=== PATIENT | female | born 1980 | race Two or more races ===

== ENCOUNTER 2020-08-03 21:21 | Emergency (ER) | payer BC, SELFPAY ==
[2020-08-03 22:02] VITALS: BP 153/80; PULSE 73; RESP 16; TEMP 36.6; O2SAT 99; BMI 34.8
--- NOTE | 2020-08-03 22:59 | ED.GENADULT ---
HPI - General Adult General Chief complaint: General Medical Stated complaint: Flu like symptoms Source: patient Mode of arrival: ambulatory Limitations: no limitations History of Present Illness HPI narrative: Patient presents to ED for sore throat for 2 weeks even while being on antibiotics there has been approved no improvement sore throat. Patient states she see white spots in her left tonsil. Patient denies any drooling, chest pain, shortness of breath, coughing up blood, fever, or chills. Patient no one at home having COVID like symptoms Related Data Previous Rx's Medication Instructions Recorded azithromycin 250 mg tablet See Rx Instructions PO .COMPLEX #6 07/27/20 tab Allergies Allergy/AdvReac Type Severity Reaction Status Date / Time Iodinated Contrast Media Allergy Unknown HIVES Unverified 04/30/20 16:48 [IV CONTRAST] diphenhydramine AdvReac Unknown SHAKING Unverified 04/30/20 16:48 [From BENADRYL] Benadryl Allergy Unknown chest pains Uncoded 12/10/19 00:00 IV contrast dye Allergy Unknown facial rash Uncoded 12/10/19 00:00 Latex Allergy Unknown rash Uncoded 12/10/19 00:00 Review of Systems Review of Systems: Yes all other systems are reviewed and are negative Constitutional: Constitutional: Reports as per HPI and Reports no additional constitutional complaints Eyes: Eyes: Reports as per HPI and Reports no additional eye complaints ENT: Reports system reviewed and no additional complaints, except as documented, Reports as per HPI and Reports sore throat Cardiovascular: Cardiovascular: Reports as per HPI and Reports no additional cardiovascular complaints Respiratory: Respiratory: Reports as per HPI and Reports no additional respiratory complaints Gastrointestinal: Gastrointestinal: Reports as per HPI and Reports no additional gastrointestinal complaints Musculoskeletal: Musculoskeletal: Reports no additional musculoskeletal complaints and Reports as per HPI Neurologic: Reports system reviewed and no additional complaints, except as documented and Reports as per HPI Psychiatric: Psychiatric: Reports no additional psychiatric complaints and Reports as per HPI [facility] Past Medical History Medical History (Updated 08/03/20 @ 23:43 by ISAI Laird) No known health problems Social History Social History Alcohol intake: never Smoking Status: Never smoker Use of substances other than those prescribed or required for medical reasons: No Advance Directives: No Advance Directives Information Provided: No Physical Exam Vital Signs: Vital Signs: Last Vital Signs Temp 97.9 F 12/21/20 22:02 Pulse 73 08/03/20 22:02 Resp 16 08/03/20 22:02 BP 153/80 H 08/03/20 22:02 Pulse Ox 99 08/03/20 22:02 Body Mass Index 34.8 Const: General: cooperative, healthy appearing, comfortable, no acute distress, well developed, alert, awake and Physically active Orientation/consciousness: patient oriented x3 HENMT: Other: Negative for white spots on pharynx or tonsils. Negative for any lymphadenopathy. Head: Yes normal to inspection and Yes No palpable skull fracture present Throat: Yes posterior oropharynx normal, Yes tonsils normal and Yes uvula midline Eyes: General: appearance normal, both eyes and all related structures Neck: Neck: Yes normal visual inspection, Yes full ROM, Yes no lymphadenopathy, Yes no meningeal signs, Yes trachea midline, Yes supple, No anterior neck swelling and No tender Chest: Chest palpation & inspection: normal inspection of the chest and normal palpation of entire chest wall Resp: Effort & Inspection: normal respiratory effort and able to speak in complete sentences Auscultation: clear to auscultation bilaterally Cardio: Jugular venous distension: no JVD Heart sounds: S1 normal heart sound present and S2 normal heart sound present GI: Inspection: Yes normal to inspection and No abdominal wall ecchymosis Palpation (GI): Soft to palpation, not firm, nontender, no guarding and not rigid : General: No CVA tenderness and Yes no CVA tenderness Back/Spine/Pelvis: Back: no CVA tenderness, No CVA tenderness and No back tenderness Skin: General skin exam: no rashes or lesions noted Neuro: General: patient oriented x3, No gait normal, no meningeal signs and No CN's II-XI intact bilaterally Extrem: General: Yes normal to inspection and Yes full ROM Psych: Appearance: grossly normal, well kempt and not disheveled Course Course Course Narrative: Patient's rapid strep came back negative after 2 weeks of sore throat. Oral cavity does not show signs for bacterial tonsillitis/pharyngitis. Patient made aware that she can take [id number] cepacol to help with sore throat. Reevaluation(s) Reevaluation #1: Patient is swabbed for COVID-19 virus and educated on self-isolation. Time: 23:41 Medical Decision Making [facility] Narrative Medical decision making narrative: Viral pharyngitis Discharge Plan Discharge Clinical Impression: Acute viral pharyngitis Patient Disposition: Home, Self-Care Instructions: Pharyngitis (ED) Additional Instructions: Return to the ED immediately for any chest pain, shortness of breath, coughing up blood, drooling, change in voice, neck swelling, or any other concerning symptoms. Recommend 14 days self-isolation and COVID test come back positive. Prescriptions: No Action azithromycin 250 mg tablet See Rx Instructions PO .COMPLEX Qty: 6 RF: 0 Referrals: Jonas Lebron MD [Primary Care Provider] - 2 days (Mild pharyngitis. COVID testing pending) Interventions: ED Discharge Assessment Last Done: 08/03/20 23:58 Discharge Date/Time: 08/04/20 00:07 Print Language: Luxembourgish
== END 2020-08-04 00:07 | disposition home or self-care (01) ==
PROVIDERS: Physician Assistant; Emergency Provider Internal Medicine; PCP Internal Medicine
DX: J02.8 Acute pharyngitis due to other specified organisms (principal); Z20.828 Contact with and (suspected) exposure to other viral communicable diseases
CPT/HCPCS: 87071; 87880; 99283; 99284; U0003

== ENCOUNTER 2021-05-11 08:51 | Outpatient (REF) | payer BC, SELFPAY ==
[2021-05-11 09:58] LABS: MANUAL DIFF FLAG NO
[2021-05-11 10:12] LABS: Basophils Percent Auto 0.3 % (0-2); Eosinophils Absolute Auto 0.2 X10*3/uL (0.0-0.4); Eosinophils Percent Auto 2.1 % (0-4); Hemoglobin 12.5 g/dl (12.0-16.0); Imm Gran Abs Auto 0.02 X10*3/uL (0.00-0.03); Imm Gran Pct Auto 0.3 % (0.0-0.4); Lymphocytes Absolute Auto 2.3 X10*3/uL (1.2-4.9); Lymphocytes Percent Auto 32.5 % (20-40); Mean Corpuscular HGB Conc 32.1 g/dl (31.0-35.0); Mean Corpuscular Hemoglobin 30.1 pg (27.0-33.0); Mean Platelet Volume 9.8 fL (9.4-12.3); Monocytes Absolute Auto 0.4 X10*3/uL (0.1-1.2); Monocytes Percent Auto 5.3 % (2-11); Neutrophils Absolute Auto 4.3 X10*3/uL (2.0-8.3); Neutrophils Percent Auto 59.5 % (45-73); Platelet Count 314 X10*3/uL (160-400); Red Blood Count 4.15 X10*6/uL (4.20-5.50); Red Cell Distribution Width 12.9 % (11.0-16.0); White Blood Count 7.2 X10*3/uL (4.8-10.8)
[2021-05-11 10:41] LABS: Alanine Aminotransferase 14 U/L (0-31); Albumin Level 4.3 g/dL (3.5-5.0); Alkaline Phosphatase 73 U/L (39-117); Anion Gap 12 (12-20); Aspartate Amino Transferase 18 U/L (5-31); Bilirubin Total 0.3 mg/dL (0.0-1.0); Blood Urea Nitrogen 16 mg/dL (9-16); Calcium 9.4 mg/dL (8.4-10.2); Carbon Dioxide 24 mmol/L (22-29); Chloride 107 mmol/L (96-108); Cholesterol 187 mg/dL; Estimated Glomerular Filt Rate > 60; Glucose Fasting 107 mg/dL (60-99); HDL Cholesterol 52 mg/dL; LDL Cholesterol Calculated 123 mg/dl; Potassium 4.3 mmol/L (3.3-5.1); Sodium 139 mmol/L (135-145); Total Protein 7.5 g/dL (6.5-8.0); Triglycerides 62 mg/dL
[2021-05-11 11:01] LABS: Appearance Urine HAZY; Color Urine YELLOW; Glucose Urine UA NEG (NEG); Leukocyte Esterase Urine NEG (NEG); Nitrite Urine NEG (NEG); PH 5.5 (5.0-8.0); Specific Gravity - Urine >= 1.030 (1.005-1.025); UACC Culture Trigger NO; Urine Blood 1+ (NEG); Urine Ketones NEG (NEG); Urine Protein NEG (NEG-TRACE)
[2021-05-11 11:06] LABS: TSH reflex Free T4 1.75 uIU/mL (0.32-4.0); Vitamin D 25-OH Total 21.8 ng/mL (>30)
[2021-05-11 11:23] LABS: Bacteria Urine 1+ /LPF; Mucus Urine 2+ /LPF; RBC Urine 0-2 /HPF (0); Squamous Epithelial Cell Urine 2+ /LPF; WBC Urine 0-2 /HPF (0-4)
[2021-05-11 12:17] LABS: Erythrocyte Sedimentation Rate 21 MM/HR (0-20)
== END 2021-05-11 08:52 | disposition home or self-care (01) ==
LOC: HO.LAB 08:51
PROVIDERS: PCP Internal Medicine; Visit Provider Internal Medicine
DX: Z00.00 Encounter for general adult medical examination without abnormal findings (principal); G47.62 Sleep related leg cramps; E66.9 Obesity, unspecified; E55.9 Vitamin D deficiency, unspecified
CPT/HCPCS: 36415; 80053; 80061; 81001; 81003; 82306; 84443; 85025; 85652

== ENCOUNTER 2021-10-14 11:01 | Outpatient (REF) | payer BC, SELFPAY ==
[2021-10-14 11:40] LABS: Basophils Percent Auto 0.1 % (0-2); Eosinophils Percent Auto 0.2 % (0-4); Hemoglobin 13.4 g/dl (12.0-16.0); Imm Gran Abs Auto 0.05 X10*3/uL (0.00-0.03); Imm Gran Pct Auto 0.4 % (0.0-0.4); Lymphocytes Absolute Auto 0.7 X10*3/uL (1.2-4.9); Lymphocytes Percent Auto 5.5 % (20-40); MANUAL DIFF FLAG SCAN; Mean Corpuscular HGB Conc 31.9 g/dl (31.0-35.0); Mean Corpuscular Volume 94.2 fL (80.0-98.0); Mean Platelet Volume 9.3 fL (9.4-12.3); Monocytes Absolute Auto 0.4 X10*3/uL (0.1-1.2); Neutrophils Absolute Auto 11.3 x10*3/uL (2.0-8.3); Neutrophils Percent Auto 90.8 % (45-73); Platelet Count 289 X10*3/uL (160-400); Red Blood Count 4.46 X10*6/uL (4.20-5.50); Red Cell Distribution Width 13.2 % (11.0-16.0); SCAN SMEAR FLAG 1; White Blood Count 12.5 X10*3/uL (4.8-10.8)
[2021-10-14 11:48] LABS: Estimated Average Glucose 111 mg/dL; Hemoglobin A1c % 5.5 %
[2021-10-14 12:22] LABS: Erythrocyte Sedimentation Rate 32 MM/HR (0-20); SLIDE REVIEW VERIFIED
[2021-10-14 12:41] LABS: Alanine Aminotransferase 12 U/L (0-31); Albumin Level 4.8 g/dL (3.5-5.0); Alkaline Phosphatase 84 U/L (39-117); Anion Gap 13 (12-20); Aspartate Amino Transferase 19 U/L (5-31); Bilirubin Total 0.6 mg/dL (0.0-1.0); Blood Urea Nitrogen 12 mg/dL (9-16); C Reactive Protein 5.15 mg/dL (< or = 0.50); Calcium 9.8 mg/dL (8.4-10.2); Carbon Dioxide 26 mmol/L (22-29); Chloride 103 mmol/L (96-108); Cholesterol 187 mg/dL; Estimated Glomerular Filt Rate > 60; Glucose Fasting 120 mg/dL (60-99); HDL Cholesterol 56 mg/dL; LDL Cholesterol Calculated 118 mg/dl; Potassium 4.2 mmol/L (3.3-5.1); Sodium 138 mmol/L (135-145); Total Protein 8.5 g/dL (6.5-8.0); Triglycerides 66 mg/dL
[2021-10-14 13:03] LABS: TSH reflex Free T4 0.56 uIU/mL (0.32-4.0)
[2021-10-14 13:11] LABS: Vitamin B12 593 pg/mL (200-900)
== END 2021-10-14 11:02 | disposition home or self-care (01) ==
LOC: HO.LAB 11:01
PROVIDERS: PCP Internal Medicine; Visit Provider Nurse Practitioner Acute Care
DX: J02.9 Acute pharyngitis, unspecified (principal)
CPT/HCPCS: 36415; 80053; 80061; 82607; 82746; 83036; 84443; 85025; 85652; 86140

== ENCOUNTER → 2022-02-17 09:41 | Outpatient (REF) | payer BC, SELFPAY ==
--- NOTE | 2022-02-17 09:44 | CA_ITS ---
Acquisition Time: 2022-02-17 10:04:15 Total Exercise Time: 00:06:24 Test Indications: CP Medications: SEE CHART Protocol: GINNY Max HR: 146 BPM 82% of Pred: 177 BPM Max BP: 142/080 mmHG Max Work Load: 7.5 METS Exercise stress test with exercise 6 min 24 sec of Ginny protocol, achieving 83% MPHR, with report of 8/10 mid chest tightness, mild sob, without arrythmia, with normotensive response to exercise, with EKG changes suggesting ischemia: borderline ST depression with downsloping ST segments inferiorly and V3- V6 with improvement in recovery. In recovery her chest tightness improved and resolved. Test reviewed with Dr Gunderson. Message sent to ordering provider with recommendation for nuclear stress test and referral to cardiology. Referred By: Dell Montana Overread By: NADIA LOJA
== END ==
LOC: HO.CARD 09:41
PROVIDERS: Visit Provider Nurse Practitioner Family
DX: R07.89 Other chest pain (principal); R00.2 Palpitations
CPT/HCPCS: 93017

== ENCOUNTER → 2022-03-11 09:06 | Outpatient (REF) | payer BC, SELFPAY ==
--- NOTE | ~2022-03-11 | NM_ITS ---
Lexiscan Myocardial perfusion study Indication: Abnormal EKG, assess for coronary disease and ischemia Technique: The patient was brought in for a Lexiscan perfusion study on 03/11/2022 and was injected 0.4 mg of Lexiscan intravenously. Within a minute of this injection 30 mCi of sestamibi was given intravenously. Images were obtained using the SPECT gamma camera interlaced with the gating device. Images were obtained in supine position. Resting perfusion study was performed on 03/14/2022. Patient was administered 30 mCi of sestamibi intravenously at rest. Images were then obtained in supine position. Total DLP 102mGy-cm. Images were processed with the software and compared side to side in short axis, horizontal long axis and vertical long axis views. Findings: Raw acquisition reviewed. The stress perfusion study showed no significant perfusion quality. Both uncorrected as well as CT attenuation corrected images were reviewed. The gated study shows normal LV systolic function with calculated LVEF of 69%. LV cavity is normal in size. The gated study shows normal wall thickening and contraction of segments. Resting study shows mildly diminished tracer uptake in the distal part of anterolateral wall. There is improvement with CT attenuation correction and hence suggestive of soft tissue attenuation artifact. Gating at rest reveals normal wall motion with ejection fraction at > 70 %. The findings are consistent with no definite reversible or fixed perfusion abnormality. NY/NY cardiolite stress test Impression: 1. Myocardial perfusion imaging study shows likely normal myocardial perfusion. 2. Gated LVEF is 69% during stress; > 70% during rest. 3. Transient ischemic dilatation not present. EKG component of the test reported separately.
--- NOTE | 2022-03-11 09:09 | CA_ITS ---
Acquisition Time: 2022-03-11 09:58:53 Total Exercise Time: 00:02:00 Test Indications: abn ekg Medications: see chart Protocol: LEXISCAN Max HR: 150 BPM 84% of Pred: 177 BPM Max BP: 128/070 mmHG Max Work Load: 1.6 METS Pharmacological stress test with Lexiscan injection, while walking slow on treadmill, with report of 8/10 mid chest tightness, without arrythmia, with normotensive response to injection, with EKG changes meeting criteria for ischemia: horizontal to downslope ST depression inferiorly and V3-V6 with gradual improvement in recovery. In recovery she was treated with Aminophylline 75mg IVP to reverse Lexiscan with full resolution of chest discomfort. Nuclear images pending. Test reviewed with Dr Schuster Pt instructed on light activity only until results of test are known. ED care of needed for symptoms. Recommended she start on Aspirin 81 mg daily until cardiac eval complete. Referred By: Dell Montana Overread By: NADIA LOJA
== END ==
LOC: HO.CARD 09:06
PROVIDERS: Visit Provider Nurse Practitioner Family
DX: R07.89 Other chest pain (principal); R94.39 Abnormal result of other cardiovascular function study
CPT/HCPCS: 78452; 93017; A9500; J0280; J2785

== ENCOUNTER 2022-05-20 13:15 | Outpatient (REF) | payer BC, SELFPAY ==
--- NOTE | ~2022-05-20 | MM_ITS ---
EXAMINATION: MM SCREENING DIGITAL BREAST TOMOSYNTHESIS, BILATERAL CLINICAL INFORMATION: Screening. Asymptomatic. The lifetime risk of breast cancer based on the Tyrer-Cuzick Model is 12%. COMPARISON: Mammography: 01/31/2020 (baseline). TECHNIQUE: Digital breast tomosynthesis is performed in both the craniocaudal and mediolateral oblique views along with computer-aided detection (CAD). Synthesized 2D images are generated from the tomosynthesis. FINDINGS: There are scattered areas of fibroglandular density (ACR BI-RADS breast composition Category b). There are no significant masses, abnormal calcifications, or other abnormalities. No developing density or architectural abnormality. Incidental intramammary node again seen seen central outer right breast. The axilla and skin contours are unremarkable. MM/MM tomosynthesis screening BI IMPRESSION: No mammographic evidence of malignancy. ASSESSMENT: BI-RADS 2: Benign RECOMMENDATION: Routine annual mammography screening. This patient's information was entered into a reminder system with a target due date for their next mammogram.
== END 2022-05-20 13:16 | disposition home or self-care (01) ==
LOC: HO.MAMMO 13:15
PROVIDERS: PCP Internal Medicine; Visit Provider Internal Medicine
DX: Z12.31 Encounter for screening mammogram for malignant neoplasm of breast (principal)
CPT/HCPCS: 77063; 77067

== ENCOUNTER 2022-06-14 18:45 | Outpatient (REF) | payer BC, SELFPAY ==
[2022-06-14 19:23] LABS: Appearance Urine Cloudy; Color Urine Orange; Glucose Urine UA Negative (Negative); Leukocyte Esterase Urine Large (3+) (Negative); Nitrite Urine Positive (Negative); Specific Gravity - Urine 1.015 (1.005-1.025); UMIC TRIGGER UACC YES; Urine Blood Trace (Negative); Urine Ketones Negative (Negative); Urine Protein Trace mg/dL (Neg-Trace)
[2022-06-14 19:25] LABS: Bacteria Urine 1+ (None Seen); Hyaline Casts Urine 0-2 /LPF (0-2); UACC Culture Trigger YES; WBC Urine 0-5 /HPF (0-5)
== END 2022-06-14 18:46 | disposition home or self-care (01) ==
LOC: HO.LNP 18:45
PROVIDERS: Visit Provider Internal Medicine
DX: R30.0 Dysuria (principal)
CPT/HCPCS: 81001; 81003; 87086; 87088; 87186

== ENCOUNTER → 2022-06-23 12:43 | Outpatient (BNVA) | payer BC, SELFPAY | PROVIDERS: PCP Internal Medicine; Referring Provider Internal Medicine; Visit Provider Internal Medicine | DX: R07.2 Precordial pain (principal) | CPT/HCPCS: 93005 ==

== ENCOUNTER 2023-01-03 14:14 | Emergency (ER) | payer BC, SELFPAY ==
--- NOTE | 2023-01-03 | ECG_ITS ---
Test Reason : CP Blood Pressure : / mmHG Vent. Rate : 081 BPM Atrial Rate : 081 BPM P-R Int : 150 ms QRS Dur : 074 ms QT Int : 366 ms P-R-T Axes : 018 011 017 degrees QTc Int : 425 ms Normal sinus rhythm Normal ECG When compared with ECG of 10-DEC-2019 23:03, No significant change was found Referred By: Generic ED Physician Electronically Signed By:KEVIN GARCIA
--- NOTE | ~2023-01-03 | XR_ITS ---
EXAMINATION: XR CHEST CLINICAL INFORMATION: Chest pain COMPARISON: Previous chest x-ray November 2019 TECHNIQUE: Frontal view of the chest was obtained. FINDINGS: No significant abnormality is noted involving the heart, lungs, mediastinum, bony thorax or soft tissues. XR/XR chest 1V IMPRESSION: Unremarkable examination.
[2023-01-03 14:29] VITALS: BP 115/60; PULSE 110; O2SAT 97
[2023-01-03 14:30] VITALS: BP 137/75; PULSE 83; RESP 20; TEMP 36.8; O2SAT 98; BMI 34.3
--- NOTE | 2023-01-03 14:48 | ED.CHESTPAIN ---
HPI - Chest Pain General Chief Complaint: Chest Pain Stated Complaint: CP Time Seen by Provider: 01/03/23 14:39 Source: patient Mode of arrival: EMS Limitations: no limitations History of Present Illness HPI narrative: Patient comes to the emergency room complaining of chest pain, intermittent that started 2 days ago. Patient states that 2 days ago she had an episode of chest pain, self-resolved, did not come to the hospital. This morning approximately 6 hours ago, patient started having left-sided chest pain, nonradiating. Patient states that she went to lie down and the pain actually became worse. Patient called the ambulance and she was given 1 dose of sublingual nitroglycerin and aspirin. Recurrent disease at this time she still feels a bit of pressure on the left side of the chest, denies shortness of breath, denies trauma or heavy lifting Related Data Previous Rx's Medication Instructions Recorded cyclobenzaprine 10 mg tablet 10 mg PO BEDTIME PRN muscle 12/29/20 spasm/leg cramps 30 days #30 tabs acetaminophen 500 mg tablet 1,000 mg PO Q6H PRN fever #30 tabs 10/14/21 ibuprofen 800 mg tablet 800 mg PO Q8H #30 tabs 10/14/21 metaxalone 800 mg tablet 800 mg PO TID PRN muscle pain 10 05/05/22 days #30 tabs Allergies Allergy/AdvReac Type Severity Reaction Status Date / Time Iodinated Contrast Media Allergy Unknown HIVES Verified 06/23/22 13:03 [IV CONTRAST] diphenhydramine AdvReac Unknown SHAKING Verified 06/23/22 13:03 [From BENADRYL] Benadryl Allergy Unknown chest pains Uncoded 06/23/22 13:03 IV contrast dye Allergy Unknown facial rash Uncoded 06/23/22 13:03 Latex Allergy Unknown rash Uncoded 06/23/22 13:03 Review of Systems Review of Systems: Constitutional : No Weight loss, No Fever, No Chills, No Night Sweats, No Fatigue, No Malaise ENT/Mouth : No Hearing loss, No Ear Pain, No Nasal Congestion, No Sinus Pain, No Hoarseness, No sore throat, No Rhinorrhea, No Swallowing Difficulty Eyes: No Eye Pain, No Swelling, No Redness, No Foreign Body, No Discharge, No Vision Changes Cardiovascular : Complaining of intermittent left-sided Chest Pain, No SOB, No Dyspnea on Exertion, No Orthopnea, No Edema, No Palpitations Respiratory : No Cough, No Sputum, No Wheezing, No Smoke Exposure, No Dyspnea Gastrointestinal : No Nausea, No Vomiting, No Diarrhea, No Constipation, No abdominal Pain, No Hematochezia, No Melena Genitourinary : no irregular bleeding, No Dysuria, No Urinary Frequency, No Hematuria, No Urinary Incontinence, No Urgency, No Flank Pain, No Urinary Flow Changes, No Hesitancy Musculoskeletal : No joint pain, No Myalgias, No Joint Swelling Skin : No Skin Lesions, No rash Neuro : No Weakness, No Numbness, No Paresthesias, No Loss of Consciousness, No Dizziness, No Headache Psych : No Anxiety/Panic, No Depression, No SI/HI/AH/VH, No Social Issues, Heme/Lymph: No Bruising, No Bleeding,No Lymphadenopathy Endocrine : No Polyuria, No Polydipsia, No Temperature Intolerance PMFSH Past Medical History Medical History Nocturnal leg cramps Obesity (BMI 30-39.9) Vitamin D deficiency Surgical History History of tubal ligation Previous section Family History Family History Mother No problems noted. Father High blood pressure Sister Diabetes mellitus Social History Social History Housing: Apartment Alcohol intake: never Patient Tobacco Use Status: Never used Tobacco e-Cigarette/Vaping Use: Never Used Second Hand Smoke Exposure: No Advance Directives: No Advance Directives Information Provided: No service: No Current occupational status: employed Current occupation: [employer] Cognitive needs: No Hearing needs: No Vision needs: No Physical Exam Vital Signs: Vital Signs: Last Vital Signs Temp 98.3 F 01/03/23 14:30 Pulse 83 01/03/23 14:30 Resp 20 01/03/23 14:30 BP 137/75 01/03/23 14:30 Pulse Ox 98 01/03/23 14:30 O2 Del Method Room Air 01/03/23 14:30 BMI result Body Mass Index 34.3 Const: Other: Appearance: Alert. Oriented X3. No acute distress. Eyes: Pupils equal, round and reactive to light. ENT: Pharynx normal. Neck: Normal inspection. Neck supple. No lymph nodes noted. No crepitus CVS: Normal heart rate and rhythm. Pulses normal. Normal S1 and S2, reproducible chest pain to palpation in the sternum Respiratory: No respiratory distress. Breath sounds normal. No Wheezing. No rales Abdomen: Soft and nontender. No rigidity. No distention. Skin: Skin warm and dry. Normal skin color. Normal skin turgor. Extremities: No lower extremity edema. No Lacerations. No Rash Neuro: Oriented X 3. No motor deficit. No sensory deficit. Moving all extremities. No slurred speech. CN 2 through 12 grossly intact Psych: calm, cooperative, normal affect Course Course Course Narrative: Patient's labs pending Medical Decision Making Medical Decision Making [facility] Narrative: EKG my interpretation: Sinus rhythm, heart rate 81, no ST segment depression or elevation, nonspecific T-wave inversion in lead 3, QTC 425 -chest x-ray my interpretation : no acute abnormality, no pneumothorax, no fracture ribs no infiltrate -at this time, patient asymptomatic, cardiac score 0, cardiac etiology of the chest pain is unlikely Lab Data [facility] Lab Attestation statement: I reviewed the patient's lab results. 01/03/23 15:03 01/03/23 15:03 Labs: Lab Results 01/03/23 01/03/23 01/03/23 Range/Units 15:03 15:03 15:03 WBC 8.4 (4.8-10.8) X10*3/uL RBC 3.72 L (4.20-5.50) X10*6/uL Hgb 11.3 L (12.0-16.0) g/dl Hct 34.4 L (37.0-47.0) % MCV 92.5 (80.0-98.0) fL MCH 30.4 (27.0-33.0) pg MCHC 32.8 (31.0-35.0) g/dl RDW 12.5 (11.0-16.0) % Plt Count 254 (160-400) X10*3/uL MPV 9.1 L (9.4-12.3) fL Immature Gran % (Auto) 0.4 (0.0-0.4) % Neut % (Auto) 75.8 H (45-73) % Lymph % (Auto) 16.9 L (20-40) % [place] % (Auto) 5.3 (2-11) % Eos % (Auto) 1.4 (0-4) % Baso % (Auto) 0.2 (0-2) % Lymph # (Auto) 1.4 (1.2-4.9) X10*3/uL [place] # (Auto) 0.4 (0.1-1.2) X10*3/uL Eos # (Auto) 0.1 (0.0-0.4) X10*3/uL Baso # (Auto) 0.0 (0.0-0.2) X10*3/uL Abs Immat Gran (auto) 0.03 (0.00-0.03) X10*3/uL Absolute Neuts (auto) 6.3 (2.0-8.3) x10*3/uL Absolute Nucleated RBC 0.000 (0.0-0.012) X10*3/uL Nucleated RBC % (auto) 0.0 (0.0-0.2) /100WBC Sodium 138 (135-145) mmol/L Potassium 4.3 (3.3-5.1) mmol/L Chloride 108 (96-108) mmol/L Carbon Dioxide 23 (22-29) mmol/L Anion Gap 11 L (12-20) BUN 13 (9-16) mg/dL Creatinine 0.82 (0.5-1.4) mg/dL Estim Creat Clear Calc 98.9 Estimated GFR > 60 Random Glucose 117 H (60-115) mg/dL Calcium 8.9 D (8.4-10.2) mg/dL Troponin I High Sens < 2.7 (<3.5-17.0) ng/L Radiology Impression Discussion of test interpretation with radiology: I have reviewed the radiologist's reading. Radiologist Impression: No significant abnormality is noted involving the heart, lungs, mediastinum, bony thorax or soft tissues. XR/XR chest 1V IMPRESSION: Unremarkable examination. ? Scores Heart Score History: -0- slightly suspicious ECG: -0- normal Age: -0- < or = 45 Risk factory: -0- no risk factors known Troponin: -0- < or = normal limit Score: 0 Risk: 1.7% Discharge Plan Discharge Clinical Impression: Atypical chest pain Patient Disposition: Home, Self-Care Instructions: Chest Pain (ED) Additional Instructions: Please follow-up with your primary care physician tomorrow. If you have any worsening or new symptoms, please return to the emergency room or call 911 Prescriptions: No Action cyclobenzaprine 10 mg tablet 10 mg PO BEDTIME PRN (Reason: muscle spasm/leg cramps) 30 Days Qty: 30 3RF metaxalone 800 mg tablet 800 mg PO TID PRN (Reason: muscle pain) 10 Days Qty: 30 1RF Rx Instructions: May cause drowsiness ibuprofen 800 mg tablet 800 mg PO Q8H Qty: 30 0RF acetaminophen 500 mg tablet 1,000 mg PO Q6H PRN (Reason: fever) Qty: 30 0RF
[2023-01-03 15:06] LABS: MANUAL DIFF FLAG NO
[2023-01-03 15:11] LABS: Basophils Percent Auto 0.2 % (0-2); Eosinophils Absolute Auto 0.1 X10*3/uL (0.0-0.4); Eosinophils Percent Auto 1.4 % (0-4); Hematocrit 34.4 % (37.0-47.0); Hemoglobin 11.3 g/dl (12.0-16.0); Imm Gran Abs Auto 0.03 X10*3/uL (0.00-0.03); Imm Gran Pct Auto 0.4 % (0.0-0.4); Lymphocytes Absolute Auto 1.4 X10*3/uL (1.2-4.9); Lymphocytes Percent Auto 16.9 % (20-40); Mean Corpuscular HGB Conc 32.8 g/dl (31.0-35.0); Mean Corpuscular Hemoglobin 30.4 pg (27.0-33.0); Mean Corpuscular Volume 92.5 fL (80.0-98.0); Mean Platelet Volume 9.1 fL (9.4-12.3); Monocytes Absolute Auto 0.4 X10*3/uL (0.1-1.2); Monocytes Percent Auto 5.3 % (2-11); Neutrophils Absolute Auto 6.3 x10*3/uL (2.0-8.3); Neutrophils Percent Auto 75.8 % (45-73); Platelet Count 254 X10*3/uL (160-400); Red Blood Count 3.72 X10*6/uL (4.20-5.50); Red Cell Distribution Width 12.5 % (11.0-16.0); White Blood Count 8.4 X10*3/uL (4.8-10.8)
[2023-01-03 15:33] LABS: Anion Gap 11 (12-20); Blood Urea Nitrogen 13 mg/dL (9-16); Calcium 8.9 mg/dL (8.4-10.2); Carbon Dioxide 23 mmol/L (22-29); Chloride 108 mmol/L (96-108); Creatinine Clr Calc Pharmacy 98.9; Estimated Glomerular Filt Rate > 60; Glucose Random 117 mg/dL (60-115); Potassium 4.3 mmol/L (3.3-5.1); Sodium 138 mmol/L (135-145)
[2023-01-03 15:42] LABS: Troponin-I High Sensitivity < 2.7 ng/L (<3.5-17.0)
[2023-01-03 17:15] VITALS: BP 106/61; PULSE 59; RESP 18; TEMP 36.9; O2SAT 99
== END 2023-01-03 17:20 | disposition home or self-care (01) ==
PROVIDERS: Emergency Provider Emergency Medicine; PCP Internal Medicine
DX: R07.89 Other chest pain (principal); E55.9 Vitamin D deficiency, unspecified; E66.9 Obesity, unspecified; Z68.34 Body mass index [BMI] 34.0-34.9, adult
CPT/HCPCS: 36415; 71045; 80048; 84484; 85025; 93005; 99283; 99284

== ENCOUNTER 2023-01-13 10:25 | Outpatient (REF) | payer BC, SELFPAY ==
[2023-01-13 12:09] LABS: Alanine Aminotransferase 13 U/L (0-31); Albumin Level 4.4 g/dL (3.5-5.0); Alkaline Phosphatase 73 U/L (39-117); Anion Gap 11 (12-20); Aspartate Amino Transferase 18 U/L (5-31); Bilirubin Total 0.5 mg/dL (0.0-1.0); Blood Urea Nitrogen 16 mg/dL (9-16); Calcium 9.3 mg/dL (8.4-10.2); Carbon Dioxide 25 mmol/L (22-29); Chloride 107 mmol/L (96-108); Cholesterol 182 mg/dL; Estimated Glomerular Filt Rate > 60; Glucose Fasting 100 mg/dL (60-99); HDL Cholesterol 50 mg/dL; LDL Cholesterol Calculated 122 mg/dl; Potassium 4.7 mmol/L (3.3-5.1); Sodium 138 mmol/L (135-145); Total Protein 7.8 g/dL (6.5-8.0); Triglycerides 51 mg/dL
[2023-01-13 12:11] LABS: TSH reflex Free T4 2.18 uIU/mL (0.32-4.0)
== END 2023-01-13 10:26 | disposition home or self-care (01) ==
LOC: HO.LAB 10:25
PROVIDERS: PCP Internal Medicine; Visit Provider Internal Medicine
DX: E78.00 Pure hypercholesterolemia, unspecified (principal)
CPT/HCPCS: 36415; 80053; 80061; 84443

== ENCOUNTER 2023-02-02 21:58 | Emergency (ER) | payer BC, SELFPAY ==
[2023-02-02 22:01] VITALS: BP 150/83; PULSE 82; RESP 16; TEMP 36.7; O2SAT 97; BMI 35.1
--- NOTE | 2023-02-02 22:04 | ECG_ITS ---
Test Reason : CHEST PAIN Blood Pressure : / mmHG Vent. Rate : 083 BPM Atrial Rate : 083 BPM P-R Int : 136 ms QRS Dur : 068 ms QT Int : 372 ms P-R-T Axes : 025 021 009 degrees QTc Int : 437 ms Normal sinus rhythm Nonspecific ST and T wave abnormality Abnormal ECG When compared with ECG of 03-JAN-2023 14:28, Nonspecific ST and T wave abnormality slightly more prominent Referred By: Generic ED Physician Electronically Signed By:KEVIN GARCIA
[2023-02-02 22:47] LABS: MANUAL DIFF FLAG NO
[2023-02-02 22:49] LABS: Basophils Percent Auto 0.3 % (0-2); Eosinophils Absolute Auto 0.2 X10*3/uL (0.0-0.4); Eosinophils Percent Auto 2.2 % (0-4); Hematocrit 34.6 % (37.0-47.0); Hemoglobin 11.2 g/dl (12.0-16.0); Imm Gran Abs Auto 0.02 X10*3/uL (0.00-0.03); Imm Gran Pct Auto 0.3 % (0.0-0.4); Lymphocytes Absolute Auto 2.2 X10*3/uL (1.2-4.9); Lymphocytes Percent Auto 28.4 % (20-40); Mean Corpuscular HGB Conc 32.4 g/dl (31.0-35.0); Mean Corpuscular Hemoglobin 29.9 pg (27.0-33.0); Mean Corpuscular Volume 92.3 fL (80.0-98.0); Mean Platelet Volume 9.6 fL (9.4-12.3); Monocytes Absolute Auto 0.5 X10*3/uL (0.1-1.2); Monocytes Percent Auto 6.2 % (2-11); Neutrophils Percent Auto 62.6 % (45-73); Platelet Count 282 X10*3/uL (160-400); Red Blood Count 3.75 X10*6/uL (4.20-5.50); Red Cell Distribution Width 12.5 % (11.0-16.0); White Blood Count 7.9 X10*3/uL (4.8-10.8)
[2023-02-02 23:08] LABS: Anion Gap 10 (12-20); Blood Urea Nitrogen 17 mg/dL (9-16); Calcium 8.9 mg/dL (8.4-10.2); Carbon Dioxide 27 mmol/L (22-29); Chloride 107 mmol/L (96-108); Estimated Glomerular Filt Rate > 60; Glucose Random 116 mg/dL (60-115); Sodium 140 mmol/L (135-145)
[2023-02-02 23:21] LABS: Troponin-I High Sensitivity < 2.7 ng/L (<3.5-17.0)
--- NOTE | 2023-02-03 00:27 | ED.CHESTPAIN ---
HPI - Chest Pain General Chief Complaint: Chest Pain Stated Complaint: Chest pain Time Seen by Provider: 02/02/23 22:40 Source: patient, family (Spouse) and educational interpreter Mode of arrival: ambulatory Limitations: no limitations History of Present Illness HPI narrative: 42-year-old female came in for evaluation of chest pain. Patient's symptoms started about 3 hours before coming to the hospital today, patient was in the kitchen cooking, denies any events happen during the chest pain. Pain was described as stabbing pain to the left chest wall with no radiation, pain is worse with taking deep breath, no SOB, no recent travel, no lower extremity swelling, no real lower extremities tenderness, no history of PE/DVT. Related Data Previous Rx's Medication Instructions Recorded cyclobenzaprine 10 mg tablet 10 mg PO BEDTIME PRN muscle 12/29/20 spasm/leg cramps 30 days #30 tabs acetaminophen 500 mg tablet 1,000 mg PO Q6H PRN fever #30 tabs 10/14/21 ibuprofen 800 mg tablet 800 mg PO Q8H #30 tabs 10/14/21 metaxalone 800 mg tablet 800 mg PO TID PRN muscle pain 10 05/05/22 days #30 tabs Allergies Allergy/AdvReac Type Severity Reaction Status Date / Time Iodinated Contrast Media Allergy Unknown HIVES Verified 01/10/23 13:59 [IV CONTRAST] diphenhydramine AdvReac Unknown SHAKING Verified 01/10/23 13:59 [From BENADRYL] Benadryl Allergy Unknown chest pains Uncoded 01/10/23 13:59 IV contrast dye Allergy Unknown facial rash Uncoded 01/10/23 13:59 Latex Allergy Unknown rash Uncoded 01/10/23 13:59 Review of Systems Review of Systems: All other systems are reviewed and are negative Constitutional: Reports as per HPI and Reports no additional constitutional complaints Eyes: Reports as per HPI and Reports no additional eye complaints Reports system reviewed and no additional complaints, except as documented Cardiovascular: Reports as per HPI and Reports no additional cardiovascular complaints Respiratory: Reports as per HPI and Reports no additional respiratory complaints Gastrointestinal: Reports as per HPI and Reports no additional gastrointestinal complaints Genitourinary: Reports no additional female genitourinary complaints Musculoskeletal: Reports no additional musculoskeletal complaints Skin/Breast: Reports system reviewed and no additional complaints, except as docu Psychiatric: Reports no additional psychiatric complaints Endocrine: Reports no additional endocrine complaints Hematologic/Lymphatic: Reports no additional hematologic/lymphatic complaints Allergic/Immunologic: Reports no additional allergic/immunologic complaints Reports system reviewed and no additional complaints, except as documented and Reports Abnormal speech present [facility], [facility] Past Medical History Medical History Nocturnal leg cramps Obesity (BMI 30-39.9) Vitamin D deficiency Surgical History History of tubal ligation Previous section Family History Family History Mother No problems noted. 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 Blood pressure normal. Heart rate normal. Respiration rate normal. Temperature normal. Oxygen saturation normal. Appearance: Alert. Oriented X3. No acute distress. Head: Normal external exam. Normocephalic. Atraumatic. No Wiley signs noted. No raccoon eyes noted Eyes: PERRLA. EOMI. Conjunctiva and sclera normal. Eyelids normal. ENT: TM's Normal. Pharynx normal. Uvula midline. Moist mucous membranes. No trismus noted. No drooling noted. No muffled voice noted. Neck: Normal inspection. Neck supple. FROM. No adenopathy. Thyroid Normal. No meningeal signs. No neck mass noted. CVS: Normal heart rate and rhythm. Heart sound normal. No murmurs noted. Pulses normal throughout. Respiratory: No respiratory distress. Painless inspiration. Breath sounds normal. No wheezes/rales/rhonchi noted. Chest nontender. No accessory muscle usage noted or decreased air movement noted. Abdomen: Soft and nontender. Bowel sounds normal in all 4 quadrants. No distention noted. No organomegaly noted. No visible injury noted. Back: No CVA tenderness. Full range of motion noted. Skin: Skin warm and dry. Normal skin color. Normal skin turgor. No rashes/lesions/lacerations noted. Extremities: No lower extremity edema. Extremities exhibit normal range of motion. Extremities nontender. Neuro: Oriented X 3. Cranial nerve exam: II-XII are grossly intact No motor deficit. No sensory deficit. Reflexes normal. Course Course Course Narrative: 42-year-old female came in for evaluation of left-sided chest pain, patient has unremarkable EKG and 2- troponin. Patient had similar presentation 4 weeks ago has unremarkable workup for her symptoms. Medical Decision Making Differential Diagnosis Differential Diagnoses: The differential diagnosis associated with the presentation includes (ACS, pneumonia, pneumothorax, pleural effusion, electrolyte abnormalities, dehydration, severe anemia.) Admission/Observation Consideration of admission/observation: Escalation of care including admission/observation considered Lab Data MDM Lab Attestation statement: I reviewed the patient's lab results. 02/02/23 22:43 02/02/23 22:43 Labs: Lab Results 02/02/23 02/02/23 02/02/23 Range/Units 22:43 22:43 22:43 WBC 7.9 (4.8-10.8) X10*3/uL RBC 3.75 L (4.20-5.50) X10*6/uL Hgb 11.2 L (12.0-16.0) g/dl Hct 34.6 L (37.0-47.0) % MCV 92.3 (80.0-98.0) fL MCH 29.9 (27.0-33.0) pg MCHC 32.4 (31.0-35.0) g/dl RDW 12.5 (11.0-16.0) % Plt Count 282 (160-400) X10*3/uL MPV 9.6 (9.4-12.3) fL Immature Gran % (Auto) 0.3 (0.0-0.4) % Neut % (Auto) 62.6 (45-73) % Lymph % (Auto) 28.4 (20-40) % [place] % (Auto) 6.2 (2-11) % Eos % (Auto) 2.2 (0-4) % Baso % (Auto) 0.3 (0-2) % Lymph # (Auto) 2.2 (1.2-4.9) X10*3/uL [place] # (Auto) 0.5 (0.1-1.2) X10*3/uL Eos # (Auto) 0.2 (0.0-0.4) X10*3/uL Baso # (Auto) 0.0 (0.0-0.2) X10*3/uL Abs Immat Gran (auto) 0.02 (0.00-0.03) X10*3/uL Absolute Neuts (auto) 5.0 (2.0-8.3) x10*3/uL Absolute Nucleated RBC 0.000 (0.0-0.012) X10*3/uL Nucleated RBC % (auto) 0.0 (0.0-0.2) /100WBC Sodium 140 (135-145) mmol/L Potassium 4.0 (3.3-5.1) mmol/L Chloride 107 (96-108) mmol/L Carbon Dioxide 27 (22-29) mmol/L Anion Gap 10 L (12-20) BUN 17 H (9-16) mg/dL Creatinine 0.83 (0.5-1.4) mg/dL Estim Creat Clear Calc 92.0 Estimated GFR > 60 Random Glucose 116 H (60-115) mg/dL Calcium 8.9 (8.4-10.2) mg/dL Troponin I High Sens < 2.7 (<3.5-17.0) ng/L Independent Interpretation I performed an independent interpretation of an: EKG (Normal sinus rhythm, normal axis deviation, normal intervals, nonspecific ST-T changes, no changes from previous EKG.) and Plain X-Ray (Chest: No acute intrathoracic pathology.) Radiology Impression Discussion of test interpretation with radiology: I have reviewed the radiologist's reading. Discharge Plan Discharge Clinical Impression: Atypical chest pain Patient Disposition: Home, Self-Care Instructions: Chest Pain (ED) Prescriptions: No Action cyclobenzaprine 10 mg tablet 10 mg PO BEDTIME PRN (Reason: muscle spasm/leg cramps) 30 Days Qty: 30 3RF metaxalone 800 mg tablet 800 mg PO TID PRN (Reason: muscle pain) 10 Days Qty: 30 1RF Rx Instructions: May cause drowsiness ibuprofen 800 mg tablet 800 mg PO Q8H Qty: 30 0RF acetaminophen 500 mg tablet 1,000 mg PO Q6H PRN (Reason: fever) Qty: 30 0RF Referrals: Jonas Lebron MD [Primary Care Provider] -
[2023-02-03 01:27] LABS: Troponin-I High Sensitivity < 2.7 ng/L (<3.5-17.0)
== END 2023-02-03 01:44 | disposition home or self-care (01) ==
PROVIDERS: Emergency Provider Emergency Medicine; PCP Internal Medicine
DX: R07.89 Other chest pain (principal); Z79.899 Other long term (current) drug therapy
CPT/HCPCS: 36415; 80048; 84484; 85025; 93005; 99284

== ENCOUNTER 2023-05-10 08:46 | Outpatient (REF) | payer BC, SELFPAY ==
[2023-05-10 10:09] LABS: Basophils Percent Auto 0.3 % (0-2); Eosinophils Absolute Auto 0.1 X10*3/uL (0.0-0.4); Eosinophils Percent Auto 2.2 % (0-4); Hematocrit 38.1 % (37.0-47.0); Hemoglobin 12.2 g/dl (12.0-16.0); Imm Gran Abs Auto 0.02 X10*3/uL (0.00-0.03); Imm Gran Pct Auto 0.3 % (0.0-0.4); Lymphocytes Absolute Auto 1.8 X10*3/uL (1.2-4.9); Lymphocytes Percent Auto 27.6 % (20-40); MANUAL DIFF FLAG NO; Mean Corpuscular Hemoglobin 29.5 pg (27.0-33.0); Mean Corpuscular Volume 92.3 fL (80.0-98.0); Mean Platelet Volume 9.8 fL (9.4-12.3); Monocytes Absolute Auto 0.4 X10*3/uL (0.1-1.2); Monocytes Percent Auto 6.1 % (2-11); Neutrophils Absolute Auto 4.1 x10*3/uL (2.0-8.3); Neutrophils Percent Auto 63.5 % (45-73); Platelet Count 295 X10*3/uL (160-400); Red Blood Count 4.13 X10*6/uL (4.20-5.50); Red Cell Distribution Width 13.3 % (11.0-16.0); White Blood Count 6.4 X10*3/uL (4.8-10.8)
[2023-05-10 10:33] LABS: Appearance Urine Clear; Color Urine Yellow; Glucose Urine UA Negative (Negative); Leukocyte Esterase Urine Small (1+) (Negative); Nitrite Urine Negative (Negative); PH 5.5 (5.0-9.0); UMIC TRIGGER UACC YES; Urine Blood Negative (Negative); Urine Ketones Negative (Negative); Urine Protein Negative (Neg-Trace)
[2023-05-10 10:43] LABS: Bacteria Urine 1+ (None Seen); Hyaline Casts Urine 0-2 /LPF (0-2); UACC Culture Trigger YES
[2023-05-10 10:57] LABS: Erythrocyte Sedimentation Rate 18 MM/HR (0-20)
[2023-05-10 12:05] LABS: Alanine Aminotransferase 9 U/L (0-31); Albumin Level 4.2 g/dL (3.5-5.0); Alkaline Phosphatase 70 U/L (39-117); Anion Gap 10 (12-20); Aspartate Amino Transferase 18 U/L (5-31); Bilirubin Total 0.7 mg/dL (0.0-1.0); Blood Urea Nitrogen 11 mg/dL (9-16); Calcium 9.2 mg/dL (8.4-10.2); Carbon Dioxide 26 mmol/L (22-29); Chloride 106 mmol/L (96-108); Cholesterol 160 mg/dL (<200); Estimated Glomerular Filt Rate > 60; Glucose Fasting 105 mg/dL (60-99); HDL Cholesterol 49 mg/dL (>40); LDL Cholesterol Calculated 99 mg/dL (<100); Potassium 4.2 mmol/L (3.3-5.1); Sodium 138 mmol/L (135-145); Total Protein 7.5 g/dL (6.5-8.0); Triglycerides 60 mg/dL (<150)
[2023-05-10 12:20] LABS: TSH reflex Free T4 1.91 uIU/mL (0.32-4.0); Vitamin D 25-OH Total 25.6 ng/mL (>30)
== END 2023-05-10 08:47 | disposition home or self-care (01) ==
LOC: HO.LAB 08:46
PROVIDERS: PCP Internal Medicine; Visit Provider Internal Medicine
DX: R07.2 Precordial pain (principal); I10 Essential (primary) hypertension; E78.00 Pure hypercholesterolemia, unspecified; M79.7 Fibromyalgia; E55.9 Vitamin D deficiency, unspecified; R82.90 Unspecified abnormal findings in urine
CPT/HCPCS: 36415; 80053; 80061; 81001; 82306; 84443; 85025; 85652; 87086

== ENCOUNTER 2023-05-18 10:03 | Outpatient (AMB) | payer BC, SELFPAY ==
[2023-05-18 10:24] VITALS: BP 110/80; PULSE 62; O2SAT 97; BMI 35.1
--- NOTE | 2023-05-18 10:24 | MHC.PC.OV ---
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 Accompanied by: Self / Same As Patient Allergies Iodinated Contrast Media [IV CONTRAST] Allergy (Unknown, Verified 05/18/23 11:06) HIVES diphenhydramine [From BENADRYL] Adverse Reaction (Unknown, Verified 05/18/23 11:06) SHAKING Benadryl Allergy (Unknown, Uncoded 05/18/23 11:06) chest pains IV contrast dye Allergy (Unknown, Uncoded 05/18/23 11:06) facial rash Latex Allergy (Unknown, Uncoded 05/18/23 11:06) rash Medication List - Last Reconciled 05/18/23 by Jonas Lebron MD acetaminophen 1,000 mg (2 x 500 mg) PO Q6H PRN cyclobenzaprine 10 mg PO BEDTIME PRN 30 days ibuprofen 800 mg PO Q8H metaxalone 800 mg PO TID PRN 10 days NS Tobacco use date assessed: 05/18/23 Dental Screening Dental Screen Date: 05/18/23 Did you have a dental visit in the last 12 months?: Yes Did you have a dental problem in the last 6 months where you did not have access to dental care?: No Was dental information given to patient?: Patient has dentist HPI PE HPI Details Patient comes in today for her annual physical examination States that she feels okay She denies any headaches or dizziness Denies any chest pains, no SOB No nausea/vomiting, no abdominal pain No change in bowel habits noted Denies any acute urinary symptoms Had her follow up labs done last week - to discuss her results Would also like to get her flu shot today Has her mammogram scheduled for next week on 05/26/23 Has not see gynecology or had pap smear done in years [facility] Medical History Vitamin D deficiency Obesity (BMI 30-39.9) Nocturnal leg cramps Surgical History History of tubal ligation Previous section Family History Mother No problems noted. Father High blood pressure Sister Diabetes mellitus Social History Housing: Apartment Alcohol intake: never Patient Tobacco Use Status: Never used Tobacco e-Cigarette/Vaping Use: Never Used Second Hand Smoke Exposure: No service: No Current occupational status: employed Current occupation: [employer] Cognitive needs: No Hearing needs: No Vision needs: No Questionnaire PHQ-9 Over the last 2 weeks, how often have you been bothered by any of the following problems? 1. Little interest or pleasure in doing things: not at all 2. Feeling down, depressed, or hopeless: not at all 3. Trouble falling or staying asleep, or sleeping too much: not at all 4. Feeling tired or having little energy: not at all 5. Poor appetite or overeating: not at all 6. Feeling bad about yourself - or that you are a failure or have let yourself or your family down: not at all 7. Trouble concentrating on things, such as reading the newspaper or watching television: not at all 8. Moving or speaking so slowly that other people could have noticed. Or the opposite - being so fidgety or restless that you have been moving around a lot more than usual: not at all 9. Thoughts that you would be better off or of hurting yourself in some way: not at all Total score: 0 Depression Screening Interpretation: Negative Depression Screening Done: Yes [id number] - PHQ-9 Billing: Yes Source: Developed by Drs. Bud Crystal, Thais Oliver, Rock Walter and colleagues, with an educational nguyen from [employer]. Thrive Questionnaire Date Thrive assessed: 05/18/23 I am a: Patient What is your living situation today?: I have a steady place to live Within the past 12 months, did the food you bought not last and you didn't have the money to get more?: Never true Within the past 12 months, did you worry whether your food would run out before you got money to buy more?: Never true Do you have trouble paying for medicines?: No Do you have trouble getting transportation to medical appointments?: No Do you have trouble paying your heating and electricity bill?: No Do you have trouble taking care of your child, family member or friend?: No Do you have trouble with day-to-day activities such as bathing, preparing meals, shopping, managing finances, etc.?: No Are you currently unemployed and looking for a job?: No Are you interested in more education?: No Please select the resources that you would like help with: None Currently or been in a relationship where the following occur: no concerns reported AUDIT C Alcohol Use Questionnaire (AUDIT-C) 1. How often do you have a drink containing alcohol?: Never Total Score: 0 Score Reviewed/Action Taken: Yes TANJA-7 AMB Questionnaire TANJA-7 Date TANJA - 7 assessed: 05/18/23 Feeling nervous, anxious, or on edge: 0 = Not at all Not being able to stop or control worryin = Not at all Worrying too much about different things: 0 = Not at all Trouble relaxin = Not at all Being so restless that it is hard to sit still: 0 = Not at all Becoming easily annoyed or irritable: 0 = Not at all Feeling afraid as if something awful might happen: 0 = Not at all Total TANJA-7 score (0-4 normal; 5-9 mild; 10-14 moderate; 15-21 severe): 0 Source: Developed by Drs. Bud Crystal, Thais Oliver, Rock Walter and colleagues, with an educational nguyen from [employer]. Review of Systems Const Denies chills, Denies fatigue, Denies fever(s), Denies headache(s) and Denies malaise Eyes Denies blurry vision, Denies change in vision, Denies irritation and Denies itchy eyes ENT Denies dysphagia, Denies dizziness, Denies otalgia, Denies headache(s), Denies nasal congestion, Denies neck pain, Denies odynophagia, Denies sinus pain and Denies sore throat Card Denies chest pain, Denies rapid heart rate, Denies irregular heart rhythm, Denies palpitations and Denies dyspnea Resp Denies chest congestion, Denies cough, Denies dyspnea and Denies wheezing GI Denies abdominal pain, Denies bloating, Denies constipation, Denies dysphagia, Denies heartburn, Denies diarrhea, Denies nausea, Denies odynophagia and Denies vomiting Denies hematuria, Denies urinary frequency, Denies dysuria, Denies urinary incontinence and Denies urinary urgency Musc Denies back pain, Denies arthralgias, Denies joint swelling, Denies muscle weakness and Denies neck pain Skin/Breast Denies breast pain, Denies breast mass, Denies change in pigmentation, Denies lesions, Denies rash and Denies unusual bruising Neuro Denies dizziness, Denies headache(s) and Denies paresthesias Psych Denies anxiety and Denies depression Endo Denies fatigue and Denies palpitations Doni/Lymph Denies easy bruising Aller/Immun Denies itchy eyes and Denies wheezing Physical exam (Primary Care) Vital Signs: Last Vital Signs Pulse 62 05/18/23 10:24 BP 110/80 05/18/23 10:24 Pulse Ox 97 05/18/23 10:24 Oxygen Delivery Method Room Air 05/18/23 10:24 BMI result Body Mass Index 35.1 Tobacco/Smoking Status: Tobacco use Status Tobacco use date assessed 05/18/23 05/18/23 10:31 Patient Tobacco Use Status Never used Tobacco 05/18/23 10:31 e-Cigarette/Vaping Use Never Used 05/18/23 10:31 PHQ-9: PHQ-9 Score PHQ-9: Total score 0 05/18/23 23:06 Depression Screening Interpretation: Negative Thrive Assessment: Date of Thrive Assessment Date Thrive assessed 05/18/23 05/18/23 10:31 Currently or been in a relationship where the following occur: no concerns reported Const General: no acute distress, alert and awake Orientation/consciousness: patient oriented x3 HENMT Head: Yes normocephalic and Yes atraumatic Ears: external ears normal, TM's normal bilaterally and EAC's normal General nose exam: No nasal discharge present Face and sinus: Yes normal facial exam and Yes sinuses nontender Teeth and gingiva: dentition normal Throat: Yes posterior oropharynx normal and Yes tonsils normal (no TP congestion) Eyes Eyelids: Yes eyelids normal Conjunctivae: conjunctivae normal Pupils: Equal, round and reactive pupils present EOM: EOMs intact bilaterally Neck Neck: Yes no lymphadenopathy and Yes supple Thyroid: Thyroid normal Resp Auscultation: clear to auscultation bilaterally, no rales and no wheezes Cardio Rate: regular rate Rhythm: regular rhythm Heart sounds: no murmurs GI Palpation (GI): Soft to palpation, nontender and No hepatosplenomegaly present Auscultation: normal bowel sounds General: Yes no CVA tenderness Back/Spine/Pelvis Back: no CVA tenderness Thoracic/Lumbar Spine: thoracic and lumbar spine normal to inspection Skin Lesions: no lesions Rashes: no rashes Neuro General: patient oriented x3, moves all extremities, no focal motor deficits and CN's II-XI intact bilaterally Cranial nerves: Yes Equal, round and reactive pupils present Cognition (Neuro): normal cognition Gait exam (Neuro): Normal gait present Extrem General: Yes no clubbing, cyanosis or edema Office Procedures Flu Questionnaire Does the patient have a severe egg allergy?: No Does the patient have severe life threatening allergies?: No Does the patient have a fever or illness today?: No Has the patient ever had Guillain-Friedheim Syndrome?: No Has the patient ever had any past reaction to a flu shot?: No Immunizations flu vacc [id number] 6mos up(PF) 60 mcg(15 mcgx4)/0.5 mL IM syringe Performing Provider: Jonas Lebron MD Performing Location: [facility] Administered by: Remi Vera on 05/18/23 11:22 Dose Route Admin Location Dispensed Lot Number Expiration Date NDC Machine Grainer 0.5 mL IM Left Deltoid 0.5 mL [id number] 02/11/24 59554-872-06 [employer] VIS Given Date VIS Provided VIS Publication Date 05/18/23 Single Vaccine 21 Eligibility Eligibility Date Funding Source Not [facility] Eligible 05/18/23 Private Results Reviewed Results Reviewed: Laboratory Tests 05/10/23 05/10/23 05/10/23 08:51 08:51 09:08 WBC 6.4 Hgb 12.2 Hct 38.1 Plt Count 295 ESR Sodium Potassium Creatinine Estimated GFR Fasting Glucose Calcium AST ALT Triglycerides Cholesterol LDL Cholesterol, Calc HDL Cholesterol 25-OH Vitamin D Total TSH Ur Specific Huger 1.020 Urine Protein Negative Urine Glucose (UA) Negative Urine Blood Negative 05/10/23 05/10/23 Unknown Unknown WBC Hgb Hct Plt Count ESR 18 Sodium 138 Potassium 4.2 Creatinine 0.79 Estimated GFR > 60 Fasting Glucose 105 H Calcium 9.2 AST 18 ALT 9 Triglycerides 60 Cholesterol 160 LDL Cholesterol, Calc 99 HDL Cholesterol 49 25-OH Vitamin D Total 25.6 TSH 1.91 Ur Specific Huger Urine Protein Urine Glucose (UA) Urine Blood Assessment and Plan Assessment & Plan (1) Annual physical exam: Code(s): Z00.00 - Encounter for general adult medical examination without abnormal findings Plan: Results of her labs done last week reviewed and discussed with patient - advised that her labs were mostly okay/normal except for her vitamin D level and blood sugar Her cholesterol numbers have improved from last year She is scheduled for her annual mammogram next week on 05/26/23 (2) Impaired fasting glucose: Code(s): R73.01 - Impaired fasting glucose Plan: FBS is again slightly elevated on her labs done last week at 105 mg/dl; HgbA1c was normal at 5.5% when last checked in October 2021 Reinforced low calorie/low carb diet, exercise as tolerated Will continue to monitor and watch her blood sugar readings regularly - will recheck her HgbA1c and RBS here in the office when she comes in for her follow up appt in 6 months (3) Vitamin D deficiency: Code(s): E55.9 - Vitamin D deficiency, unspecified Plan: Vitamin D level was still low on her labs done last week Will start her on Vitamin D3 2000 units QD (4) Obesity (BMI 30-39.9): Code(s): E66.9 - Obesity, unspecified Plan: Reinforced diet/exercise as tolerated/lose weight (5) Cervical cancer screening: Code(s): Z12.4 - Encounter for screening for malignant neoplasm of cervix Plan: States that it has been at least 6 years now since she has seen gynecology or had a pap smear done Will refer her to [facility] for her annual pap smear and physician gynecologist exam Plan Flu vaccine given today Follow up in 6 months Orders: Orders Influenza [id number] Immunization 05/18/23 Z23 - Encounter for immunization Referrals BIOTECHNICIAN Referral Z12.4 - Encounter for screening for malignant neoplasm of cervix Medications: New cholecalciferol (vitamin D3) 50 mcg PO DAILY 90 days 90 caps 3RF E55.9 - Vitamin D deficiency, unspecified Coding Level of Care Code Est Pt Prev Care 40-64y([id number]) Diagnoses Annual physical exam Z00.00 Impaired fasting glucose R73.01 Vitamin D deficiency E55.9 Obesity (BMI 30-39.9) E66.9 Cervical cancer screening Z12.4
== END 2023-05-18 11:27 | disposition home or self-care (01) ==
PROVIDERS: Visit Provider Internal Medicine
DX: Z23 Encounter for immunization (principal)
CPT/HCPCS: 90471; 90686; 99396

== ENCOUNTER 2023-05-26 12:57 | Outpatient (REF) | payer BC, SELFPAY ==
--- NOTE | ~2023-05-26 | MM_ITS ---
EXAMINATION: MM SCREENING DIGITAL BREAST TOMOSYNTHESIS, BILATERAL CLINICAL INFORMATION: Screening. Asymptomatic. COMPARISON: Mammography: This study is compared with prior exams dating back to . TECHNIQUE: Digital breast tomosynthesis is performed in both the craniocaudal and mediolateral oblique views along with computer-aided detection (CAD). Synthesized 2D images are generated from the tomosynthesis. FINDINGS: There are scattered areas of fibroglandular density (ACR BI-RADS breast composition Category b). There are no significant masses, abnormal calcifications, or other abnormalities. MM/MM tomosynthesis screening BI IMPRESSION: No mammographic evidence of malignancy. ASSESSMENT: BI-RADS BI-RADS 1 - Negative RECOMMENDATION: Routine annual mammography screening. 1 year F/U This examination should not preclude the clinical evaluation of a suspicious palpable abnormality. This patient's information was entered into a reminder system with a target due date for their next mammogram.
== END 2023-05-26 12:58 | disposition home or self-care (01) ==
LOC: HO.MAMMO 12:57
PROVIDERS: PCP Internal Medicine; Visit Provider Internal Medicine
DX: Z12.31 Encounter for screening mammogram for malignant neoplasm of breast (principal)
CPT/HCPCS: 77063; 77067

== ENCOUNTER → 2023-05-26 13:15 | Outpatient (BNV) | payer BC, SELFPAY | PROVIDERS: PCP Internal Medicine; Visit Provider Radiology Diagnostic Radiology | DX: Z12.31 Encounter for screening mammogram for malignant neoplasm of breast (principal) | CPT/HCPCS: 77063; 77067 ==

== ENCOUNTER 2023-07-24 07:43 | Outpatient (AMB) | payer BC, SELFPAY ==
[2023-07-24 07:57] VITALS: BP 116/80; PULSE 65; O2SAT 98; BMI 32.9
--- NOTE | 2023-07-24 07:57 | A.OFFPC_ITS ---
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 Design Drafter Required: Yes Electromechanisms Design Drafter Name: [id number] Information Interpreted: non-clinical & clinical Allergies Iodinated Contrast Media [IV CONTRAST] Allergy (Unknown, Verified 07/24/23 08:08) HIVES diphenhydramine [From BENADRYL] Adverse Reaction (Unknown, Verified 07/24/23 08:08) SHAKING Benadryl Allergy (Unknown, Uncoded 07/24/23 07:58) chest pains IV contrast dye Allergy (Unknown, Uncoded 07/24/23 07:58) facial rash Latex Allergy (Unknown, Uncoded 07/24/23 07:58) rash Medication List - Last Reconciled 07/24/23 by KELI Cifuentes acetaminophen 1,000 mg (2 x 500 mg) PO Q6H PRN cholecalciferol (vitamin D3) 50 mcg PO DAILY 90 days cyclobenzaprine 10 mg PO BEDTIME PRN 30 days ibuprofen 800 mg PO Q8H metaxalone 800 mg PO TID PRN 10 days NS Tobacco use date assessed: 05/18/23 Dental Screening Dental Screen Date: 07/24/23 Did you have a dental visit in the last 12 months?: Yes Did you have a dental problem in the last 6 months where you did not have access to dental care?: No Was dental information given to patient?: Patient has dentist HPI HPI Comments History of Present Illness Details 42-year-old Lao-speaking female past medical history significant for impaired fasting glucose, vitamin-D deficiency. Patient of Dr. Bernardino lamb seen in May patient presents today for ecological technical officer referral. Patient reports was eating snickers 1 month the candybar and she woke up and her eyes were swollen. Patient went to [facility] and was told possibly new peanut allergy. Patient denied throat/tongue swelling, difficulty breathing. Patient reports took a Zyrtec x3 days until symptoms resolved. Patient requesting referral to ecological technical officer for allergy testing. Appointment was completed with certified senior database administrator. [facility] Medical History Vitamin D deficiency Obesity (BMI 30-39.9) Nocturnal leg cramps Surgical History History of tubal ligation Previous section Family History Mother No problems noted. 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 1. Little interest or pleasure in doing things: not at all 2. Feeling down, depressed, or hopeless: not at all 3. Trouble falling or staying asleep, or sleeping too much: not at all 4. Feeling tired or having little energy: not at all 5. Poor appetite or overeating: not at all 6. Feeling bad about yourself - or that you are a failure or have let yourself or your family down: not at all 7. Trouble concentrating on things, such as reading the newspaper or watching television: not at all 8. Moving or speaking so slowly that other people could have noticed. Or the opposite - being so fidgety or restless that you have been moving around a lot more than usual: not at all 9. Thoughts that you would be better off or of hurting yourself in some way: not at all Total score: 0 Depression Screening Interpretation: Negative Depression Screening Done: Yes 79209 - PHQ-9 Billing: Yes Source: Developed by Drs. Bud Crystal, Thais Oliver, Rock Walter and colleagues, with an educational nguyen from [employer]. Thrive Questionnaire Date Thrive assessed: 05/18/23 AUDIT C Alcohol Use Questionnaire (AUDIT-C) 1. How often do you have a drink containing alcohol?: Never Total Score: 0 Score Reviewed/Action Taken: Yes TANJA-7 AMB Questionnaire TANJA-7 Date TANJA - 7 assessed: 05/18/23 Source: Developed by Drs. Bud Crystal, Thais Oliver, Rock Walter and colleagues, with an educational nguyen from [employer]. Review of Systems Const Denies chills, Denies fatigue, Denies fever(s) and Denies poor appetite Eyes Denies no additional complaints ENT Reports Normal hearing present Card Denies chest pain, Denies syncope, Denies rapid heart rate and Denies dyspnea Resp Denies cough and Denies dyspnea GI Denies change in stool character, Denies constipation, Denies diarrhea, Denies nausea and Denies vomiting Denies urinary frequency, Denies dysuria and Denies urinary urgency Neuro Reports Normal hearing present, Denies confusion and Denies syncope Psych Denies confusion Endo Denies fatigue Physical exam (Primary Care) Vital Signs: Last Vital Signs Pulse 65 07/24/23 07:57 BP 116/80 07/24/23 07:57 Pulse Ox 98 07/24/23 07:57 Oxygen Delivery Method Room Air 07/24/23 07:57 BMI result Body Mass Index 32.9 Tobacco/Smoking Status: Tobacco use Status Tobacco use date assessed 05/18/23 07/24/23 08:01 Patient Tobacco Use Status Never used Tobacco 07/24/23 08:01 e-Cigarette/Vaping Use Never Used 07/24/23 08:01 PHQ-9: PHQ-9 Score PHQ-9: Total score 0 07/24/23 08:02 Depression Screening Interpretation: Negative Thrive Assessment: Date of Thrive Assessment Date Thrive assessed 05/18/23 07/24/23 08:01 Const General: No confusion Orientation/consciousness: No confusion HENMT Head: Yes normocephalic and Yes atraumatic Eyes Conjunctivae: conjunctivae normal Chest Chest palpation & inspection: normal inspection of the chest Resp Effort & Inspection: normal respiratory effort Auscultation: clear to auscultation bilaterally, no crackles, no rhonchi and no wheezes Cardio Rate: regular rate Rhythm: regular rhythm Heart sounds: S1 normal heart sound present and S2 normal heart sound present Peripheral pulses: dorsalis pedis present GI Inspection: Yes normal to inspection General: Yes no CVA tenderness Back/Spine/Pelvis Back: no CVA tenderness Neuro General: No confusion Cranial nerves: Yes Normal hearing present Extrem General: No edema Assessment and Plan Assessment & Plan (1) Allergic reaction: Code(s): T78.40XA - Allergy, unspecified, initial encounter Plan: Patient advised to avoid peanut containing products until able to have allergy testing Signs and symptoms reviewed with patient of severely urgent reaction when to seek medical attention. Referral entered to ecological technical officer for allergy testing. Orders: Referrals Allergy & Immunology Referral Z01.82 - Encounter for allergy testing Coding Level of Care Code Est Pt Level 3 (73697) Diagnoses Allergic reaction T78.40XA
== END 2023-07-24 09:18 | disposition home or self-care (01) ==
PROVIDERS: PCP Internal Medicine; Visit Provider Nurse Practitioner Family
DX: T78.40XA Allergy, unspecified, initial encounter (principal)
CPT/HCPCS: 99213

== ENCOUNTER 2023-08-07 20:40 | Emergency (ER) | payer BC, SELFPAY ==
--- NOTE | 2023-08-07 | ECG_ITS ---
Test Reason : MUSCULAR CHEST PAIN Blood Pressure : / mmHG Vent. Rate : 074 BPM Atrial Rate : 074 BPM P-R Int : 124 ms QRS Dur : 072 ms QT Int : 376 ms P-R-T Axes : 021 029 024 degrees QTc Int : 417 ms Normal sinus rhythm Normal ECG When compared with ECG of 02-FEB-2023 22:03, No significant changes seen Referred By: Generic ED Physician Electronically Signed By:KEVIN GARCIA
[2023-08-07 20:41] VITALS: BP 148/79; PULSE 102; RESP 16; TEMP 36.9; O2SAT 97; BMI 36.3
[2023-08-07 21:20] LABS: MANUAL DIFF FLAG NO
[2023-08-07 21:21] LABS: Basophils Percent Auto 0.3 % (0-2); Eosinophils Absolute Auto 0.3 X10*3/uL (0.0-0.4); Eosinophils Percent Auto 4.2 % (0-4); Hematocrit 34.9 % (37.0-47.0); Hemoglobin 11.3 g/dl (12.0-16.0); Imm Gran Abs Auto 0.02 X10*3/uL (0.00-0.03); Imm Gran Pct Auto 0.3 % (0.0-0.4); Lymphocytes Absolute Auto 2.2 X10*3/uL (1.2-4.9); Lymphocytes Percent Auto 29.2 % (20-40); Mean Corpuscular HGB Conc 32.4 g/dl (31.0-35.0); Mean Corpuscular Hemoglobin 30.2 pg (27.0-33.0); Mean Corpuscular Volume 93.3 fL (80.0-98.0); Mean Platelet Volume 9.4 fL (9.4-12.3); Monocytes Absolute Auto 0.5 X10*3/uL (0.1-1.2); Monocytes Percent Auto 6.4 % (2-11); Neutrophils Absolute Auto 4.6 x10*3/uL (2.0-8.3); Neutrophils Percent Auto 59.6 % (45-73); Platelet Count 258 X10*3/uL (160-400); Red Blood Count 3.74 X10*6/uL (4.20-5.50); Red Cell Distribution Width 12.8 % (11.0-16.0); White Blood Count 7.6 X10*3/uL (4.8-10.8)
[2023-08-07 21:34] LABS: Anion Gap 12 (12-20); Blood Urea Nitrogen 16 mg/dL (9-16); Calcium 9.2 mg/dL (8.4-10.2); Carbon Dioxide 26 mmol/L (22-29); Chloride 108 mmol/L (96-108); Creatinine Clr Calc Pharmacy 91.5; Estimated Glomerular Filt Rate > 60; Glucose Random 122 mg/dL (60-115); Sodium 142 mmol/L (135-145)
[2023-08-07 21:55] LABS: IDNOW Serial# 08D9AD1C; Strep A Nucleic Acid Negative (Negative)
[2023-08-07 21:57] LABS: Influenza A PCR NEGATIVE (Negative); Influenza B PCR NEGATIVE (Negative); Resp Syncy Virus RNA Qual PCR NEGATIVE (Negative); SARS COV2 PCR INHOUSE NEGATIVE (Negative)
[2023-08-07 22:25] VITALS: BP 133/81; PULSE 66; RESP 16; O2SAT 97
--- NOTE | 2023-08-07 22:40 | ED_ITS ---
HPI - URI/Sore Throat General Chief Complaint: Upper Respiratory Symptoms Stated Complaint: Cough, chest pain, achy body Time Seen by Provider: 08/07/23 22:37 Source: patient Mode of arrival: ambulatory Limitations: no limitations History of Present Illness HPI Narrative: Patient with no significant past lung issues been sick for last 3 weeks with cough mostly dry especially the nighttime no fever no chills no other family member sick occasionally she has mucopurulent phlegm Related Data Previous Rx's Medication Instructions Recorded cyclobenzaprine 10 mg tablet 10 mg PO BEDTIME PRN muscle 12/29/20 spasm/leg cramps 30 days #30 tabs acetaminophen 500 mg tablet 1,000 mg (2 x 500 mg) PO Q6H PRN 10/14/21 fever #30 tabs ibuprofen 800 mg tablet 800 mg PO Q8H #30 tabs 10/14/21 metaxalone 800 mg tablet 800 mg PO TID PRN muscle pain 10 05/05/22 days #30 tabs cholecalciferol (vitamin D3) 50 50 mcg PO DAILY 90 days #90 caps 05/18/23 mcg (2,000 unit) capsule albuterol sulfate 90 mcg/actuation 2 puff inhalation Q4-6H PRN 08/07/23 aerosol inhaler (ProAir HFA) shortness of breath or wheezing #8.5 grams benzonatate 200 mg capsule 200 mg PO TID PRN cough #30 caps 08/07/23 prednisone 20 mg tablet 40 mg (2 x 20 mg) PO DAILY #10 tabs 08/07/23 Allergies Allergy/AdvReac Type Severity Reaction Status Date / Time Iodinated Contrast Media Allergy Unknown HIVES Verified 07/24/23 08:08 [IV CONTRAST] diphenhydramine AdvReac Unknown SHAKING Verified 07/24/23 08:08 [From BENADRYL] Benadryl Allergy Unknown chest pains Uncoded 07/24/23 07:58 IV contrast dye Allergy Unknown facial rash Uncoded 07/24/23 07:58 Latex Allergy Unknown rash Uncoded 07/24/23 07:58 Review of Systems 2 Review of Systems: Yes all other systems are reviewed and are negative PMFSH Past Medical History Medical History Vitamin D deficiency Obesity (BMI 30-39.9) Nocturnal leg cramps Surgical History History of tubal ligation Previous section Family History Family History Mother No problems noted. 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 Oriented X3. No acute distress. ENT: Pharynx normal. Oral Mucosa moist Neck: Normal inspection. Neck supple. CVS: Normal heart rate and rhythm. Pulses normal. Respiratory: No respiratory distress. Equal air entry bilateral, prolonged expiration with dry cough Abdomen: Soft and nontender. Bowel sounds are present, no mass palpable, no CVA tenderness Skin: Skin warm and dry. Normal skin color. Normal skin turgor. Extremities: No lower extremity edema. No calf tenderness Neuro: Oriented X 3. Medications Administered Discontinued Medications Generic Name Dose Route Start Last Admin Trade Name Freq PRN Reason Stop Dose Admin Albuterol Sulfate 2 puff 08/07/23 23:57 08/08/23 00:23 Albuterol Sulfate 90 Mcg 8 Gm Inhaler INHALE 08/07/23 23:58 2 puff ONCE ONE Administration Albuterol Sulfate 2.5 mg/ 0 mg 08/07/23 23:09 08/07/23 23:28 Albuterol/Ipratropium 3 ml INHALE 08/07/23 23:10 5 dose ONCE ONE Administration Dexamethasone 10 mg 08/07/23 23:09 08/07/23 23:35 Dexamethasone 2 Mg Tablet PO 08/07/23 23:10 10 mg ONCE ONE Administration Guaifenesin/Codeine Phosphate 10 ml 08/07/23 23:09 08/07/23 23:34 Guaifen/Codeine Sf 200/20/10ml 10 Ml Liquid PO 08/07/23 23:10 10 ml ONCE ONE Administration Medical Decision Making Medical Decision Making [facility] Narrative: Patient has viral bronchitis discharge patient with inhaler ,prednisone and cough drops Lab Data [facility] Lab Attestation statement: I reviewed the patient's lab results. 08/07/23 21:18 08/07/23 21:18 Labs: Lab Results 08/07/23 Range/Units 21:18 WBC 7.6 (4.8-10.8) X10*3/uL RBC 3.74 L (4.20-5.50) X10*6/uL Hgb 11.3 L (12.0-16.0) g/dl Hct 34.9 L (37.0-47.0) % MCV 93.3 (80.0-98.0) fL MCH 30.2 (27.0-33.0) pg MCHC 32.4 (31.0-35.0) g/dl RDW 12.8 (11.0-16.0) % Plt Count 258 (160-400) X10*3/uL MPV 9.4 (9.4-12.3) fL Immature Gran % (Auto) 0.3 (0.0-0.4) % Neut % (Auto) 59.6 (45-73) % Lymph % (Auto) 29.2 (20-40) % Hudson % (Auto) 6.4 (2-11) % Eos % (Auto) 4.2 H (0-4) % Baso % (Auto) 0.3 (0-2) % Lymph # (Auto) 2.2 (1.2-4.9) X10*3/uL Hudson # (Auto) 0.5 (0.1-1.2) X10*3/uL Eos # (Auto) 0.3 (0.0-0.4) X10*3/uL Baso # (Auto) 0.0 (0.0-0.2) X10*3/uL Abs Immat Gran (auto) 0.02 (0.00-0.03) X10*3/uL Absolute Neuts (auto) 4.6 (2.0-8.3) x10*3/uL Absolute Nucleated RBC 0.000 (0.0-0.012) X10*3/uL Nucleated RBC % (auto) 0.0 (0.0-0.2) /100WBC Sodium 142 (135-145) mmol/L Potassium 4.0 (3.3-5.1) mmol/L Chloride 108 (96-108) mmol/L Carbon Dioxide 26 (22-29) mmol/L Anion Gap 12 (12-20) BUN 16 (9-16) mg/dL Creatinine 0.85 (0.5-1.4) mg/dL Estim Creat Clear Calc 91.5 Estimated GFR > 60 Random Glucose 122 H (60-115) mg/dL Calcium 9.2 (8.4-10.2) mg/dL Influenza Type A (PCR) NEGATIVE (Negative) Influenza Type B (PCR) NEGATIVE (Negative) RSV RNA Qual (PCR) NEGATIVE (Negative) SARS-CoV-2 RNA (RT-PCR) NEGATIVE (Negative) S. pyogenes GrpA LUZ ELENA Negative (Negative) Discharge Plan Discharge Clinical Impression: Acute viral bronchitis Patient Disposition: Home, Self-Care Instructions: Acute Bronchitis (ED) Additional Instructions: Drink plenty of fluids Use cough drops, prednisone inhaler as prescribed Use humidified air Follow with PCP if not better Prescriptions: New benzonatate 200 mg capsule 200 mg PO TID PRN (Reason: cough) Qty: 30 0RF prednisone 20 mg tablet 40 mg PO DAILY Qty: 10 0RF albuterol sulfate [ProAir HFA] 90 mcg/actuation HFA aerosol inhaler 2 puff inhalation Q4-6H PRN (Reason: shortness of breath or wheezing) Qty: 8.5 0RF No Action cyclobenzaprine 10 mg tablet 10 mg PO BEDTIME PRN (Reason: muscle spasm/leg cramps) 30 Days Qty: 30 3RF metaxalone 800 mg tablet 800 mg PO TID PRN (Reason: muscle pain) 10 Days Qty: 30 1RF Rx Instructions: May cause drowsiness ibuprofen 800 mg tablet 800 mg PO Q8H Qty: 30 0RF acetaminophen 500 mg tablet 1,000 mg PO Q6H PRN (Reason: fever) Qty: 30 0RF cholecalciferol (vitamin D3) 50 mcg (2,000 unit) capsule 50 mcg PO DAILY 90 Days Qty: 90 3RF Interventions: ED Discharge Assessment Last Done: 08/08/23 00:27 Discharge Date/Time: 08/08/23 00:28
[2023-08-07] MEDS: Albuterol Sulfate 2.5 MG, Albuterol/Iprat 2.5/0.5MG 3 ML 3 ML INHALE (23:28)
[2023-08-07 23:29] VITALS: PULSE 90; RESP 16; O2SAT 98
[2023-08-07] MEDS: guaiFEN/Codeine SF 200/20/10ML 10 ML LIQUID PO (23:34)
[2023-08-07] MEDS: dexAMETHasone 2 MG TABLET 10 MG PO (23:35)
[2023-08-07 23:37] VITALS: O2SAT 99
[2023-08-08 00:20] VITALS: BP 127/64; PULSE 72; RESP 25; TEMP 36.9; O2SAT 100
[2023-08-08] MEDS: Albuterol Sulfate 90 MCG 8 GM INHALER 2 PUFF INHALE (00:23)
== END 2023-08-08 00:28 | disposition home or self-care (01) ==
PROVIDERS: Emergency Provider Internal Medicine; PCP Internal Medicine
DX: J20.8 Acute bronchitis due to other specified organisms (principal); Z20.822 Contact with and (suspected) exposure to COVID-19; Z20.828 Contact with and (suspected) exposure to other viral communicable diseases
CPT/HCPCS: 0241U; 80048; 85025; 87651; 93005; 94640; 99284; 99285; J8540

== ENCOUNTER → 2023-08-07 21:07 | Outpatient (BNV) | payer BC, SELFPAY | PROVIDERS: Emergency Provider Internal Medicine; PCP Internal Medicine; Visit Provider Internal Medicine | DX: R07.89 Other chest pain (principal) | CPT/HCPCS: 93010 ==

== ENCOUNTER 2024-01-27 22:27 | Emergency (ER) | payer BC, SELFPAY ==
[2024-01-27 22:31] VITALS: BP 147/70; PULSE 63; RESP 17; TEMP 36.6; O2SAT 100; BMI 34.3
[2024-01-27 23:03] LABS: MANUAL DIFF FLAG NO
[2024-01-27 23:04] LABS: Basophils Percent Auto 0.3 % (0-2); Eosinophils Absolute Auto 0.3 X10*3/uL (0.0-0.4); Eosinophils Percent Auto 2.5 % (0-4); Hematocrit 38.5 % (37.0-47.0); Hemoglobin 12.8 g/dl (12.0-16.0); Imm Gran Abs Auto 0.02 X10*3/uL (0.00-0.03); Imm Gran Pct Auto 0.2 % (0.0-0.4); Lymphocytes Absolute Auto 2.8 X10*3/uL (1.2-4.9); Lymphocytes Percent Auto 27.2 % (20-40); Mean Corpuscular HGB Conc 33.2 g/dl (31.0-35.0); Mean Corpuscular Hemoglobin 30.9 pg (27.0-33.0); Mean Platelet Volume 9.4 fL (9.4-12.3); Monocytes Absolute Auto 0.6 X10*3/uL (0.1-1.2); Monocytes Percent Auto 5.5 % (2-11); Neutrophils Absolute Auto 6.6 x10*3/uL (2.0-8.3); Neutrophils Percent Auto 64.3 % (45-73); Platelet Count 306 X10*3/uL (160-400); Red Blood Count 4.14 X10*6/uL (4.20-5.50); Red Cell Distribution Width 12.6 % (11.0-16.0); White Blood Count 10.2 X10*3/uL (4.8-10.8)
[2024-01-27 23:06] LABS: Appearance Urine Clear; Color Urine Yellow; Glucose Urine UA Negative (Negative); Leukocyte Esterase Urine Negative (Negative); Nitrite Urine Negative (Negative); Specific Gravity - Urine 1.025 (1.005-1.025); UMIC TRIGGER UACC YES; Urine Blood Small (1+) (Negative); Urine Ketones Negative (Negative); Urine Protein Negative (Neg-Trace)
[2024-01-27 23:11] LABS: Bacteria Urine None Seen (None Seen); Hyaline Casts Urine 0-2 /LPF (0-2); Squamous Epithelial Cell Urine 0-2 /HPF (0-2); WBC Urine 0-5 /HPF (0-5)
[2024-01-27 23:20] LABS: Alanine Aminotransferase 14 U/L (0-31); Albumin Level 4.5 g/dL (3.5-5.0); Alkaline Phosphatase 84 U/L (39-117); Anion Gap 19 (12-20); Aspartate Amino Transferase 19 U/L (5-31); Bilirubin Total 0.4 mg/dL (0.0-1.0); Blood Urea Nitrogen 16 mg/dL (9-16); Calcium 9.5 mg/dL (8.4-10.2); Carbon Dioxide 25 mmol/L (22-29); Chloride 103 mmol/L (96-108); Creatinine Clr Calc Pharmacy 96.9; Estimated Glomerular Filt Rate > 60; Glucose Random 100 mg/dL (60-115); Lipase 28 U/L (8-78); Sodium 143 mmol/L (135-145)
[2024-01-28] MEDS: Lidocaine HCl Viscous 2 % 15 ML SOLUTION MUCOUS MEM (00:26)
[2024-01-28] MEDS: Ondansetron ODT 4 MG TAB.RAPDIS TRANSLINGU (00:26)
[2024-01-28] MEDS: Magnesium Hydrox/Alum Hydrox 30 ML ORAL.SUSP PO (00:26)
--- NOTE | 2024-01-28 00:47 | ED_ITS ---
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 Patient reports that she has had upper abdominal pain for about 2 months on and off. Her symptoms are worse after eating. She denies any nausea or vomiting. She denies any fevers or chills. Today her symptoms have been present for 2 hours after eating hot dogs Patient denies any history abdominal surgeries. No other complaints or concerns at this time Related Data Previous Rx's ?Medication ?Instructions ?Recorded cyclobenzaprine 10 mg tablet 10 mg PO BEDTIME PRN muscle 12/29/20 spasm/leg cramps 30 days #30 tabs acetaminophen 500 mg tablet 1,000 mg (2 x 500 mg) PO Q6H PRN 10/14/21 fever #30 tabs ibuprofen 800 mg tablet 800 mg PO Q8H #30 tabs 10/14/21 metaxalone 800 mg tablet 800 mg PO TID PRN muscle pain 10 05/05/22 days #30 tabs cholecalciferol (vitamin D3) 50 50 mcg PO DAILY 90 days #90 caps 05/18/23 mcg (2,000 unit) capsule albuterol sulfate 90 mcg/actuation 2 puff inhalation Q4-6H PRN 08/07/23 aerosol inhaler (ProAir HFA) shortness of breath or wheezing #8.5 grams benzonatate 200 mg capsule 200 mg PO TID PRN cough #30 caps 08/07/23 prednisone 20 mg tablet 40 mg (2 x 20 mg) PO DAILY #10 tabs 08/07/23 calcium carbonate 1,000 1 tab PO Q4-6H PRN indigestion #20 01/28/24 mg-simethicone 60 mg chewable tabs tablet (Maalox Advanced) omeprazole 20 mg capsule,delayed 20 mg PO DAILY #14 caps 01/28/24 release Allergies Allergy/AdvReac Type Severity Reaction Status Date / Time Iodinated Contrast Media Allergy Unknown HIVES Verified 01/27/24 22:35 [IV CONTRAST] diphenhydramine AdvReac Unknown SHAKING Verified 06/15/24 22:35 [From BENADRYL] Benadryl Allergy Unknown chest pains Uncoded 01/27/24 22:35 IV contrast dye Allergy Unknown facial rash Uncoded 01/27/24 22:35 Latex Allergy Unknown rash Uncoded 01/27/24 22:35 Review of Systems 2 Constitutional: Constitutional: Denies body ache(s), Denies chills and Denies fever(s) Cardiovascular: Cardiovascular: Denies chest pain and Denies dyspnea Respiratory: Respiratory: Denies cough and Denies dyspnea Gastrointestinal: Gastrointestinal: Reports abdominal pain, Denies hematochezia, Denies nausea and Denies vomiting Genitourinary: Genitourinary: Denies dysuria Musculoskeletal: Musculoskeletal: Denies back pain Integumentary/Breasts: Skin/Breast: Denies rash PMFSH Past Medical History Medical History Vitamin D deficiency Obesity (BMI 30-39.9) Nocturnal leg cramps Surgical History History of tubal ligation Previous section Family History Family History Mother No problems noted. 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 Cognitive needs: No Hearing needs: No Vision needs: No Physical Exam ED Vital Signs: Vital Signs - 24 hr 01/27/24 22:31 Temperature 97.9 F Pulse Rate 63 Respiratory Rate 17 Blood Pressure 147/70 H Pulse Oximetry 100 Oxygen Delivery Method Room Air BMI result Body Mass Index 34.3 Const General: healthy appearing, comfortable, no acute distress, alert and awake Nutritional Appearance: well nourished Orientation/consciousness: patient oriented x3 HENMT Head: Yes normocephalic and Yes atraumatic Eyes Eyelids: Yes eyelids normal Conjunctivae: conjunctivae normal Sclerae: sclerae normal Corneas: corneas normal Pupils: Equal, round and reactive pupils present EOM: EOMs intact bilaterally Neck Neck: Yes full ROM Resp Effort & Inspection: normal respiratory effort, able to speak in complete sentences and not labored Cardio Rate: regular rate Rhythm: regular rhythm GI Inspection: No distended Palpation (GI): Soft to palpation, not firm, Tenderness to palpation present (GI) in the epigastrum; not in the RLQ, not in the RUQ, not at McBurney's point and Pinzon's sign negative, no guarding and not rigid Auscultation: normoactive bowel sounds Skin General skin exam: elasticity normal Neuro General: patient oriented x3 Cranial nerves: Yes Equal, round and reactive pupils present and Yes Bilaterally intact EOM present Cognition (Neuro): normal cognition Extrem Other: Moving all extremities well without any obvious deformities Medications Administered Discontinued Medications Generic Name Dose Route Start Last Admin Trade Name Freq PRN Reason Stop Dose Admin Al Hydroxide/Mg Hydroxide 30 ml 01/28/24 00:19 01/28/24 00:26 Magnesium Hydrox/Alum Hydrox 30 Ml Oral.Susp PO 01/28/24 00:20 30 ml ONCE ONE Administration Lidocaine HCl 15 ml 01/28/24 00:19 01/28/24 00:26 Lidocaine Hcl Viscous 2 % 15 Ml Solution MUCOUS MEM 01/28/24 00:20 15 ml ONCE ONE Administration Ondansetron HCl 4 mg 01/28/24 00:19 01/28/24 00:26 Ondansetron Odt 4 Mg Tab.Rapdis TRANSLINGU 01/28/24 00:20 4 mg ONCE ONE Administration Medical Decision Making Medical Decision Making [facility] Narrative: 43-year-old female presents for evaluation of burning abdominal pain after eating. She is currently experiencing some symptoms. Her labs are reassuring, no leukocytosis, left shift, no LFT abnormalities, no electrolyte abnormalities. History exam is most consistent with gastritis versus GERD. She has no right upper quadrant tenderness to suggest biliary colic/cholecystitis. Will defer emergent imaging at this time. Patient treated with a GI cocktail and can be referred to GI for upper endoscopy Differential Diagnosis Differential Diagnoses: The differential diagnosis associated with the presentation includes Abdominal pain Gastroenteritis Gastritis GERD Biliary colic Pancreatitis Lab Data [facility] Lab Attestation statement: I reviewed the patient's lab results. Please see medical decision making above. In short, no significant lab abnormalities 01/27/24 22:58 01/27/24 22:58 Labs: Lab Results 01/27/24 Range/Units 22:58 WBC 10.2 (4.8-10.8) X10*3/uL RBC 4.14 L (4.20-5.50) X10*6/uL Hgb 12.8 (12.0-16.0) g/dl Hct 38.5 (37.0-47.0) % MCV 93.0 (80.0-98.0) fL MCH 30.9 (27.0-33.0) pg MCHC 33.2 (31.0-35.0) g/dl RDW 12.6 (11.0-16.0) % Plt Count 306 (160-400) X10*3/uL MPV 9.4 (9.4-12.3) fL Immature Gran % (Auto) 0.2 (0.0-0.4) % Neut % (Auto) 64.3 (45-73) % Lymph % (Auto) 27.2 (20-40) % Leslie % (Auto) 5.5 (2-11) % Eos % (Auto) 2.5 (0-4) % Baso % (Auto) 0.3 (0-2) % Lymph # (Auto) 2.8 (1.2-4.9) X10*3/uL Leslie # (Auto) 0.6 (0.1-1.2) X10*3/uL Eos # (Auto) 0.3 (0.0-0.4) X10*3/uL Baso # (Auto) 0.0 (0.0-0.2) X10*3/uL Abs Immat Gran (auto) 0.02 (0.00-0.03) X10*3/uL Absolute Neuts (auto) 6.6 (2.0-8.3) x10*3/uL Absolute Nucleated RBC 0.000 (0.0-0.012) X10*3/uL Nucleated RBC % (auto) 0.0 (0.0-0.2) /100WBC Sodium 143 (135-145) mmol/L Potassium 4.0 (3.3-5.1) mmol/L Chloride 103 (96-108) mmol/L Carbon Dioxide 25 (22-29) mmol/L Anion Gap 19 (12-20) BUN 16 (9-16) mg/dL Creatinine 0.77 (0.5-1.4) mg/dL Estim Creat Clear Calc 96.9 Estimated GFR > 60 Random Glucose 100 (60-115) mg/dL Calcium 9.5 (8.4-10.2) mg/dL Total Bilirubin 0.4 (0.0-1.0) mg/dL AST 19 (5-31) U/L ALT 14 (0-31) U/L Alkaline Phosphatase 84 (39-117) U/L Total Protein 8.0 (6.5-8.0) g/dL Albumin 4.5 (3.5-5.0) g/dL Lipase 28 (8-78) U/L Urine Color Yellow Urine Appearance Clear Urine pH 6.0 (5.0-9.0) Ur Specific [place] 1.025 (1.005-1.025) Urine Protein Negative (Neg-Trace) mg/dL Urine Glucose (UA) Negative (Negative) mg/dL Urine Ketones Negative (Negative) mg/dL Urine Blood Small (1+) H (Negative) Urine Nitrite Negative (Negative) Ur Leukocyte Esterase Negative (Negative) Urine RBC 6-10 H (0-2) /HPF Urine WBC 0-5 (0-5) /HPF Ur Squamous Epith Cells 0-2 (0-2) /HPF Urine Bacteria None Seen (None Seen) Hyaline Casts 0-2 (0-2) /LPF Discharge Plan Discharge Clinical Impression: Abdominal pain Patient Disposition: Home, Self-Care Instructions: Gastroesophageal Reflux Disease (ED) Additional Instructions: Your workup in the ER today was reassuring. This includes all of your blood work. Your symptoms are most likely related to heartburn/GERD. Take omeprazole daily for the next 2 weeks You may use Maalox as needed for breakthrough abdominal pain when eating Follow-up with GI at the number provided Prescriptions: New Maalox Advanced 1,000-60 mg tablet,chewable 1 tab PO Q4-6H PRN (Reason: indigestion) Qty: 20 0RF omeprazole 20 mg capsule,delayed release(DR/EC) 20 mg PO DAILY Qty: 14 0RF No Action benzonatate 200 mg capsule 200 mg PO TID PRN (Reason: cough) Qty: 30 0RF prednisone 20 mg tablet 40 mg PO DAILY Qty: 10 0RF albuterol sulfate [ProAir HFA] 90 mcg/actuation HFA aerosol inhaler 2 puff inhalation Q4-6H PRN (Reason: shortness of breath or wheezing) Qty: 8.5 0RF cyclobenzaprine 10 mg tablet 10 mg PO BEDTIME PRN (Reason: muscle spasm/leg cramps) 30 Days Qty: 30 3RF metaxalone 800 mg tablet 800 mg PO TID PRN (Reason: muscle pain) 10 Days Qty: 30 1RF Rx Instructions: May cause drowsiness ibuprofen 800 mg tablet 800 mg PO Q8H Qty: 30 0RF acetaminophen 500 mg tablet 1,000 mg PO Q6H PRN (Reason: fever) Qty: 30 0RF cholecalciferol (vitamin D3) 50 mcg (2,000 unit) capsule 50 mcg PO DAILY 90 Days Qty: 90 3RF Print Language: [place]
[2024-01-28 01:19] VITALS: BP 147/70; PULSE 63; RESP 17; TEMP 36.6; O2SAT 100
== END 2024-01-28 01:20 | disposition home or self-care (01) ==
PROVIDERS: Emergency Provider Internal Medicine; PCP Internal Medicine
DX: R10.10 Upper abdominal pain, unspecified (principal)
CPT/HCPCS: 36415; 80053; 81001; 83690; 85025; 99282; 99283

== ENCOUNTER 2024-01-31 14:39 | Outpatient (AMB) | payer BC, SELFPAY ==
--- NOTE | 2024-01-31 14:42 | MHC.PC.OV ---
Vital Signs 01/31/24 14:43 Height 5 ft 3 in Weight 193 lb BMI 34.2 BP 100/68 Blood Pressure Location Lt brachial Position Sitting Pulse 68 Pulse Source Pulse Oximeter Pulse Oximetry (%) 99 Oxygen Delivery Method Room Air Intake Visit Reasons: [facility] 01/27 abdominal pain Intake Note: Patient is here for hospital discharge follow up. Patient was discharged from [facility] on 01/28/2024. 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 Allergies Iodinated Contrast Media [IV CONTRAST] Allergy (Unknown, Verified 01/31/24 15:19) HIVES diphenhydramine [From BENADRYL] Adverse Reaction (Unknown, Verified 01/31/24 15:19) SHAKING Benadryl Allergy (Unknown, Uncoded 01/31/24 15:19) chest pains IV contrast dye Allergy (Unknown, Uncoded 01/31/24 15:19) facial rash Latex Allergy (Unknown, Uncoded 01/31/24 15:19) rash Medication List - Last Reconciled 01/31/24 by Jonas Lebron MD acetaminophen 1,000 mg (2 x 500 mg) PO Q6H PRN albuterol sulfate 90 mcg/actuation (ProAir HFA) 2 puffs inhalation Q4-6H PRN calcium carbonate-simethicone 1,000-60 mg (Maalox Advanced) 1 tab PO Q4-6H PRN cholecalciferol (vitamin D3) 50 mcg PO DAILY 90 days cyclobenzaprine 10 mg PO BEDTIME PRN 30 days ibuprofen 800 mg PO Q8H metaxalone 800 mg PO TID PRN 10 days NS omeprazole 20 mg PO DAILY Tobacco use date assessed: 01/31/24 Dental Screening Dental Screen Date: 01/31/24 [facility] 01/27 abdominal pain HPI Details Patient comes in today for her HDF follow up visit States that she has been experiencing increasing epigastric pain for the past 2 weeks Notes that her abdominal pain feels worse when she eats and seems to be worse also around noon time She went to the ER a few days ago on 01/27/2024 for further evaluation of her worsening abdominal pain Had some labs done at the ER and she was subsequently advised that her labs came out okay She was sent home with some Rx for Omeprazole and Maalox and instructed to follow up with her PCP Patient states that she has not experienced any significant relief with her current Rx Relates (+) nausea at times when her abdominal pain gets worse but denies any vomiting She denies any fever, headaches or dizziness Denies any chest pains, no SOB No change in bowel habits noted and she has not noticed any blood in her stool lately [facility] Medical History Vitamin D deficiency Obesity (BMI 30-39.9) Nocturnal leg cramps Surgical History History of tubal ligation Previous section Family History Mother No problems noted. 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 1. Little interest or pleasure in doing things: not at all 2. Feeling down, depressed, or hopeless: not at all 3. Trouble falling or staying asleep, or sleeping too much: not at all 4. Feeling tired or having little energy: not at all 5. Poor appetite or overeating: not at all 6. Feeling bad about yourself - or that you are a failure or have let yourself or your family down: not at all 7. Trouble concentrating on things, such as reading the newspaper or watching television: not at all 8. Moving or speaking so slowly that other people could have noticed. Or the opposite - being so fidgety or restless that you have been moving around a lot more than usual: not at all 9. Thoughts that you would be better off or of hurting yourself in some way: not at all Total score: 0 Depression Screening Interpretation: Negative Depression Screening Done: Yes 18016 - PHQ-9 Billing: Yes Source: Developed by Thais SahaW. Benito, Rock Walter and colleagues, with an educational nguyen from [employer]. Thrive Questionnaire Date Thrive assessed: 01/31/24 I am a: Patient What is your living situation today?: I have a steady place to live Within the past 12 months, did the food you bought not last and you didn't have the money to get more?: Never true Within the past 12 months, did you worry whether your food would run out before you got money to buy more?: Never true Do you have trouble paying for medicines?: No Do you have trouble getting transportation to medical appointments?: No Do you have trouble paying your heating and electricity bill?: No Do you have trouble taking care of your child, family member or friend?: No Do you have trouble with day-to-day activities such as bathing, preparing meals, shopping, managing finances, etc.?: No Are you currently unemployed and looking for a job?: No Are you interested in more education?: No Please select the resources that you would like help with: None Currently or been in a relationship where the following occur: no concerns reported THRIVE Score: 0 AUDIT C Alcohol Use Questionnaire (AUDIT-C) 1. How often do you have a drink containing alcohol?: Never 3. How often do you have six or more drinks on one occasion?: Never Total Score: 0 Score Reviewed/Action Taken: Yes TANJA-7 AMB Questionnaire TANJA-7 Date TANJA - 7 assessed: 01/31/24 Source: Developed by Drs. Bud Crystal, Thais Oliver, Rock Walter and colleagues, with an educational nguyen from [employer]. Review of Systems Const Denies chills, Denies fatigue, Denies fever(s) and Denies headache(s) ENT Denies dysphagia, Denies dizziness, Denies otalgia, Denies headache(s), Denies neck pain, Denies odynophagia and Denies sore throat Card Denies chest pain, Denies irregular heart rhythm, Denies palpitations and Denies dyspnea Resp Denies cough, Denies dyspnea and Denies wheezing GI Reports abdominal pain (epigastric - see HPI for details), Denies hematochezia, Denies constipation, Denies dysphagia, Denies heartburn, Denies diarrhea, Reports nausea (at times, mostly when epigastric pain gets worse), Denies odynophagia and Denies vomiting Denies nocturia, Denies dysuria and Denies urinary urgency Musc Denies back pain, Denies arthralgias and Denies neck pain Skin/Breast Denies rash Neuro Denies dizziness, Denies headache(s) and Denies paresthesias Endo Denies fatigue and Denies palpitations Doni/Lymph Denies easy bruising Aller/Immun Denies wheezing Physical exam (Primary Care) Vital Signs: Last Vital Signs Pulse 68 01/31/24 14:43 BP 100/68 01/31/24 14:43 Pulse Ox 99 01/31/24 14:43 Oxygen Delivery Method Room Air 01/31/24 14:43 BMI result Body Mass Index 34.2 Tobacco/Smoking Status: Tobacco use Status Tobacco use date assessed 01/31/24 01/31/24 14:44 Patient Tobacco Use Status Never used Tobacco 01/31/24 14:44 e-Cigarette/Vaping Use Never Used 01/31/24 14:44 PHQ-9: PHQ-9 Score PHQ-9: Total score 0 01/31/24 15:20 Depression Screening Interpretation: Negative Thrive Assessment: Date of Thrive Assessment Date Thrive assessed 01/31/24 01/31/24 14:44 Currently or been in a relationship where the following occur: no concerns reported Const General: no acute distress and alert HENMT Ears: TM's normal bilaterally and EAC's normal Throat: Yes posterior oropharynx normal and Yes tonsils normal (no TP congestion) Neck Neck: Yes no lymphadenopathy and Yes supple Thyroid: Thyroid normal Resp Auscultation: clear to auscultation bilaterally, no rales and no wheezes Cardio Rate: regular rate Rhythm: regular rhythm Heart sounds: no murmurs GI Palpation (GI): Soft to palpation, Tenderness to palpation present (GI) in the epigastrum, no guarding, not rigid and No Rebound tenderness present Auscultation: normal bowel sounds General: Yes no CVA tenderness Back/Spine/Pelvis Back: no CVA tenderness Thoracic/Lumbar Spine: No lumbar spinal tenderness Skin Rashes: no rashes Extrem General: Yes no clubbing, cyanosis or edema Results Reviewed Results Reviewed: Laboratory Tests 01/27/24 22:58 WBC 10.2 Hgb 12.8 Hct 38.5 Plt Count 306 Sodium 143 Potassium 4.0 Creatinine 0.77 Estimated GFR > 60 Random Glucose 100 Calcium 9.5 AST 19 ALT 14 Ur Specific [place] 1.025 Urine Protein Negative Urine Glucose (UA) Negative Urine Blood Small (1+) H Urine Nitrite Negative Ur Leukocyte Esterase Negative Assessment and Plan Assessment & Plan (1) Epigastric pain: Code(s): R10.13 - Epigastric pain Plan: Discussed with patient that her current symptoms are suggestive of gastritis Discussed dietary restrictions similar to those for GERD to avoid aggravating her symptoms for now She was prescribed Omeprazole and Maalox from the ER a few days ago and feels that these have not helped her much Will switch her over to Pantoprazole 40 mg QD and start her as well on Famotidine 40 mg BID x 10 days Will send her for an upper GI series MICHELLE for further evaluation Plan To return as scheduled in May 2024 for her annual physical examination Orders: Orders [place] upper GI series 01/31/24 R10.13 - Epigastric pain Medications: New pantoprazole 40 mg PO DAILY 30 days 30 tabs 2RF famotidine 40 mg PO BID 10 days 20 tabs 0RF Coding Level of Care Code Est Pt Level 3 (89823) Diagnoses Epigastric pain R10.13
[2024-01-31 14:43] VITALS: BP 100/68; PULSE 68; O2SAT 99; BMI 34.2
== END 2024-01-31 15:30 | disposition home or self-care (01) ==
PROVIDERS: PCP Internal Medicine; Visit Provider Internal Medicine
DX: R10.13 Epigastric pain (principal)
CPT/HCPCS: 99213

== ENCOUNTER 2024-03-27 22:16 | Emergency (ER) | payer BC, SELFPAY ==
[2024-03-27 22:27] VITALS: BP 170/94; PULSE 98; RESP 26; TEMP 36.8; O2SAT 100; BMI 33.4
--- NOTE | 2024-03-27 22:34 | ECG_ITS ---
Test Reason : CHEST PAIN Blood Pressure : / mmHG Vent. Rate : 079 BPM Atrial Rate : 079 BPM P-R Int : 128 ms QRS Dur : 072 ms QT Int : 372 ms P-R-T Axes : 009 030 028 degrees QTc Int : 426 ms Normal sinus rhythm Nonspecific ST and T wave abnormality Abnormal ECG When compared with ECG of 07-AUG-2023 21:07, Nonspecific T wave abnormality, worse in Inferior leads Nonspecific T wave abnormality now evident in Anterolateral leads Referred By: Generic ED Physician Electronically Signed By:LEANNA LONG
[2024-03-27 22:49] LABS: MANUAL DIFF FLAG NO
[2024-03-27 22:50] LABS: Basophils Percent Auto 0.2 % (0-2); Eosinophils Absolute Auto 0.3 X10*3/uL (0.0-0.4); Eosinophils Percent Auto 3.5 % (0-4); Hematocrit 36.6 % (37.0-47.0); Hemoglobin 12.2 g/dl (12.0-16.0); Imm Gran Abs Auto 0.03 X10*3/uL (0.00-0.03); Imm Gran Pct Auto 0.3 % (0.0-0.4); Lymphocytes Absolute Auto 2.8 X10*3/uL (1.2-4.9); Lymphocytes Percent Auto 28.9 % (20-40); Mean Corpuscular HGB Conc 33.3 g/dl (31.0-35.0); Mean Corpuscular Volume 92.9 fL (80.0-98.0); Mean Platelet Volume 9.4 fL (9.4-12.3); Monocytes Absolute Auto 0.5 X10*3/uL (0.1-1.2); Monocytes Percent Auto 5.4 % (2-11); Neutrophils Absolute Auto 5.9 x10*3/uL (2.0-8.3); Neutrophils Percent Auto 61.7 % (45-73); Platelet Count 309 X10*3/uL (160-400); Red Blood Count 3.94 X10*6/uL (4.20-5.50); Red Cell Distribution Width 12.4 % (11.0-16.0); White Blood Count 9.6 X10*3/uL (4.8-10.8)
--- NOTE | 2024-03-27 22:59 | PC.NURSE ---
pt from home, a&ox4, respirations even and unlabored. reports having almond allergy and then having a cup of coffee with almond milk. pt reports she became short of breath and had an itchy throat, around 830pm pt self administered an epi pen. pt now reports she is having 8/10 mid sternal chest pain that feels stabbing. pt denies n/v/d.
[2024-03-27 23:03] LABS: Anion Gap 12 (12-20); Blood Urea Nitrogen 10 mg/dL (9-16); Carbon Dioxide 26 mmol/L (22-29); Chloride 106 mmol/L (96-108); Creatinine Clr Calc Pharmacy 82.7; Estimated Glomerular Filt Rate > 60; Glucose Random 196 mg/dL (60-115); Potassium 3.2 mmol/L (3.3-5.1); Sodium 141 mmol/L (135-145)
[2024-03-27 23:13] LABS: Troponin-I High Sensitivity < 2.7 ng/L (<3.5-17.0)
--- NOTE | 2024-03-27 23:41 | ED_ITS ---
HPI - Allergic Reaction General Chief complaint: Allergic Reaction Stated complaint: Chest pain s/p allergic reaction + epi Time Seen by Provider: 03/27/24 23:05 Source: patient Mode of arrival: ambulatory Limitations: no limitations History of Present Illness ED Provider: lizandro MACHUCA narrative: Patient's allergic to multiple agents not to almonds she had before had almond milk in the coffee earlier today and then again tonight noticed tingling of the lips with throat closing and chest tightness and shortness a breath patient took her epi pen allergic to Benadryl took Zyrtec earlier today was feeling much better on arrival no rash no itching no syncope no nausea no vomiting Related Data Previous Rx's ?Medication ?Instructions ?Recorded cyclobenzaprine 10 mg tablet 10 mg PO BEDTIME PRN muscle 12/29/20 spasm/leg cramps 30 days #30 tabs acetaminophen 500 mg tablet 1,000 mg (2 x 500 mg) PO Q6H PRN 10/14/21 fever #30 tabs ibuprofen 800 mg tablet 800 mg PO Q8H #30 tabs 10/14/21 metaxalone 800 mg tablet 800 mg PO TID PRN muscle pain 10 05/05/22 days #30 tabs cholecalciferol (vitamin D3) 50 50 mcg PO DAILY 90 days #90 caps 05/18/23 mcg (2,000 unit) capsule albuterol sulfate 90 mcg/actuation 2 puff inhalation Q4-6H PRN 08/07/23 aerosol inhaler (ProAir HFA) shortness of breath or wheezing #8.5 grams calcium carbonate 1,000 1 tab PO Q4-6H PRN indigestion #20 01/28/24 mg-simethicone 60 mg chewable tabs tablet (Maalox Advanced) omeprazole 20 mg capsule,delayed 20 mg PO DAILY #14 caps 01/28/24 release famotidine 40 mg tablet 40 mg PO BID 10 days #20 tabs 01/31/24 pantoprazole 40 mg tablet,delayed 40 mg PO DAILY 30 days #30 tabs 01/31/24 release Allergies Allergy/AdvReac Type Severity Reaction Status Date / Time Iodinated Contrast Media Allergy Unknown HIVES Verified 03/27/24 22:29 [IV CONTRAST] peanut Allergy Anaphylaxis Verified 03/27/24 22:29 shellfish derived Allergy Unknown Verified 03/27/24 22:29 diphenhydramine AdvReac Unknown SHAKING Verified 03/27/24 22:29 [From BENADRYL] Benadryl Allergy Unknown chest pains Uncoded 03/27/24 22:29 IV contrast dye Allergy Unknown facial rash Uncoded 03/27/24 22:29 Latex Allergy Unknown rash Uncoded 03/27/24 22:29 Review of Systems 2 Review of Systems: Yes all other systems are reviewed and are negative [facility] Past Medical History Medical History Vitamin D deficiency Obesity (BMI 30-39.9) Nocturnal leg cramps Surgical History History of tubal ligation Previous section Family History Family History Mother No problems noted. 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 Oriented X3. No acute distress. Eyes: PERRLA, No Nystagmus ENT: Pharynx normal. Oral Mucosa moist no stridor lips normal uvula normal tongue normal Neck: Normal inspection. Neck supple. CVS: Normal heart rate and rhythm. Pulses normal. Respiratory: No respiratory distress. Equal air entry bilateral, no wheezing/rales/rhonchi Abdomen: Soft and nontender. Bowel sounds are present, Skin: Skin warm and dry. Normal skin color. Normal skin turgor. Extremities: No lower extremity edema. No calf tenderness Neuro: Oriented X 3. No motor deficit. Medications Administered Discontinued Medications Generic Name Dose Route Start Last Admin Trade Name Nikoq PRN Reason Stop Dose Admin Dexamethasone Sodium Phosphate 10 mg 03/27/24 23:42 03/28/24 00:09 Dexamethasone Sod Phosphate 10 Mg/Ml Vial IVPUSH 03/27/24 23:43 10 mg ONCE ONE Administration Famotidine 20 mg 03/27/24 23:42 03/28/24 00:09 Famotidine/Pf 20 Mg/2 Ml Vial IVPUSH 03/27/24 23:43 20 mg ONCE ONE Administration Medical Decision Making Medical Decision Making [facility] Narrative: Patient with anaphylactic reaction almond milk responded to EpiPen which she took off her on prior to arrival was given Pepcid and Decadron in the ER stayed stable felt much better at time of discharge Lab Data 03/27/24 22:43 03/27/24 22:43 Labs: Lab Results 03/27/24 Range/Units 22:43 WBC 9.6 (4.8-10.8) X10*3/uL RBC 3.94 L (4.20-5.50) X10*6/uL Hgb 12.2 (12.0-16.0) g/dl Hct 36.6 L (37.0-47.0) % MCV 92.9 (80.0-98.0) fL MCH 31.0 (27.0-33.0) pg MCHC 33.3 (31.0-35.0) g/dl RDW 12.4 (11.0-16.0) % Plt Count 309 (160-400) X10*3/uL MPV 9.4 (9.4-12.3) fL Immature Gran % (Auto) 0.3 (0.0-0.4) % Neut % (Auto) 61.7 (45-73) % Lymph % (Auto) 28.9 (20-40) % Dale % (Auto) 5.4 (2-11) % Eos % (Auto) 3.5 (0-4) % Baso % (Auto) 0.2 (0-2) % Lymph # (Auto) 2.8 (1.2-4.9) X10*3/uL Dale # (Auto) 0.5 (0.1-1.2) X10*3/uL Eos # (Auto) 0.3 (0.0-0.4) X10*3/uL Baso # (Auto) 0.0 (0.0-0.2) X10*3/uL Abs Immat Gran (auto) 0.03 (0.00-0.03) X10*3/uL Absolute Neuts (auto) 5.9 (2.0-8.3) x10*3/uL Absolute Nucleated RBC 0.000 (0.0-0.012) X10*3/uL Nucleated RBC % (auto) 0.0 (0.0-0.2) /100WBC Sodium 141 (135-145) mmol/L Potassium 3.2 L (3.3-5.1) mmol/L Chloride 106 (96-108) mmol/L Carbon Dioxide 26 (22-29) mmol/L Anion Gap 12 (12-20) BUN 10 (9-16) mg/dL Creatinine 0.89 (0.5-1.4) mg/dL Estim Creat Clear Calc 82.7 Estimated GFR > 60 Random Glucose 196 H (60-115) mg/dL Calcium 9.0 (8.4-10.2) mg/dL Troponin I High Sens < 2.7 (<3.5-17.0) ng/L Discharge Plan Discharge Clinical Impression: Allergic reaction Patient Disposition: Home, Self-Care Instructions: General Allergic Reaction (ED) Additional Instructions: Take Zyrtec daily Take Epi as needed for allergic reaction as advised Prescriptions: No Action Maalox Advanced 1,000-60 mg tablet,chewable 1 tab PO Q4-6H PRN (Reason: indigestion) Qty: 20 0RF omeprazole 20 mg capsule,delayed release(DR/EC) 20 mg PO DAILY Qty: 14 0RF albuterol sulfate [ProAir HFA] 90 mcg/actuation HFA aerosol inhaler 2 puff inhalation Q4-6H PRN (Reason: shortness of breath or wheezing) Qty: 8.5 0RF cyclobenzaprine 10 mg tablet 10 mg PO BEDTIME PRN (Reason: muscle spasm/leg cramps) 30 Days Qty: 30 3RF metaxalone 800 mg tablet 800 mg PO TID PRN (Reason: muscle pain) 10 Days Qty: 30 1RF Rx Instructions: May cause drowsiness ibuprofen 800 mg tablet 800 mg PO Q8H Qty: 30 0RF acetaminophen 500 mg tablet 1,000 mg PO Q6H PRN (Reason: fever) Qty: 30 0RF cholecalciferol (vitamin D3) 50 mcg (2,000 unit) capsule 50 mcg PO DAILY 90 Days Qty: 90 3RF pantoprazole 40 mg tablet,delayed release (DR/EC) 40 mg PO DAILY 30 Days Qty: 30 2RF famotidine 40 mg tablet 40 mg PO BID 10 Days Qty: 20 0RF Interventions: ED Discharge Assessment Last Done: 03/28/24 01:07 Discharge Date/Time: 03/28/24 01:07 Print Language: [place]
[2024-03-28] MEDS: Famotidine/PF 20 MG/2 ML VIAL IVPUSH (00:09)
[2024-03-28] MEDS: dexAMETHasone sod phosphate 10 MG/ML VIAL IVPUSH (00:09)
[2024-03-28 01:06] VITALS: BP 121/68; PULSE 56; RESP 18; TEMP 36.6; O2SAT 100
[2024-03-28 01:07] VITALS: BP 121/68; PULSE 56; RESP 18; TEMP 36.6; O2SAT 100
== END 2024-03-28 01:07 | disposition home or self-care (01) ==
PROVIDERS: Emergency Provider Internal Medicine; PCP Internal Medicine
DX: R07.89 Other chest pain (principal); T78.1XXA Other adverse food reactions, not elsewhere classified, initial encounter; T78.49XA Other allergy, initial encounter; X58.XXXA Exposure to other specified factors, initial encounter; Z79.899 Other long term (current) drug therapy
CPT/HCPCS: 36415; 80048; 84484; 85025; 93005; 96374; 96375; 99284; 99285; J1100

== ENCOUNTER 2024-04-08 09:50 | Outpatient (REF) | payer BC, SELFPAY ==
--- NOTE | ~2024-04-08 | FL_ITS ---
EXAMINATION: XR FLUOROSCOPY UPPER GI WITH AIR CLINICAL INFORMATION: Epigastric pain COMPARISON: None TECHNIQUE: Fluoroscopic air contrast upper GI examination was performed utilizing standard techniques with thin and thick barium and effervescent granules. Numerous spot images were obtained. FINDINGS: Dual and single contrast images of the esophagus demonstrate normal caliber, contour. There is a granular appearance of the distal esophageal mucosa, suggestive of esophagitis. No strictures, ulcerations, or masses are present. Esophageal peristalsis is mildly disorganized. A small type I hiatal hernia is present. No significant gastroesophageal reflux was seen during the course of the examination and on reflux views. Dual contrast and single contrast images of the stomach demonstrated a normal contour. The areae gastrica have a thickened appearance, which suggests gastritis. There are are a few small filling defects with contrast pooling just below the GE junction which represent superficial ulcers. No masses are present. Contrast freely passed into the gastric antrum and duodenal bulb without delay. Single and air-contrast images of the duodenal bulb demonstrate no abnormality. The duodenal sweep has a normal appearance, course, and mucosal fold appearance. The imaged proximal jejunum has a normal fold pattern and caliber. FLUOROSCOPY TIME: 2 minutes 29 seconds Number of Spot Images: 5 Number of Cine: 12 DOSE AREA PRODUCT: 1731 uGy-m2 (microgray-meter squared) FL/FL upper GI series IMPRESSION: 1. Mildly disordered esophageal peristalsis. 2. Small type I hiatus hernia. 3. Thickened appearance of the areae gastrica. In addition, there are a few small filling defects with contrast pooling just below the GE junction. These findings are suggestive of erosive gastritis. Recommend correlation of EGD. This procedure was performed by Joe Guillermo PA-C, and supervised by Dr. Saul Electronically signed by: Yousuf Saul MD 04/09/2024 04:41 PM EDT
== END 2024-04-08 09:51 | disposition home or self-care (01) ==
LOC: HO.XRAY 09:50
PROVIDERS: PCP Internal Medicine; Visit Provider Internal Medicine
DX: R10.13 Epigastric pain (principal)
CPT/HCPCS: 74240

== ENCOUNTER → 2024-04-08 09:52 | Outpatient (BNV) | payer BC, SELFPAY | PROVIDERS: PCP Internal Medicine; Visit Provider Radiology Diagnostic Radiology | DX: R10.13 Epigastric pain (principal) | CPT/HCPCS: 74246 ==

== ENCOUNTER 2024-05-20 10:11 | Outpatient (AMB) | payer BC, SELFPAY ==
[2024-05-20 10:13] VITALS: BP 102/78; PULSE 64; O2SAT 98; BMI 32.3
--- NOTE | 2024-05-20 10:13 | MHC.PC.OV ---
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: No Accompanied by: Self / Same As Patient Allergies Iodinated Contrast Media [IV CONTRAST] Allergy (Unknown, Verified 05/20/24 11:05) HIVES peanut Allergy (Verified 05/20/24 11:05) Anaphylaxis shellfish derived Allergy (Verified 05/20/24 11:05) Unknown diphenhydramine [From BENADRYL] Adverse Reaction (Unknown, Verified 05/20/24 11:05) SHAKING Benadryl Allergy (Unknown, Uncoded 05/20/24 11:05) chest pains IV contrast dye Allergy (Unknown, Uncoded 05/20/24 11:05) facial rash Latex Allergy (Unknown, Uncoded 05/20/24 11:05) rash Medication List - Last Reconciled 05/20/24 by Jonas Lebron MD acetaminophen 1,000 mg (2 x 500 mg) PO Q6H PRN albuterol sulfate 90 mcg/actuation (ProAir HFA) 2 puffs inhalation Q4-6H PRN cholecalciferol (vitamin D3) 50 mcg PO DAILY 90 days famotidine 40 mg PO BID 10 days pantoprazole 40 mg PO DAILY Tobacco use date assessed: 05/20/24 Dental Screening Dental Screen Date: 05/20/24 Did you have a dental visit in the last 12 months?: Yes Did you have a dental problem in the last 6 months where you did not have access to dental care?: No Was dental information given to patient?: Patient has dentist HPI pe HPI Details Patient comes in today for her annual physical examination States that she continues to experience recurrent epigastric pain that feels worse when she eats something and also at night States that she has woken up a few times in the middle of the night due to increased epigastric pain She is currently still taking Pantoprazole 40 mg QD and has been referred to GI for further evaluation and management as her recent upper GI series done a few weeks ago revealed (+) findings suggestive of erosive gastritis but states that she has not yet heard back from GI about an appointment Relates (+) nausea at times, when her abdominal pain is increased but she denies any vomiting Denies any headaches or dizziness Denies any chest pains, no increased SOB No change in bowel habits noted and states that she has not noticed any blood in her stool lately She denies any acute urinary symptoms She is up-to-date with her annual gynecology exam and pap smear and has her follow up appointment scheduled in July 2024 She last had her mammogram done on 05/26/2023 and will be due for repeat in a week or so She is also due to start colon cancer screening and this will be added on to her current GI referral She would also like to get her flu shot today [facility] Medical History (Updated 05/20/24 @ 11:48 by Jonas Lebron MD) Erosive gastritis Vitamin D deficiency Obesity (BMI 30-39.9) Nocturnal leg cramps Surgical History History of tubal ligation Previous section Family History Mother No problems noted. 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 1. Little interest or pleasure in doing things: not at all 2. Feeling down, depressed, or hopeless: not at all 3. Trouble falling or staying asleep, or sleeping too much: not at all 4. Feeling tired or having little energy: not at all 5. Poor appetite or overeating: not at all 6. Feeling bad about yourself - or that you are a failure or have let yourself or your family down: not at all 7. Trouble concentrating on things, such as reading the newspaper or watching television: not at all 8. Moving or speaking so slowly that other people could have noticed. Or the opposite - being so fidgety or restless that you have been moving around a lot more than usual: not at all 9. Thoughts that you would be better off or of hurting yourself in some way: not at all Total score: 0 Depression Screening Interpretation: Negative Depression Screening Done: Yes 64104 - PHQ-9 Billing: Yes Source: Developed by Drs. Bud Crystal, Thais Oliver, Rock Walter and colleagues, with an educational nguyen from [employer]. Thrive Questionnaire Date Thrive assessed: 05/20/24 I am a: Patient What is your living situation today?: I have a steady place to live Within the past 12 months, did the food you bought not last and you didn't have the money to get more?: Never true Within the past 12 months, did you worry whether your food would run out before you got money to buy more?: Never true Do you have trouble paying for medicines?: No Do you have trouble getting transportation to medical appointments?: No Do you have trouble paying your heating and electricity bill?: No Do you have trouble taking care of your child, family member or friend?: No Do you have trouble with day-to-day activities such as bathing, preparing meals, shopping, managing finances, etc.?: No Are you currently unemployed and looking for a job?: No Are you interested in more education?: No Please select the resources that you would like help with: None Currently or been in a relationship where the following occur: No concerns reported THRIVE Score: 0 AUDIT C Alcohol Use Questionnaire (AUDIT-C) 1. How often do you have a drink containing alcohol?: Never 3. How often do you have six or more drinks on one occasion?: Never Total Score: 0 Score Reviewed/Action Taken: Yes TANJA-7 AMB Questionnaire TANJA-7 Date TANJA - 7 assessed: 05/20/24 Feeling nervous, anxious, or on edge: 0 = Not at all Not being able to stop or control worryin = Not at all Worrying too much about different things: 0 = Not at all Trouble relaxin = Not at all Being so restless that it is hard to sit still: 0 = Not at all Becoming easily annoyed or irritable: 0 = Not at all Feeling afraid as if something awful might happen: 0 = Not at all Total TANJA-7 score (0-4 normal; 5-9 mild; 10-14 moderate; 15-21 severe): 0 Source: Developed by Drs. Bud Crystal, Thais Oliver, Rock Walter and colleagues, with an educational nguyen from [employer]. Review of Systems Const Denies chills, Denies fatigue, Denies fever(s), Denies headache(s) and Denies malaise Eyes Denies blurry vision, Denies change in vision, Denies irritation and Denies itchy eyes ENT Denies dysphagia, Denies dizziness, Denies otalgia, Denies headache(s), Denies nasal congestion, Denies neck pain, Denies odynophagia, Denies sinus pain and Denies sore throat Card Denies chest pain, Denies rapid heart rate, Denies irregular heart rhythm, Denies palpitations and Denies dyspnea Resp Denies chest congestion, Denies cough, Denies dyspnea and Denies wheezing GI Reports abdominal pain (epigastric - see HPI), Denies bloating, Denies hematochezia, Denies constipation, Denies dysphagia, Denies heartburn, Denies diarrhea, Reports nausea (on and off, often when epigastric pain increases), Denies odynophagia and Denies vomiting Denies hematuria, Denies urinary frequency, Denies dysuria, Denies urinary incontinence and Denies urinary urgency Musc Denies back pain, Denies arthralgias, Denies joint swelling, Denies muscle weakness and Denies neck pain Skin/Breast Denies breast pain, Denies breast mass, Denies change in pigmentation, Denies lesions, Denies rash and Denies unusual bruising Neuro Denies dizziness, Denies headache(s) and Denies paresthesias Psych Denies anxiety and Denies depression Endo Denies fatigue and Denies palpitations Doni/Lymph Denies easy bruising Aller/Immun Denies itchy eyes and Denies wheezing Physical exam (Primary Care) Vital Signs: Last Vital Signs Pulse 64 05/20/24 10:13 BP 102/78 05/20/24 10:13 Pulse Ox 98 05/20/24 10:13 Oxygen Delivery Method Room Air 05/20/24 10:13 BMI result Body Mass Index 32.3 Tobacco/Smoking Status: Tobacco use Status Tobacco use date assessed 05/20/24 05/20/24 10:15 Patient Tobacco Use Status Never used Tobacco 05/20/24 10:15 e-Cigarette/Vaping Use Never Used 05/20/24 10:15 PHQ-9: PHQ-9 Score PHQ-9: Total score 0 05/20/24 10:15 Depression Screening Interpretation: Negative Thrive Assessment: Date of Thrive Assessment Date Thrive assessed 05/20/24 05/20/24 10:21 Currently or been in a relationship where the following occur: No concerns reported Const General: no acute distress, alert and awake Orientation/consciousness: patient oriented x3 HENMT Head: Yes normocephalic and Yes atraumatic Ears: external ears normal, TM's normal bilaterally and EAC's normal General nose exam: No nasal discharge present Face and sinus: Yes normal facial exam and Yes sinuses nontender Teeth and gingiva: dentition normal Throat: Yes posterior oropharynx normal and Yes tonsils normal (no TP congestion) Eyes Eyelids: Yes eyelids normal Conjunctivae: conjunctivae normal Pupils: Equal, round and reactive pupils present EOM: EOMs intact bilaterally Neck Neck: Yes no lymphadenopathy and Yes supple Thyroid: Thyroid normal Resp Auscultation: clear to auscultation bilaterally, no rales and no wheezes Cardio Rate: regular rate Rhythm: regular rhythm Heart sounds: no murmurs GI Palpation (GI): Soft to palpation, Tenderness to palpation present (GI) in the epigastrum, no guarding, not rigid, No hepatosplenomegaly present and No Rebound tenderness present Auscultation: normal bowel sounds General: Yes no CVA tenderness Back/Spine/Pelvis Back: no CVA tenderness Thoracic/Lumbar Spine: thoracic and lumbar spine normal to inspection Skin Lesions: no lesions Rashes: no rashes Neuro General: patient oriented x3, moves all extremities, no focal motor deficits and CN's II-XI intact bilaterally Cranial nerves: Yes Equal, round and reactive pupils present Cognition (Neuro): normal cognition Gait exam (Neuro): Normal gait present Extrem General: Yes no clubbing, cyanosis or edema Office Procedures Flu Questionnaire Does the patient have a severe egg allergy?: No Does the patient have severe life threatening allergies?: No Does the patient have a fever or illness today?: No Has the patient ever had Guillain-[place] Syndrome?: No Has the patient ever had any past reaction to a flu shot?: No Immunizations Fluarix Triv [id number] (PF) 45 mcg (15 mcg x 3)/0.5 mL IM syringe Performing Provider: Jonas Lebron MD [facility] [place] [facility] Administered by: DENIS Tsai on 05/20/24 10:33 Dose Route Admin Location Dispensed Lot Number Expiration Date NDC Coat Maker 0.5 mL IM Left Deltoid 0.5 mL [id number] 02/10/25 [id number] [employer] VIS Given Date VIS Provided VIS Publication Date 05/20/24 Single Vaccine 21 Eligibility Eligibility Date Funding Source Not [facility] Eligible 05/20/24 Private Coding Level of Care Code Est Pt Prev Care 40-64y(22473) Diagnoses Annual physical exam Z00.00 Erosive gastritis K29.60 Impaired fasting glucose R73.01 Vitamin D deficiency E55.9 Obesity (BMI 30-39.9) E66.9 Assessment & Plan Assessment & Plan (1) Annual physical exam: Code(s): Z00.00 - Encounter for general adult medical examination without abnormal findings Category: Medical Plan: Check labs She will be due for her yearly mammogram in a week's time and she is [facility] MICHELLE She is scheduled for her yearly gynecology exam and pap smear in July 2024 She is due to start her screening colonoscopy and this will be added on to her current GI referral that was placed a few weeks ago for her epigastric pain (2) Erosive gastritis: Code(s): K29.60 - Other gastritis without bleeding Category: Medical Plan: Her recent upper GI series done a few weeks ago revealed (+) findings suggestive or erosive gastritis She has been referred to GI a few weeks ago for further evaluation and consideration for EGD but she has not yet heard back from GI to schedule her appointment - will have office staff here alert them to get this scheduled MICHELLE Reinforced dietary restrictions to minimize aggravating her symptoms for now - these include coffee, tea, sodas and spicy foods Continue Pantoprazole 40 mg QD Will start her again on Famotidine 40 mg BID and also add Carafate 1 gm TID with meals in the meantime Have reminded patient to completely avoid all NSAIDs; can take OTC Tylenol PRN for pain in the meantime Will also check her for H. pylori and if positive, this will need to be treated (3) Impaired fasting glucose: Code(s): R73.01 - Impaired fasting glucose Category: Medical Plan: Her random glucose was at 196 mg/dl when last checked in March 2024 Will check her FBS and HgbA1c for further evaluation (4) Vitamin D deficiency: Code(s): E55.9 - Vitamin D deficiency, unspecified Category: Medical Plan: Continue Vitamin D3 2000 units QD (5) Obesity (BMI 30-39.9): Code(s): E66.9 - Obesity, unspecified Category: Medical Plan: Reinforced diet/exercise as tolerated/lose weight Plan As requested, flu vaccine given today Follow up in 4 months Orders: Orders Complete Blood Count Auto Diff Today D64.9 - Anemia, unspecified, Z00.00 - Encounter for general adult medical examination without abnormal findings TSH reflex Free T4 Today E78.00 - Pure hypercholesterolemia, unspecified, Z00.00 - Encounter for general adult medical examination without abnormal findings Hemoglobin A1c Today R73.01 - Impaired fasting glucose, Z00.00 - Encounter for general adult medical examination without abnormal findings Influenza [id number] Immunization Today Z23 - Encounter for immunization Comprehensive Sebastian. Panel Fast Today E78.00 - Pure hypercholesterolemia, unspecified, Z00.00 - Encounter for general adult medical examination without abnormal findings Lipid Panel Today E78.00 - Pure hypercholesterolemia, unspecified, Z00.00 - Encounter for general adult medical examination without abnormal findings UA CC w/rflx Micro + Cult Today R30.0 - Dysuria, Z00.00 - Encounter for general adult medical examination without abnormal findings Vitamin D 25-OH Total Today E55.9 - Vitamin D deficiency, unspecified, Z00.00 - Encounter for general adult medical examination without abnormal findings H Pylori Breath Test Today K29.60 - Other gastritis without bleeding, R10.13 - Epigastric pain Medications: New sucralfate Take TID with meals 1 g PO TID 30 days 90 tabs 2RF K29.60 - Other gastritis without bleeding Changed From pantoprazole 40 mg PO DAILY 90 tabs 0RF K29.60 - Other gastritis without bleeding To pantoprazole 40 mg PO DAILY 90 days 90 tabs 1RF K29.60 - Other gastritis without bleeding From famotidine 40 mg PO BID 10 days 20 tabs 0RF K29.60 - Other gastritis without bleeding To famotidine 40 mg PO BID 30 days 60 tabs 2RF K29.60 - Other gastritis without bleeding
== END 2024-05-20 11:24 | disposition home or self-care (01) ==
PROVIDERS: PCP Internal Medicine; Visit Provider Internal Medicine
DX: Z00.00 Encounter for general adult medical examination without abnormal findings (principal); K29.60 Other gastritis without bleeding; Z68.32 Body mass index [BMI] 32.0-32.9, adult; E66.811 Obesity, class 1; R73.01 Impaired fasting glucose; E55.9 Vitamin D deficiency, unspecified; Z23 Encounter for immunization

== ENCOUNTER → 2024-05-20 10:11 | Outpatient (BNVA) | payer BC, SELFPAY | PROVIDERS: PCP Internal Medicine; Visit Provider Internal Medicine | DX: Z00.00 Encounter for general adult medical examination without abnormal findings (principal); K29.60 Other gastritis without bleeding; R73.01 Impaired fasting glucose; E55.9 Vitamin D deficiency, unspecified; E66.9 Obesity, unspecified; Z68.32 Body mass index [BMI] 32.0-32.9, adult; Z79.899 Other long term (current) drug therapy; Z23 Encounter for immunization | CPT/HCPCS: 90471; 90656; 96127 ==

== ENCOUNTER 2024-05-23 08:34 | Outpatient (REF) | payer BC, SELFPAY ==
[2024-05-23 08:51] LABS: MANUAL DIFF FLAG NO
[2024-05-23 09:14] LABS: Basophils Percent Auto 0.3 % (0-2); Eosinophils Absolute Auto 0.3 X10*3/uL (0.0-0.4); Eosinophils Percent Auto 5.1 % (0-4); Hematocrit 37.2 % (37.0-47.0); Hemoglobin 12.1 g/dl (12.0-16.0); Imm Gran Abs Auto 0.02 X10*3/uL (0.00-0.03); Imm Gran Pct Auto 0.3 % (0.0-0.4); Lymphocytes Absolute Auto 1.5 X10*3/uL (1.2-4.9); Lymphocytes Percent Auto 22.6 % (20-40); Mean Corpuscular HGB Conc 32.5 g/dl (31.0-35.0); Mean Corpuscular Hemoglobin 30.7 pg (27.0-33.0); Mean Corpuscular Volume 94.4 fL (80.0-98.0); Mean Platelet Volume 9.6 fL (9.4-12.3); Monocytes Absolute Auto 0.3 X10*3/uL (0.1-1.2); Monocytes Percent Auto 4.6 % (2-11); Neutrophils Absolute Auto 4.4 x10*3/uL (2.0-8.3); Neutrophils Percent Auto 67.1 % (45-73); Platelet Count 278 X10*3/uL (160-400); Red Blood Count 3.94 X10*6/uL (4.20-5.50); Red Cell Distribution Width 12.2 % (11.0-16.0); White Blood Count 6.5 X10*3/uL (4.8-10.8)
[2024-05-23 09:29] LABS: Estimated Average Glucose 111 mg/dL; Hemoglobin A1c % 5.5 % (<6.0); Total Hemoglobin (HGBA1C) 3126.0532 umol/L
[2024-05-23 09:33] LABS: Appearance Urine Clear; Color Urine Yellow; Glucose Urine UA Negative (Negative); Leukocyte Esterase Urine Negative (Negative); Nitrite Urine Negative (Negative); Specific Gravity - Urine >= 1.030 (1.005-1.025); Urine Blood Negative (Negative); Urine Ketones Trace mg/dL (Negative); Urine Protein Trace mg/dL (Neg-Trace)
[2024-05-23 09:56] LABS: Alanine Aminotransferase 17 U/L (0-31); Albumin Level 4.2 g/dL (3.5-5.0); Alkaline Phosphatase 75 U/L (39-117); Anion Gap 10 (12-20); Aspartate Amino Transferase 23 U/L (5-31); Bilirubin Total 0.3 mg/dL (0.0-1.0); Blood Urea Nitrogen 15 mg/dL (9-16); Calcium 9.4 mg/dL (8.4-10.2); Carbon Dioxide 27 mmol/L (22-29); Chloride 106 mmol/L (96-108); Cholesterol 167 mg/dL (<200); Estimated Glomerular Filt Rate > 60; Glucose Fasting 117 mg/dL (60-99); HDL Cholesterol 47 mg/dL (>40); LDL Cholesterol Calculated 108 mg/dL (<100); Potassium 4.3 mmol/L (3.3-5.1); Sodium 139 mmol/L (135-145); Total Protein 7.4 g/dL (6.5-8.0); Triglycerides 61 mg/dL (<150)
[2024-05-23 09:57] LABS: TSH reflex Free T4 1.06 uIU/mL (0.32-4.0); Vitamin D 25-OH Total 21.9 ng/mL (>30)
== END 2024-05-23 08:35 | disposition home or self-care (01) ==
LOC: HO.LAB 08:34
PROVIDERS: PCP Internal Medicine; Visit Provider Internal Medicine
DX: Z00.00 Encounter for general adult medical examination without abnormal findings (principal); D64.9 Anemia, unspecified; E78.00 Pure hypercholesterolemia, unspecified; R73.01 Impaired fasting glucose; E55.9 Vitamin D deficiency, unspecified; R30.0 Dysuria
CPT/HCPCS: 36415; 80053; 80061; 81003; 82306; 83036; 84443; 85025

== ENCOUNTER 2024-09-03 09:22 | Outpatient (AMB) | payer BC, SELFPAY ==
[2024-09-03 09:24] VITALS: BP 134/76; PULSE 56; O2SAT 100; BMI 32.4
--- NOTE | 2024-09-03 09:24 | A.OFFVIS_ITS ---
Vital Signs 09/03/24 09:24 Height 5 ft 3 in Weight 182 lb 15.739 oz BMI 32.4 BP 134/76 Blood Pressure Location Lt brachial Position Sitting Pulse 56 Pulse Source Pulse Oximeter Pulse Oximetry (%) 100 Oxygen Delivery Method Room Air Intake Visit Reasons: Epigastric pain / Colon Screening Intake Note: NEW PATIENT Reason; Symptomatic screening. Prior hx of colo/egd? N Concerns/Questions? Epigastric pain. Any consumption typically triggers pain. No reflux noted. Senior Clinical Project Manager Required: Yes Senior Clinical Project Manager Services: Senior Clinical Project Manager Present Senior Clinical Project Manager Name: [id number] Rosalind Information Interpreted: non-clinical & clinical Accompanied by: Spouse Allergies latex Allergy (Mild, Verified 09/03/24:) Rash Iodinated Contrast Media [IV CONTRAST] Allergy (Unknown, Verified 09/03/24) HIVES peanut Allergy (Verified 09/03/24) Anaphylaxis shellfish derived Allergy (Verified 09/03/24:) Unknown diphenhydramine [From BENADRYL] Adverse Reaction (Unknown, Verified 09/03/24) Chest Pain IV contrast dye Allergy (Unknown, Uncoded 09/03/24:) facial rash HPI HPI Epigastric pain / Colon Screening: Details: 43 year old? female with past medical history of epigastric pain is here today for pre colonoscopy screening.? Patient was sent to us by her PCP.? This is her first colonoscopy screening.? ? Patient reports epigastric pain postprandially. Now little better on PPI and H2 albert. Patient was placed on pantoprazole daily, famotidine twice a day and sucralfate 3 times today by her PCP. Patient had upper GI series back in March. Suspicion of erosive gastritis. Patient reports that she is only taking sucralfate once a day. Pantoprazole in the morning and famotidine twice a day. Symptoms still continue on and off depending on what she eats. Denies any dyspepsia, dysphagia or odynophagia. Patient denies any melena, hematochezia, unintentional weight loss or ribbon like stools. [facility] Medical History Erosive gastritis Vitamin D deficiency Obesity (BMI 30-39.9) Nocturnal leg cramps Surgical History History of tubal ligation Previous section Family History Mother No problems noted. 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 Cognitive needs: No Hearing needs: No Vision needs: No Review of Systems Const Denies weight gain and Denies weight loss ENT Reports no additional complaints, Denies dysphagia and Denies odynophagia Card Reports no additional complaints Resp Reports no additional complaints GI Reports abdominal pain (epigastric), Denies belching, Denies melena, Denies bloating, Denies change in bowel habits, Denies dysphagia, Denies excessive flatus, Denies dyspepsia, Denies heartburn, Denies diarrhea, Denies loose stools, Denies nausea, Denies odynophagia and Denies vomiting Reports no additional complaints Musc Reports no additional complaints Neuro Reports no additional complaints Psych Reports no additional complaints Endo Reports no additional complaints Physical Exam Vital Signs: Last Vital Signs Pulse 56 09/03/24 09:24 BP 134/76 09/03/24 09:24 Pulse Ox 100 09/03/24 09:24 Oxygen Delivery Method Room Air 09/03/24 09:24 BMI result Body Mass Index 32.4 Results Reviewed Results Reviewed: UPPER GI SERIES 04/08/2024 IMPRESSION: 1. Mildly disordered esophageal peristalsis. 2. Small type I hiatus hernia. 3. Thickened appearance of the areae gastrica. In addition, there are a few small filling defects with contrast pooling just below the GE junction. These findings are suggestive of erosive gastritis. Recommend correlation of EGD. Assessment & Plan Assessment & Plan (1) Colon cancer screening: Code(s): Z12.11 - Encounter for screening for malignant neoplasm of colon Category: Medical (2) Epigastric pain: Code(s): R10.13 - Epigastric pain Category: Medical (3) Erosive gastritis: Code(s): K29.60 - Other gastritis without bleeding Category: Medical (4) GERD (gastroesophageal reflux disease): Code(s): K21.9 - Gastro-esophageal reflux disease without esophagitis Plan Will check H pylori, transglutaminase, liver profile and lipase. Change PPI to Nexium. Famotidine at bedtime. Avoid dietary triggers and late night snacking. Staying upright for minimum 3 hours after meals discussed patient. Patient reports that bowels well without any issues. Patient will call us if she will continue to have symptoms. Return in 2 months to discuss going for colonoscopy and upper endoscopy. Message sent to surgical schedulers to book procedure. Will order prep next visit. Patient is agreeable to plan of care and verbalizes understanding of instructions. She was given the opportunity to ask questions and all questions answered. Thank you for allowing me to participate in her care Orders: Orders Lipase Today R10.9 - Unspecified abdominal pain Liver Panel Today R74.01 - Elevation of levels of liver transaminase levels H pylori Ag Stool Today K21.9 - Gastro-esophageal reflux disease without esophagitis Transglutaminase IgA Today R10.9 - Unspecified abdominal pain Medications: New esomeprazole magnesium (Nexium) 40 mg PO DAILY 30 caps 5RF K21.9 - Gastro- esophageal reflux disease without esophagitis Changed From famotidine 40 mg PO BID 30 days 60 tabs 2RF K29.60 - Other gastritis without bleeding To famotidine 40 mg PO BEDTIME 30 days 30 tabs 2RF K29.60 - Other gastritis without bleeding Discontinued 2 pantoprazole Discontinued Reason: Doctor's Order 40 mg PO DAILY 90 days 90 tabs 1RF K29.60 - Other gastritis without bleeding sucralfate Take TID with meals Discontinued Reason: Doctor's Order 1 g PO TID 30 days 90 tabs 2RF K29.60 - Other gastritis without bleeding Coding Level of Care Code New Pt Level 4 (37052) Diagnoses Colon cancer screening Z12.11 Epigastric pain R10.13 Erosive gastritis K29.60 GERD (gastroesophageal reflux disease) K21.9 Time Spent (min) 45 Comment 30 minutes spent with patient and additional 15 minutes spent reviewing her records
== END 2024-09-03 10:05 | disposition home or self-care (01) ==
PROVIDERS: PCP Internal Medicine; Visit Provider Nurse Practitioner Family
DX: K29.60 Other gastritis without bleeding (principal); K21.9 Gastro-esophageal reflux disease without esophagitis; Z12.11 Encounter for screening for malignant neoplasm of colon
CPT/HCPCS: 99204

== ENCOUNTER 2024-09-03 09:22 | Outpatient (REF) | payer BC, SELFPAY ==
[2024-09-03 12:40] LABS: Alanine Aminotransferase 13 U/L (0-31); Albumin Level 4.3 g/dL (3.5-5.0); Alkaline Phosphatase 87 U/L (39-117); Aspartate Amino Transferase 23 U/L (5-31); Bilirubin Direct 0.1 mg/dL (0.0-0.5); Bilirubin Total 0.4 mg/dL (0.0-1.0); Lipase 19 U/L (8-78); Total Protein 7.7 g/dL (6.5-8.0)
[2024-09-04 17:03] LABS: Transglutaminase IgA <1.0 U/mL
== END 2024-09-03 09:23 | disposition home or self-care (01) ==
LOC: HO.LAB 09:22
PROVIDERS: PCP Internal Medicine; Visit Provider Nurse Practitioner Family
DX: R74.01 Elevation of levels of liver transaminase levels (principal); R10.9 Unspecified abdominal pain
CPT/HCPCS: 36415; 80076; 83690; 86364

== ENCOUNTER 2024-09-06 07:00 | Outpatient (REF) | payer BC, SELFPAY | END 2024-09-06 07:01 | disposition home or self-care (01) | LOC: HO.LNP 07:00 | PROVIDERS: Internal Medicine; Visit Provider Nurse Practitioner Family | DX: K21.9 Gastro-esophageal reflux disease without esophagitis (principal) | CPT/HCPCS: 87338 ==

== ENCOUNTER 2024-09-20 09:47 | Outpatient (AMB) | payer BC, SELFPAY ==
--- NOTE | 2024-09-20 10:06 | MHC.PC.OV ---
Vital Signs 09/20/24 10:07 Height 5 ft 3 in Weight 182 lb 4 oz BMI 32.3 BP 120/72 Blood Pressure Location Lt brachial Position Sitting Pulse 62 Pulse Source Pulse Oximeter Pulse Oximetry (%) 97 Oxygen Delivery Method Room Air Intake Visit Reasons: 4[facility] f/u Rounding Machine Tender Required: No Accompanied by: Self / Same As Patient Allergies latex Allergy (Mild, Verified 09/20/24 10:40) Rash Iodinated Contrast Media [IV CONTRAST] Allergy (Unknown, Verified 09/20/24 10:40) HIVES peanut Allergy (Verified 09/20/24 10:40) Anaphylaxis shellfish derived Allergy (Verified 09/20/24 10:40) Unknown diphenhydramine [From BENADRYL] Adverse Reaction (Unknown, Verified 09/20/24 10:40) Chest Pain IV contrast dye Allergy (Unknown, Uncoded 09/20/24 10:40) facial rash Medication List - Last Reconciled 09/20/24 by Jonas Lebron MD acetaminophen 1,000 mg (2 x 500 mg) PO Q6H PRN albuterol sulfate 90 mcg/actuation (ProAir HFA) 2 puffs inhalation Q4-6H PRN cholecalciferol (vitamin D3) 50 mcg PO DAILY 90 days epinephrine IM DAILY esomeprazole magnesium (Nexium) 40 mg PO DAILY famotidine 40 mg PO BEDTIME Tobacco use date assessed: 09/20/24 Dental Screening Dental Screen Date: 09/20/24 Did you have a dental visit in the last 12 months?: Yes Did you have a dental problem in the last 6 months where you did not have access to dental care?: No Was dental information given to patient?: Patient has dentist HPI [facility] f/u HPI Details Patient comes in today for her follow up visit States that she feels okay She denies any headaches or dizziness Denies any chest pains, no SOB No nausea/vomiting but she still has on and off epigastric pain after eating but states that her GI symptoms have improved a lot on her current Rx No change in bowel habits noted She would like to know how she did on her labs done back in May 2024 She was seen by GI a couple of weeks ago and was sent for additional work ups and she will be seen in a couple of months for follow up, after which it will be determined when she should have EGD done Her PPI was changed to Esomeprazole and Carafate was discontinued PFSH Medical History Erosive gastritis Vitamin D deficiency Obesity (BMI 30-39.9) Nocturnal leg cramps Surgical History History of tubal ligation Previous section Family History Mother No problems noted. 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 1. Little interest or pleasure in doing things: not at all 2. Feeling down, depressed, or hopeless: not at all 3. Trouble falling or staying asleep, or sleeping too much: not at all 4. Feeling tired or having little energy: not at all 5. Poor appetite or overeating: not at all 6. Feeling bad about yourself - or that you are a failure or have let yourself or your family down: not at all 7. Trouble concentrating on things, such as reading the newspaper or watching television: not at all 8. Moving or speaking so slowly that other people could have noticed. Or the opposite - being so fidgety or restless that you have been moving around a lot more than usual: not at all 9. Thoughts that you would be better off or of hurting yourself in some way: not at all Total score: 0 Depression Screening Interpretation: Negative Depression Screening Done: Yes 52392 - PHQ-9 Billing: Yes Source: Developed by Drs. Bud Crystal, Thais Oliver, Rock Walter and colleagues, with an educational nguyen from [employer]. Thrive Questionnaire Date Thrive assessed: 09/20/24 I am a: Patient What is your living situation today?: I have a steady place to live Within the past 12 months, did the food you bought not last and you didn't have the money to get more?: Never true Within the past 12 months, did you worry whether your food would run out before you got money to buy more?: Never true Do you have trouble paying for medicines?: No Do you have trouble getting transportation to medical appointments?: No Do you have trouble paying your heating and electricity bill?: No Do you have trouble taking care of your child, family member or friend?: No Do you have trouble with day-to-day activities such as bathing, preparing meals, shopping, managing finances, etc.?: No Are you currently unemployed and looking for a job?: No Are you interested in more education?: No Please select the resources that you would like help with: None Currently or been in a relationship where the following occur: No concerns reported THRIVE Score: 0 AUDIT C Alcohol Use Questionnaire (AUDIT-C) 1. How often do you have a drink containing alcohol?: Never 3. How often do you have six or more drinks on one occasion?: Never Total Score: 0 Score Reviewed/Action Taken: Yes TANJA-7 AMB Questionnaire TANJA-7 Date TANJA - 7 assessed: 09/20/24 Feeling nervous, anxious, or on edge: 0 = Not at all Not being able to stop or control worryin = Not at all Worrying too much about different things: 0 = Not at all Trouble relaxin = Not at all Being so restless that it is hard to sit still: 0 = Not at all Becoming easily annoyed or irritable: 0 = Not at all Feeling afraid as if something awful might happen: 0 = Not at all Total TANJA-7 score (0-4 normal; 5-9 mild; 10-14 moderate; 15-21 severe): 0 Source: Developed by Drs. Bud Crystal, Thais Oliver, Rock Walter and colleagues, with an educational nguyen from [employer]. Review of Systems Const Denies chills, Denies fatigue, Denies fever(s) and Denies headache(s) ENT Denies dysphagia, Denies dizziness, Denies otalgia, Denies headache(s), Denies neck pain, Denies odynophagia and Denies sore throat Card Denies chest pain, Denies irregular heart rhythm, Denies palpitations and Denies dyspnea Resp Denies chest congestion, Denies cough and Denies dyspnea GI Reports abdominal pain (occasionally, over the epigastric area usually after she eats), Denies hematochezia, Denies constipation, Denies dysphagia, Denies heartburn, Denies diarrhea, Denies odynophagia and Denies vomiting Denies urinary frequency, Denies dysuria and Denies urinary urgency Musc Denies back pain, Denies arthralgias and Denies neck pain Skin/Breast Denies rash Neuro Denies dizziness, Denies headache(s) and Denies paresthesias Psych Denies anxiety and Denies depression Endo Denies fatigue and Denies palpitations Doni/Lymph Denies easy bruising Physical exam (Primary Care) Vital Signs: Last Vital Signs Pulse 62 09/20/24 10:07 BP 120/72 09/20/24 10:07 Pulse Ox 97 09/20/24 10:07 Oxygen Delivery Method Room Air 09/20/24 10:07 BMI result Body Mass Index 32.3 Tobacco/Smoking Status: Tobacco use Status Tobacco use date assessed 09/20/24 09/20/24 10:17 Patient Tobacco Use Status Never used Tobacco 09/20/24 10:17 e-Cigarette/Vaping Use Never Used 09/20/24 10:17 PHQ-9: PHQ-9 Score PHQ-9: Total score 0 09/20/24 10:17 Depression Screening Interpretation: Negative Thrive Assessment: Date of Thrive Assessment Date Thrive assessed 09/20/24 09/20/24 10:17 Currently or been in a relationship where the following occur: No concerns reported Const General: no acute distress and alert HENMT Ears: TM's normal bilaterally and EAC's normal Throat: Yes posterior oropharynx normal and Yes tonsils normal (no TP congestion) Neck Neck: Yes supple and No lymphadenopathy Thyroid: Thyroid normal Resp Auscultation: clear to auscultation bilaterally, no rales and no wheezes Cardio Rate: regular rate Rhythm: regular rhythm Heart sounds: no murmurs GI Palpation (GI): Soft to palpation and Tenderness to palpation present (GI) (minimally) in the epigastrum Auscultation: normal bowel sounds General: Yes no CVA tenderness Back/Spine/Pelvis Back: no CVA tenderness Thoracic/Lumbar Spine: No lumbar spinal tenderness Skin Rashes: no rashes Extrem General: Yes no clubbing, cyanosis or edema Results Reviewed Results Reviewed: Laboratory Tests 05/23/24 05/23/24 09/03/24 08:48 08:50 10:29 WBC 6.5 Hgb 12.1 Hct 37.2 Plt Count 278 Sodium 139 Potassium 4.3 D Creatinine 0.80 Estimated GFR > 60 Fasting Glucose 117 H Hemoglobin A1c % 5.5 Calcium 9.4 AST 23 ALT 13 Triglycerides 61 Cholesterol 167 LDL Cholesterol, Calc 108 H HDL Cholesterol 47 25-OH Vitamin D Total 21.9 L TSH 1.06 Ur Specific [place] >= 1.030 H Urine Protein Trace Urine Glucose (UA) Negative Urine Blood Negative Urine Nitrite Negative Ur Leukocyte Esterase Negative Coding Level of Care Code Est Pt Level 4 (15330) Diagnoses Erosive gastritis K29.60 Helicobacter pylori stool test positive A04.8 Impaired fasting glucose R73.01 Vitamin D deficiency E55.9 Obesity (BMI 30-39.9) E66.9 Additional Codes PHQ-9 - 01650 - PHQ-9 Billing: Yes ([id number]) Assessment & Plan Assessment & Plan (1) Erosive gastritis: Code(s): K29.60 - Other gastritis without bleeding Category: Medical Plan: Upper GI series done a few months ago revealed (+) findings suggestive or erosive gastritis Reinforced dietary restrictions to minimize aggravating her symptoms She has been referred to GI and she was seen about 2 to 3 weeks ago Continue Esomeprazole 40 mg QD - this was switched from Pantoprazole by GI a couple of weeks ago Continue Famotidine 40 mg Q HS; she was started on Carafate 1 gm TID with meals in the meantime back in May 2024 but this was also discontinued by GI recently Have reminded patient to completely avoid all NSAIDs; can take OTC Tylenol PRN for pain in the meantime Patient also tested positive for H. pylori a couple of weeks ago and she will be treated for this as well Follow up with GI as scheduled (2) Helicobacter pylori stool test positive: Code(s): A04.8 - Other specified bacterial intestinal infections Category: Medical Plan: Will go ahead and start her on Tx for H. pylori Will start her on Bismuth quadruple Tx that includes Bismuth subsalicylate 525 mg QID, Esomeprazole 40 mg BID, Doxycycline 100 mg QID and Metronidazole 500 mg QID x 14 days Follow up with GI as scheduled (3) Impaired fasting glucose: Code(s): R73.01 - Impaired fasting glucose Category: Medical Plan: Results of her labs done back in May 2024 reviewed and discussed with patient Her fasting blood glucose was slightly elevated at 117 mg/dl but her HgbA1c was normal at 5.5% Reinforced low calorie/low carb diet (4) Vitamin D deficiency: Code(s): E55.9 - Vitamin D deficiency, unspecified Category: Medical Plan: Continue Vitamin D3 2000 units QD - she is advised that her Vitamin D level was still low on her labs done in May 2024 (5) Obesity (BMI 30-39.9): Code(s): E66.9 - Obesity, unspecified Category: Medical Plan: Reinforced diet/exercise as tolerated/lose weight Plan Follow up in 4 months Medications: New bismuth subsalicylate do not exceed 8 doses in a 24 hour period 525 mg PO QID 14 days 56 tabs 0RF diarrhea esomeprazole magnesium 40 mg PO BID 14 days 28 caps 0RF doxycycline hyclate 100 mg PO BID 14 days 28 caps 0RF metronidazole 500 mg PO QID 14 days 56 tabs 0RF
[2024-09-20 10:07] VITALS: BP 120/72; PULSE 62; O2SAT 97; BMI 32.3
== END 2024-09-20 10:59 | disposition home or self-care (01) ==
PROVIDERS: PCP Internal Medicine; Visit Provider Internal Medicine
DX: K29.60 Other gastritis without bleeding (principal); A04.8 Other specified bacterial intestinal infections; E66.9 Obesity, unspecified; Z68.32 Body mass index [BMI] 32.0-32.9, adult; R73.01 Impaired fasting glucose; E55.9 Vitamin D deficiency, unspecified

== ENCOUNTER → 2024-09-20 09:47 | Outpatient (BNVA) | payer BC, SELFPAY | PROVIDERS: PCP Internal Medicine; Visit Provider Internal Medicine | DX: K29.60 Other gastritis without bleeding (principal); A04.8 Other specified bacterial intestinal infections; R73.01 Impaired fasting glucose; E55.9 Vitamin D deficiency, unspecified; E66.9 Obesity, unspecified; Z68.32 Body mass index [BMI] 32.0-32.9, adult; Z79.899 Other long term (current) drug therapy | CPT/HCPCS: 96127 ==

== ENCOUNTER 2024-09-22 09:07 | Emergency (ER) | payer BC, SELFPAY ==
[2024-09-22 09:27] VITALS: BP 120/75; PULSE 87; O2SAT 100
[2024-09-22 09:38] VITALS: BP 134/79; PULSE 72; RESP 18; TEMP 36.6; O2SAT 98; BMI 32.1
[2024-09-22 10:37] LABS: MANUAL DIFF FLAG NO
[2024-09-22 10:38] LABS: Basophils Percent Auto 0.3 % (0-2); Eosinophils Absolute Auto 0.1 X10*3/uL (0.0-0.4); Eosinophils Percent Auto 1.1 % (0-4); Hematocrit 38.2 % (37.0-47.0); Hemoglobin 12.4 g/dl (12.0-16.0); Imm Gran Abs Auto 0.02 X10*3/uL (0.00-0.03); Imm Gran Pct Auto 0.2 % (0.0-0.4); Lymphocytes Absolute Auto 0.9 X10*3/uL (1.2-4.9); Lymphocytes Percent Auto 9.3 % (20-40); Mean Corpuscular HGB Conc 32.5 g/dl (31.0-35.0); Mean Corpuscular Hemoglobin 29.8 pg (27.0-33.0); Mean Corpuscular Volume 91.8 fL (80.0-98.0); Mean Platelet Volume 9.6 fL (9.4-12.3); Monocytes Absolute Auto 0.4 X10*3/uL (0.1-1.2); Monocytes Percent Auto 4.5 % (2-11); Neutrophils Percent Auto 84.6 % (45-73); Platelet Count 282 X10*3/uL (160-400); Red Blood Count 4.16 X10*6/uL (4.20-5.50); White Blood Count 9.5 X10*3/uL (4.8-10.8)
[2024-09-22 10:47] VITALS: BP 116/68; PULSE 64; RESP 16; TEMP 36.9; O2SAT 99
[2024-09-22 10:53] LABS: Alanine Aminotransferase 12 U/L (0-31); Albumin Level 4.4 g/dL (3.5-5.0); Alkaline Phosphatase 83 U/L (39-117); Anion Gap 13 (12-20); Aspartate Amino Transferase 22 U/L (5-31); Bilirubin Total 0.6 mg/dL (0.0-1.0); Blood Urea Nitrogen 15 mg/dL (9-16); Calcium 9.4 mg/dL (8.4-10.2); Carbon Dioxide 22 mmol/L (22-29); Chloride 109 mmol/L (96-108); Creatinine Clr Calc Pharmacy 92.5; Estimated Glomerular Filt Rate > 60; Glucose Random 110 mg/dL (60-115); Magnesium 1.9 mg/dL (1.6-2.6); Potassium 3.9 mmol/L (3.3-5.1); Sodium 140 mmol/L (135-145); Total Protein 8.1 g/dL (6.5-8.0)
--- NOTE | 2024-09-22 11:09 | ED_ITS ---
HPI - Abdominal Pain General Chief Complaint: Abdominal Pain Stated Complaint: ABD PAIN X 3 DAYS Time Seen by Provider: 09/22/24 10:57 Source: patient Mode of arrival: ambulatory Limitations: no limitations History of Present Illness HPI narrative: This is 43 years old female patient presented to the emergency department with a chief complaint of upper abdominal pain pain started this morning. She has been diagnosed with a erosive gastritis and H pylori she has been started on Monday on doxycycline and metronidazole and PPI. This morning she felt more pain in the upper abdomen, no vomiting no diarrhea no fever MD elicited complaint: abdominal pain Pertinent past history: other (Erosive gastritis) Onset (ago): hour(s) (6) Pain Consistency: constant Location: epigastric Severity: mild Radiation: none Migration to: no migration Exacerbating factors: nothing Relieving factors: nothing Related Data Home Medications ?Medication ?Instructions ?Recorded ?Confirmed epinephrine 0.3 mg/0.3 mL IM DAILY 09/03/24 09/20/24 injection, auto-injector Previous Rx's ?Medication ?Instructions ?Recorded acetaminophen 500 mg tablet 1,000 mg (2 x 500 mg) PO Q6H PRN 10/14/21 fever #30 tabs cholecalciferol (vitamin D3) 50 50 mcg PO DAILY 90 days #90 caps 05/18/23 mcg (2,000 unit) capsule albuterol sulfate 90 mcg/actuation 2 puff inhalation Q4-6H PRN 08/07/23 aerosol inhaler (ProAir HFA) shortness of breath or wheezing #8.5 grams esomeprazole magnesium 40 mg 40 mg PO DAILY #30 caps 09/03/24 capsule,delayed release (Nexium) famotidine 40 mg tablet 40 mg PO BEDTIME #90 tabs 09/04/24 bismuth subsalicylate 525 mg tablet 525 mg PO QID diarrhea 14 days #56 09/20/24 tabs doxycycline hyclate 100 mg capsule 100 mg PO BID 14 days #28 caps 09/20/24 esomeprazole magnesium 40 mg 40 mg PO BID 14 days #28 caps 09/20/24 capsule,delayed release metronidazole 500 mg tablet 500 mg PO QID 14 days #56 tabs 09/20/24 Allergies Allergy/AdvReac Type Severity Reaction Status Date / Time latex Allergy Mild Rash Verified 09/22/24 09:42 Iodinated Contrast Media Allergy Unknown HIVES Verified 09/22/24 09:42 [IV CONTRAST] Milk Containing Products Allergy Unknown Verified 09/22/24 09:42 (Dairy) peanut Allergy Anaphylaxis Verified 09/22/24 09:42 shellfish derived Allergy Unknown Verified 09/22/24 09:42 diphenhydramine AdvReac Unknown Chest Pain Verified 09/22/24 09:42 [From BENADRYL] IV contrast dye Allergy Unknown facial rash Uncoded 09/22/24 09:42 Review of Systems Constitutional: Reports no additional constitutional complaints Cardiovascular: Reports no additional cardiovascular complaints Respiratory: Reports no additional respiratory complaints Gastrointestinal: Reports abdominal pain [facility] Past Medical History Attestation statement: The following information was validated with the patient. [facility] Narrative: History of erosive gastritis/H pylori positive Medical History Erosive gastritis Vitamin D deficiency Obesity (BMI 30-39.9) Nocturnal leg cramps Surgical History History of tubal ligation Previous section Family History Family History Mother No problems noted. 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 Cognitive needs: No Hearing needs: No Vision needs: No Physical Exam ED Vital Signs: Vital Signs - 24 hr 09/22/24 09:38 09/22/24 10:47 Temperature 98 F 98.4 F Pulse Rate 72 64 Respiratory Rate 18 16 Blood Pressure 134/79 116/68 Pulse Oximetry 98 99 Oxygen Delivery Method Room Air Room Air BMI result Body Mass Index 32.1 On physical examination she looks well she is not toxic-appearing she is sitting comfortably with in the stretcher Const General: cooperative Nutritional Appearance: average body habitus Orientation/consciousness: patient oriented x3 Limitations: no limitations HENMT Head: Yes normal to inspection Ears: hearing grossly normal bilaterally General nose exam: Normal external nose present Eyes General: appearance normal, both eyes and all related structures EOM: EOMs intact bilaterally Neck Neck: Yes normal visual inspection Chest Chest palpation & inspection: normal inspection of the chest Resp Effort & Inspection: normal respiratory effort Auscultation: clear to auscultation bilaterally Cardio Jugular venous distension: no JVD Rate: regular rate Rhythm: regular rhythm GI Inspection: Yes normal to inspection Palpation (GI): Soft to palpation and not firm Skin General skin exam: no rashes or lesions noted Lesions: no lesions Rashes: no rashes Trauma: no lacerations or abrasions Neuro General: patient oriented x3 Cranial nerves: Yes CN's II-XII intact bilaterally Extrem General: Yes normal to inspection Right lower extremity: normal to inspection Course Reevaluation(s) Reevaluation #1: she is feeling better no pain after GI cocktail Time: 12:01 Medical Decision Making Medical Decision Making [facility] Narrative: Patient presented to the emergency department with a chief complaint of upper abdominal pain history H pylori history of erosive gastritis we will obtain labs 12:01 on re-examination she is feeling much better, labs are within normal limit excellent result after GI cocktail. Shared decision making with the patient and significant other discussed CT scan of the abdomen and pelvis by given the fact that the labs are normal given the fact that the pain is now gone I think risk of radiation would outweigh the benefit. Patient a see if that the other comfortable with the plan. I do not think we need to change her H pylori medication she just started on Monday she is already on PPI. She will follow-up with the primary care physician Differential Diagnosis Differential Diagnoses: The differential diagnosis associated with the presentation includes Gastritis/peptic ulcer disease/pancreatitis Admission/Observation Consideration of admission/observation: Escalation of care including admission/observation considered Lab Data [facility] Lab Attestation statement: I reviewed the patient's lab results. 09/22/24 10:23 09/22/24 10:23 Labs: Lab Results 09/22/24 Range/Units 10:23 WBC 9.5 (4.8-10.8) X10*3/uL RBC 4.16 L (4.20-5.50) X10*6/uL Hgb 12.4 (12.0-16.0) g/dl Hct 38.2 (37.0-47.0) % MCV 91.8 (80.0-98.0) fL MCH 29.8 (27.0-33.0) pg MCHC 32.5 (31.0-35.0) g/dl RDW 13.0 (11.0-16.0) % Plt Count 282 (160-400) X10*3/uL MPV 9.6 (9.4-12.3) fL Immature Gran % (Auto) 0.2 (0.0-0.4) % Neut % (Auto) 84.6 H (45-73) % Lymph % (Auto) 9.3 L (20-40) % [place]oval % (Auto) 4.5 (2-11) % Eos % (Auto) 1.1 (0-4) % Baso % (Auto) 0.3 (0-2) % Lymph # (Auto) 0.9 L (1.2-4.9) X10*3/uL [place] # (Auto) 0.4 (0.1-1.2) X10*3/uL Eos # (Auto) 0.1 (0.0-0.4) X10*3/uL Baso # (Auto) 0.0 (0.0-0.2) X10*3/uL Abs Immat Gran (auto) 0.02 (0.00-0.03) X10*3/uL Absolute Neuts (auto) 8.0 (2.0-8.3) x10*3/uL Absolute Nucleated RBC 0.000 (0.0-0.012) X10*3/uL Nucleated RBC % (auto) 0.0 (0.0-0.2) /100WBC Sodium 140 (135-145) mmol/L Potassium 3.9 (3.3-5.1) mmol/L Chloride 109 H (96-108) mmol/L Carbon Dioxide 22 (22-29) mmol/L Anion Gap 13 (12-20) BUN 15 (9-16) mg/dL Creatinine 0.78 (0.5-1.4) mg/dL Estim Creat Clear Calc 92.5 Estimated GFR > 60 Random Glucose 110 (60-115) mg/dL Calcium 9.4 (8.4-10.2) mg/dL Magnesium 1.9 (1.6-2.6) mg/dL Total Bilirubin 0.6 (0.0-1.0) mg/dL AST 22 (5-31) U/L ALT 12 (0-31) U/L Alkaline Phosphatase 83 (39-117) U/L Total Protein 8.1 H (6.5-8.0) g/dL Albumin 4.4 (3.5-5.0) g/dL Lipase 18 (8-78) U/L Beta HCG, Quant < 2 mIU/mL Influenza Type A (PCR) NEGATIVE (Negative) Influenza Type B (PCR) NEGATIVE (Negative) RSV RNA Qual (PCR) NEGATIVE (Negative) SARS-CoV-2 RNA (RT-PCR) NEGATIVE (Negative) Independent Historian Clinical information obtained from an independent historian. History obtained from or confirmed by: Other (significative other) Medications Administered Discontinued Medications Generic Name Dose Route Start Last Admin Trade Name Freq PRN Reason Stop Dose Admin Al Hydroxide/Mg Hydroxide 30 ml 09/22/24 11:06 09/22/24 11:48 Magnesium Hydrox/Alum Hydrox 30 Ml Oral.Susp PO 09/22/24 11:07 30 ml ONCE ONE Administration Belladonna Alkaloids/Phenobarbital 5 ml 09/22/24 11:06 09/22/24 11:49 Phenobarb/Hyoscy/Atropine/Scop 10 Ml Elixir PO 09/22/24 11:07 5 ml ONCE ONE Administration Lidocaine HCl 5 ml 09/22/24 11:06 09/22/24 11:48 Lidocaine Hcl Viscous 2 % 15 Ml Solution MUCOUS MEM 09/22/24 11:07 5 ml ONCE ONE Administration Discharge Plan Discharge Clinical Impression: Gastritis Qualifiers: Gastritis type: unspecified gastritis Chronicity: acute Gastritis bleeding: w ithout bleeding Qualified Code(s): K29.00 - Acute gastritis without bleeding Patient Disposition: Home, Self-Care Instructions: Gastritis (DC) Additional Instructions: Save liquid diet today no solid food ,soup OK,jello ok tomorrow you can resume regular diet gradually. Make sure you call your primary care physician for follow-up Prescriptions: No Action famotidine 40 mg tablet 40 mg PO BEDTIME Qty: 90 0RF albuterol sulfate [ProAir HFA] 90 mcg/actuation HFA aerosol inhaler 2 puff inhalation Q4-6H PRN (Reason: shortness of breath or wheezing) Qty: 8.5 0RF acetaminophen 500 mg tablet 1,000 mg PO Q6H PRN (Reason: fever) Qty: 30 0RF cholecalciferol (vitamin D3) 50 mcg (2,000 unit) capsule 50 mcg PO DAILY 90 Days Qty: 90 3RF doxycycline hyclate 100 mg capsule 100 mg PO BID 14 Days Qty: 28 0RF metronidazole 500 mg tablet 500 mg PO QID 14 Days Qty: 56 0RF esomeprazole magnesium 40 mg capsule,delayed release(DR/EC) 40 mg PO BID 14 Days Qty: 28 0RF bismuth subsalicylate 525 mg tablet 525 mg PO QID 14 Days Qty: 56 0RF Rx Instructions: do not exceed 8 doses in a 24 hour period epinephrine 0.3 mg/0.3 mL auto-injector IM DAILY esomeprazole magnesium [Nexium] 40 mg capsule,delayed release(DR/EC) 40 mg PO DAILY Qty: 30 5RF Print Language: Armenian
[2024-09-22 11:17] LABS: Influenza A PCR NEGATIVE (Negative); Influenza B PCR NEGATIVE (Negative); Resp Syncy Virus RNA Qual PCR NEGATIVE (Negative); SARS COV2 PCR INHOUSE NEGATIVE (Negative)
[2024-09-22 11:26] LABS: Lipase 18 U/L (8-78)
[2024-09-22 11:33] LABS: HCG Quantitative < 2 mIU/mL
[2024-09-22] MEDS: Lidocaine HCl Viscous 2 % 15 ML SOLUTION 5 ML MUCOUS MEM (11:48)
[2024-09-22] MEDS: Magnesium Hydrox/Alum Hydrox 30 ML ORAL.SUSP PO (11:48)
[2024-09-22] MEDS: PHENobarb/Hyoscy/Atropine/Scop 10 ML ELIXIR 5 ML PO (11:49)
[2024-09-22 13:57] VITALS: BP 116/68; PULSE 64; RESP 16; TEMP 36.9; O2SAT 99
== END 2024-09-22 13:58 | disposition home or self-care (01) ==
PROVIDERS: Physician Assistant Medical; Emergency Provider Emergency Medicine; PCP Internal Medicine
DX: K29.00 Acute gastritis without bleeding (principal); R10.13 Epigastric pain; R10.2 Pelvic and perineal pain; Z03.818 Encounter for observation for suspected exposure to other biological agents ruled out; Z79.899 Other long term (current) drug therapy
CPT/HCPCS: 0241U; 80053; 83690; 83735; 84702; 85025; 99283

== ENCOUNTER 2024-09-27 13:04 | Emergency (ER) | payer BC, SELFPAY ==
--- NOTE | 2024-09-27 13:06 | ECG_ITS ---
Test Reason : chest pain Blood Pressure : */* mmHG Vent. Rate : 71 BPM Atrial Rate : 71 BPM P-R Int : 124 ms QRS Dur : 64 ms QT Int : 394 ms P-R-T Axes : 17 13 26 degrees QTcB Int : 428 ms Normal sinus rhythm with sinus arrhythmia Normal ECG When compared with ECG of 27-Mar-2024 22:40, Nonspecific T wave abnormality, improved in Inferior leads Nonspecific T wave abnormality no longer evident in Anterolateral leads Referred By: Generic ED Physician Electronically Signed By: MIHIR DELEON MD
[2024-09-27 13:40] VITALS: BP 154/78; PULSE 70; RESP 16; TEMP 36.4; O2SAT 100; BMI 31.1
--- NOTE | 2024-09-27 13:41 | ED_ITS ---
HPI - General Adult General Chief complaint: General Medical Stated complaint: CP, headache Time Seen by Provider: 09/27/24 20:35 Source: patient Mode of arrival: ambulatory Limitations: no limitations History of Present Illness ED Provider: Dr. Anayeli Cifuentes HPI narrative: Patient comes to the emergency room complaining of sternal chest pain. Patient states it is worse when she moves certain ways. Denies any heavy lifting or any trauma. Denies any coughing, denies difficulty breathing. Denies chest pain at this time. Patient states that the symptoms of chest pain with movement happened going on for about 3 days. When asked what she means by having dizziness, patient states that she does not feel well, has been having nausea with no vomiting or diarrhea. No fever or chills. Related Data Home Medications ?Medication ?Instructions ?Recorded ?Confirmed epinephrine 0.3 mg/0.3 mL IM DAILY 09/03/24 09/20/24 injection, auto-injector Previous Rx's ?Medication ?Instructions ?Recorded acetaminophen 500 mg tablet 1,000 mg (2 x 500 mg) PO Q6H PRN 10/14/21 fever #30 tabs cholecalciferol (vitamin D3) 50 50 mcg PO DAILY 90 days #90 caps 05/18/23 mcg (2,000 unit) capsule albuterol sulfate 90 mcg/actuation 2 puff inhalation Q4-6H PRN 08/07/23 aerosol inhaler (ProAir HFA) shortness of breath or wheezing #8.5 grams esomeprazole magnesium 40 mg 40 mg PO DAILY #30 caps 09/03/24 capsule,delayed release (Nexium) famotidine 40 mg tablet 40 mg PO BEDTIME #90 tabs 09/04/24 bismuth subsalicylate 525 mg tablet 525 mg PO QID diarrhea 14 days #56 09/20/24 tabs doxycycline hyclate 100 mg capsule 100 mg PO BID 14 days #28 caps 09/20/24 esomeprazole magnesium 40 mg 40 mg PO BID 14 days #28 caps 09/20/24 capsule,delayed release metronidazole 500 mg tablet 500 mg PO QID 14 days #56 tabs 09/20/24 acetaminophen 500 mg tablet 500 mg PO Q6H PRN fever or pain 09/27/24 #30 tabs Allergies Allergy/AdvReac Type Severity Reaction Status Date / Time latex Allergy Mild Rash Verified 09/27/24 13:41 Iodinated Contrast Media Allergy Unknown HIVES Verified 09/27/24 13:41 [IV CONTRAST] Milk Containing Products Allergy Unknown Verified 09/27/24 13:41 (Dairy) peanut Allergy Anaphylaxis Verified 09/27/24 13:41 shellfish derived Allergy Unknown Verified 09/27/24 13:41 diphenhydramine AdvReac Unknown Chest Pain Verified 09/27/24 13:41 [From BENADRYL] IV contrast dye Allergy Unknown facial rash Uncoded 09/22/24 09:42 Review of Systems 2 Review of Systems: Constitutional : No Weight loss, No Fever, No Chills, No Night Sweats, No Fatigue, No Malaise ENT/Mouth : No Hearing loss, No Ear Pain, No Nasal Congestion, No Sinus Pain, No Hoarseness, No sore throat, No Rhinorrhea, No Swallowing Difficulty Eyes: No Eye Pain, No Swelling, No Redness, No Foreign Body, No Discharge, No Vision Changes Cardiovascular : Complaining of muscular wall chest pain with certain movements, No Chest Pain, No SOB, No Dyspnea on Exertion, No Orthopnea, No Edema, No Palpitations Respiratory : No Cough, No Sputum, No Wheezing, No Smoke Exposure, No Dyspnea Gastrointestinal : No Nausea, No Vomiting, No Diarrhea, No Constipation, No abdominal Pain, No Hematochezia, No Melena Genitourinary : no irregular bleeding, No Dysuria, No Urinary Frequency, No Hematuria, No Urinary Incontinence, No Urgency, No Flank Pain, No Urinary Flow Changes, No Hesitancy Musculoskeletal : No joint pain, No Myalgias, No Joint Swelling Skin : No Skin Lesions, No rash Neuro : No Weakness, No Numbness, No Paresthesias, No Loss of Consciousness, No Dizziness, No Headache Psych : No Anxiety/Panic, No Depression, No SI/HI/AH/VH, No Social Issues, Heme/Lymph: No Bruising, No Bleeding,No Lymphadenopathy Endocrine : No Polyuria, No Polydipsia, No Temperature Intolerance [facility] Past Medical History Medical History Erosive gastritis Vitamin D deficiency Obesity (BMI 30-39.9) Nocturnal leg cramps Surgical History History of tubal ligation Previous section Family History Family History Mother No problems noted. 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 Oriented X3. No acute distress. Eyes: Pupils equal, round and reactive to light. ENT: Pharynx normal. Neck: Normal inspection. Neck supple. No lymph nodes noted. No crepitus CVS: Normal heart rate and rhythm. Pulses normal. Normal S1 and S2. Reproducible chest pain to palpation and with lower ext rotation Respiratory: No respiratory distress. Breath sounds normal. No Wheezing. No rales Abdomen: Soft and nontender. No rigidity. No distention. Skin: Skin warm and dry. Normal skin color. Normal skin turgor. Extremities: No lower extremity edema. No Lacerations. No Rash Neuro: Oriented X 3. No motor deficit. No sensory deficit. Moving all extremities. No slurred speech. CN 2 through 12 grossly intact Psych: calm, cooperative, normal affect Course Course Course Narrative: RME, this is a rapid medical exam performed by Michael Messina please refer to primary provider for complete H&P- 43-year-old female presents for evaluation of chest pain. Plan for labs EKG was done in triage Medical Decision Making Medical Decision Making MDM Narrative: My interpretation of EKG: Sinus rhythm, heart rate 71, no ST segment depression or elevation, no T-wave inversion, QTC 428 All of patient's labs and imaging within normal limits, troponin x2 negative Patient has reproducible chest pain Patient states that she is allergic to ibuprofen. Patient was given Tylenol. Pulmonary embolism is not suspected, severiano criteria for pulmonary embolism is 0 Differential Diagnosis Differential Diagnoses: The differential diagnosis associated with the presentation includes (ACS, musculoskeletal pain, anxiety) Lab Data MDM Lab Attestation statement: I reviewed the patient's lab results. 09/27/24 15:26 09/27/24 15:26 Labs: Lab Results 09/27/24 09/27/24 Range/Units 15:26 20:48 WBC 6.8 (4.8-10.8) X10*3/uL RBC 3.82 L (4.20-5.50) X10*6/uL Hgb 11.3 L (12.0-16.0) g/dl Hct 35.7 L (37.0-47.0) % MCV 93.5 (80.0-98.0) fL MCH 29.6 (27.0-33.0) pg MCHC 31.7 (31.0-35.0) g/dl RDW 13.3 (11.0-16.0) % Plt Count 303 (160-400) X10*3/uL MPV 9.2 L (9.4-12.3) fL Immature Gran % (Auto) 0.3 (0.0-0.4) % Neut % (Auto) 67.3 (45-73) % Lymph % (Auto) 23.1 (20-40) % [place] % (Auto) 5.7 (2-11) % Eos % (Auto) 3.2 (0-4) % Baso % (Auto) 0.4 (0-2) % Lymph # (Auto) 1.6 (1.2-4.9) X10*3/uL [place] # (Auto) 0.4 (0.1-1.2) X10*3/uL Eos # (Auto) 0.2 (0.0-0.4) X10*3/uL Baso # (Auto) 0.0 (0.0-0.2) X10*3/uL Abs Immat Gran (auto) 0.02 (0.00-0.03) X10*3/uL Absolute Neuts (auto) 4.6 (2.0-8.3) x10*3/uL Absolute Nucleated RBC 0.000 (0.0-0.012) X10*3/uL Nucleated RBC % (auto) 0.0 (0.0-0.2) /100WBC PT 13.2 H (10.9-12.4) SEC INR 1.1 (0.9-1.1) Sodium 141 (135-145) mmol/L Potassium 4.0 (3.3-5.1) mmol/L Chloride 109 H (96-108) mmol/L Carbon Dioxide 27 (22-29) mmol/L Anion Gap 9 L (12-20) BUN 9 (9-16) mg/dL Creatinine 0.70 (0.5-1.4) mg/dL Estim Creat Clear Calc 101.4 Estimated GFR > 60 Random Glucose 93 (60-115) mg/dL Calcium 9.3 (8.4-10.2) mg/dL Total Bilirubin 0.2 (0.0-1.0) mg/dL AST 26 (5-31) U/L ALT 11 (0-31) U/L Alkaline Phosphatase 76 (39-117) U/L Troponin I High Sens < 2.7 < 2.7 (<3.5-17.0) ng/L Total Protein 7.9 (6.5-8.0) g/dL Albumin 4.2 (3.5-5.0) g/dL Lipase 29 (8-78) U/L Influenza Type A (PCR) NEGATIVE (Negative) Influenza Type B (PCR) NEGATIVE (Negative) RSV RNA Qual (PCR) NEGATIVE (Negative) SARS-CoV-2 RNA (RT-PCR) NEGATIVE (Negative) Independent Interpretation I performed an independent interpretation of an: EKG Discharge Plan Discharge Clinical Impression: Costochondritis Patient Disposition: Home, Self-Care Instructions: Costochondritis (ED), Thoracic Pain (ED) Additional Instructions: Please follow-up with your primary care physician tomorrow. If you have any worsening or new symptoms, please return to the emergency room or call 911 Prescriptions: New acetaminophen 500 mg tablet 500 mg PO Q6H PRN (Reason: fever or pain) Qty: 30 0RF No Action famotidine 40 mg tablet 40 mg PO BEDTIME Qty: 90 0RF albuterol sulfate [ProAir HFA] 90 mcg/actuation HFA aerosol inhaler 2 puff inhalation Q4-6H PRN (Reason: shortness of breath or wheezing) Qty: 8.5 0RF acetaminophen 500 mg tablet 1,000 mg PO Q6H PRN (Reason: fever) Qty: 30 0RF cholecalciferol (vitamin D3) 50 mcg (2,000 unit) capsule 50 mcg PO DAILY 90 Days Qty: 90 3RF doxycycline hyclate 100 mg capsule 100 mg PO BID 14 Days Qty: 28 0RF metronidazole 500 mg tablet 500 mg PO QID 14 Days Qty: 56 0RF esomeprazole magnesium 40 mg capsule,delayed release(DR/EC) 40 mg PO BID 14 Days Qty: 28 0RF bismuth subsalicylate 525 mg tablet 525 mg PO QID 14 Days Qty: 56 0RF Rx Instructions: do not exceed 8 doses in a 24 hour period epinephrine 0.3 mg/0.3 mL auto-injector IM DAILY esomeprazole magnesium [Nexium] 40 mg capsule,delayed release(DR/EC) 40 mg PO DAILY Qty: 30 5RF Print Language: Guamanian
[2024-09-27 15:30] LABS: MANUAL DIFF FLAG NO
[2024-09-27 15:32] LABS: Basophils Percent Auto 0.4 % (0-2); Eosinophils Absolute Auto 0.2 X10*3/uL (0.0-0.4); Eosinophils Percent Auto 3.2 % (0-4); Hematocrit 35.7 % (37.0-47.0); Hemoglobin 11.3 g/dl (12.0-16.0); Imm Gran Abs Auto 0.02 X10*3/uL (0.00-0.03); Imm Gran Pct Auto 0.3 % (0.0-0.4); Lymphocytes Absolute Auto 1.6 X10*3/uL (1.2-4.9); Lymphocytes Percent Auto 23.1 % (20-40); Mean Corpuscular HGB Conc 31.7 g/dl (31.0-35.0); Mean Corpuscular Hemoglobin 29.6 pg (27.0-33.0); Mean Corpuscular Volume 93.5 fL (80.0-98.0); Mean Platelet Volume 9.2 fL (9.4-12.3); Monocytes Absolute Auto 0.4 X10*3/uL (0.1-1.2); Monocytes Percent Auto 5.7 % (2-11); Neutrophils Absolute Auto 4.6 x10*3/uL (2.0-8.3); Neutrophils Percent Auto 67.3 % (45-73); Platelet Count 303 X10*3/uL (160-400); Red Blood Count 3.82 X10*6/uL (4.20-5.50); Red Cell Distribution Width 13.3 % (11.0-16.0); White Blood Count 6.8 X10*3/uL (4.8-10.8)
[2024-09-27 15:37] LABS: INTERNATIONAL NORM RATIO 1.1 (0.9-1.1); Prothrombin Time 13.2 SEC (10.9-12.4)
[2024-09-27 15:52] LABS: Alanine Aminotransferase 11 U/L (0-31); Albumin Level 4.2 g/dL (3.5-5.0); Anion Gap 9 (12-20); Aspartate Amino Transferase 26 U/L (5-31); Bilirubin Total 0.2 mg/dL (0.0-1.0); Blood Urea Nitrogen 9 mg/dL (9-16); Calcium 9.3 mg/dL (8.4-10.2); Carbon Dioxide 27 mmol/L (22-29); Chloride 109 mmol/L (96-108); Creatinine Clr Calc Pharmacy 101.4; Estimated Glomerular Filt Rate > 60; Glucose Random 93 mg/dL (60-115); Lipase 29 U/L (8-78); Sodium 141 mmol/L (135-145); Total Protein 7.9 g/dL (6.5-8.0)
[2024-09-27 15:53] LABS: Troponin-I High Sensitivity < 2.7 ng/L (<3.5-17.0)
[2024-09-27 15:57] LABS: Alkaline Phosphatase 76 U/L (39-117)
[2024-09-27 16:09] LABS: Influenza A PCR NEGATIVE (Negative); Influenza B PCR NEGATIVE (Negative); Resp Syncy Virus RNA Qual PCR NEGATIVE (Negative); SARS COV2 PCR INHOUSE NEGATIVE (Negative)
[2024-09-27 20:46] VITALS: BP 141/74; PULSE 57; RESP 14; TEMP 36.5; O2SAT 100
[2024-09-27 21:21] LABS: Troponin-I High Sensitivity < 2.7 ng/L (<3.5-17.0)
[2024-09-27 22:25] VITALS: BP 134/77; PULSE 56; RESP 16; TEMP 36.9; O2SAT 100
[2024-09-27 22:29] VITALS: BP 134/77; PULSE 56; RESP 16; TEMP 36.9; O2SAT 100
== END 2024-09-27 22:29 | disposition home or self-care (01) ==
PROVIDERS: Physician Assistant; Emergency Provider Emergency Medicine; PCP Internal Medicine
DX: M94.0 Chondrocostal junction syndrome [Tietze] (principal); R07.89 Other chest pain; R51.9 Headache, unspecified; I49.8 Other specified cardiac arrhythmias; Z03.818 Encounter for observation for suspected exposure to other biological agents ruled out; Z79.899 Other long term (current) drug therapy
CPT/HCPCS: 0241U; 36415; 80053; 83690; 84484; 85025; 85610; 93005; 99283; 99284

== ENCOUNTER → 2024-09-27 13:06 | Outpatient (BNV) | payer BC, SELFPAY | PROVIDERS: PCP Internal Medicine; Visit Provider Internal Medicine Cardiovascular Disease | DX: I49.9 Cardiac arrhythmia, unspecified (principal) | CPT/HCPCS: 93010 ==

== ENCOUNTER 2024-10-09 16:04 | Emergency (ER) | payer BC, SELFPAY ==
--- NOTE | 2024-10-09 | ECG_ITS ---
Test Reason : CHEST PAIN Blood Pressure : */* mmHG Vent. Rate : 75 BPM Atrial Rate : 75 BPM P-R Int : 150 ms QRS Dur : 70 ms QT Int : 396 ms P-R-T Axes : 15 29 39 degrees QTcB Int : 442 ms Normal sinus rhythm Low voltage QRS Borderline ECG When compared with ECG of 27-Sep-2024 13:27, No significant change was found Referred By: Generic ED Physician Electronically Signed By: Eliseo Gunderson
--- NOTE | ~2024-10-09 | XR_ITS ---
EXAMINATION: XR CHEST CLINICAL INFORMATION: pain COMPARISON: None available. TECHNIQUE: 2 views of the chest were obtained. FINDINGS: The cardiac, hilar, and mediastinal contours are normal. The lungs are clear bilaterally. There is no pneumothorax or pleural effusion. There is no focal osseous or soft tissue abnormality. XR/XR chest 2V IMPRESSION: Normal chest. Electronically signed by: Yousuf Saul MD 10/09/2024 04:46 PM [facility]
[2024-10-09 16:22] VITALS: BP 136/77; PULSE 68; RESP 16; TEMP 36.4; O2SAT 100; BMI 31.5
--- NOTE | 2024-10-09 16:22 | ED.GENADULT ---
HPI - General Adult General Chief complaint: Chest Pain Stated complaint: Chest pain, SOB Time Seen by Provider: 10/09/24 22:34 Source: patient Mode of arrival: ambulatory Limitations: no limitations History of Present Illness ED Provider: Dr. Anayeli Cifuentes HPI narrative: Patient comes to the emergency room complaining of chest pain that started over 24 hours ago. Patient denies nausea vomiting or diarrhea. Patient denies any syncopal episodes. Patient states that sometimes she feels like she is short of breath but can still breathe. Patient denies any sick contacts. Related Data Home Medications ?Medication ?Instructions ?Recorded ?Confirmed epinephrine 0.3 mg/0.3 mL IM DAILY 09/03/24 09/20/24 injection, auto-injector Previous Rx's ?Medication ?Instructions ?Recorded acetaminophen 500 mg tablet 1,000 mg (2 x 500 mg) PO Q6H PRN 10/14/21 fever #30 tabs cholecalciferol (vitamin D3) 50 50 mcg PO DAILY 90 days #90 caps 05/18/23 mcg (2,000 unit) capsule albuterol sulfate 90 mcg/actuation 2 puff inhalation Q4-6H PRN 08/07/23 aerosol inhaler (ProAir HFA) shortness of breath or wheezing #8.5 grams esomeprazole magnesium 40 mg 40 mg PO DAILY #30 caps 09/03/24 capsule,delayed release (Nexium) famotidine 40 mg tablet 40 mg PO BEDTIME #90 tabs 09/04/24 bismuth subsalicylate 525 mg tablet 525 mg PO QID diarrhea 14 days #56 09/20/24 tabs doxycycline hyclate 100 mg capsule 100 mg PO BID 14 days #28 caps 09/20/24 esomeprazole magnesium 40 mg 40 mg PO BID 14 days #28 caps 09/20/24 capsule,delayed release metronidazole 500 mg tablet 500 mg PO QID 14 days #56 tabs 09/20/24 acetaminophen 500 mg tablet 500 mg PO Q6H PRN fever or pain 09/27/24 #30 tabs Allergies Allergy/AdvReac Type Severity Reaction Status Date / Time latex Allergy Mild Rash Verified 10/09/24 16:24 Iodinated Contrast Media Allergy Unknown HIVES Verified 10/09/24 16:24 [IV CONTRAST] Milk Containing Products Allergy Unknown Verified 10/09/24 16:24 (Dairy) peanut Allergy Anaphylaxis Verified 10/09/24 16:24 shellfish derived Allergy Unknown Verified 10/09/24 16:24 diphenhydramine AdvReac Unknown Chest Pain Verified 10/09/24 16:24 [From BENADRYL] IV contrast dye Allergy Unknown facial rash Uncoded 09/22/24 09:42 Review of Systems Review of Systems: Constitutional : No Weight loss, No Fever, No Chills, No Night Sweats, No Fatigue, No Malaise ENT/Mouth : No Hearing loss, No Ear Pain, No Nasal Congestion, No Sinus Pain, No Hoarseness, No sore throat, No Rhinorrhea, No Swallowing Difficulty Eyes: No Eye Pain, No Swelling, No Redness, No Foreign Body, No Discharge, No Vision Changes Cardiovascular : Complaining of chest discomfort for more than 24 hours,, No SOB, No Dyspnea on Exertion, No Orthopnea, No Edema, No Palpitations Respiratory : No Cough, No Sputum, No Wheezing, No Smoke Exposure, No Dyspnea Gastrointestinal : No Nausea, No Vomiting, No Diarrhea, No Constipation, No abdominal Pain, No Hematochezia, No Melena Genitourinary : no irregular bleeding, No Dysuria, No Urinary Frequency, No Hematuria, No Urinary Incontinence, No Urgency, No Flank Pain, No Urinary Flow Changes, No Hesitancy Musculoskeletal : No joint pain, No Myalgias, No Joint Swelling Skin : No Skin Lesions, No rash Neuro : No Weakness, No Numbness, No Paresthesias, No Loss of Consciousness, No Dizziness, No Headache Psych : No Anxiety/Panic, No Depression, No SI/HI/AH/VH, No Social Issues, Heme/Lymph: No Bruising, No Bleeding,No Lymphadenopathy Endocrine : No Polyuria, No Polydipsia, No Temperature Intolerance PENDING SALE TO [facility] Past Medical History Medical History Erosive gastritis Vitamin D deficiency Obesity (BMI 30-39.9) Nocturnal leg cramps Surgical History History of tubal ligation Previous section Family History Family History Mother No problems noted. 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 Oriented X3. No acute distress. well-appearing Eyes: Pupils equal, round and reactive to light. ENT: Pharynx normal. Neck: Normal inspection. Neck supple. No lymph nodes noted. No crepitus CVS: Normal heart rate and rhythm. Pulses normal. Normal S1 and S2 Respiratory: No respiratory distress. Breath sounds normal. No Wheezing. No rales Abdomen: Soft and nontender. No rigidity. No distention. Skin: Skin warm and dry. Normal skin color. Normal skin turgor. Extremities: No lower extremity edema. No Lacerations. No Rash Neuro: Oriented X 3. No motor deficit. No sensory deficit. Moving all extremities. No slurred speech. CN 2 through 12 grossly intact Psych: calm, cooperative, normal affect Course Course Course Narrative: RME, this is a rapid medical exam performed by Michael Messina please refer to primary provider for complete H&P- 43 year old female presents for evaluation of chest pain and shortness of breath. Plan for cardiac workup. Medical Decision Making Medical Decision Making [facility] Narrative: my interpretation of labs: No significant abnormality in patient's hematology and chemistry, normal troponin. Of note, EKG was done but did not cross over the system. My interpretation: Sinus rhythm, heart rate 75, no ST segment depression or elevation, nonspecific T-wave inversion in V3, QTC 442 chest x-ray did not show any acute abnormality. I reviewed patient's medical records, patient has had approximately 5 visits complaining of chest pain. All of her workups have been negative. Patient's symptoms are most likely musculoskeletal versus anxiety rather than from cardiac or pulmonary etiology. I discussed with the patient that it would be best to have a stress test, to be discussed with patient's PCP Differential Diagnosis Differential Diagnoses: The differential diagnosis associated with the presentation includes ( as above) Admission/Observation Consideration of admission/observation: Escalation of care including admission/observation considered ( given patient's repeated visits for same complaint, observation was considered) Lab Data MDM Lab Attestation statement: I reviewed the patient's lab results. 10/09/24 16:40 10/09/24 16:40 Labs: Lab Results 10/09/24 Range/Units 16:40 WBC 7.3 (4.8-10.8) X10*3/uL RBC 3.80 L (4.20-5.50) X10*6/uL Hgb 11.7 L (12.0-16.0) g/dl Hct 35.1 L (37.0-47.0) % MCV 92.4 (80.0-98.0) fL MCH 30.8 (27.0-33.0) pg MCHC 33.3 (31.0-35.0) g/dl RDW 13.4 (11.0-16.0) % Plt Count 287 (160-400) X10*3/uL MPV 9.3 L (9.4-12.3) fL Immature Gran % (Auto) 0.3 (0.0-0.4) % Neut % (Auto) 63.4 (45-73) % Lymph % (Auto) 28.0 (20-40) % [place] % (Auto) 5.4 (2-11) % Eos % (Auto) 2.6 (0-4) % Baso % (Auto) 0.3 (0-2) % Lymph # (Auto) 2.0 (1.2-4.9) X10*3/uL [place] # (Auto) 0.4 (0.1-1.2) X10*3/uL Eos # (Auto) 0.2 (0.0-0.4) X10*3/uL Baso # (Auto) 0.0 (0.0-0.2) X10*3/uL Abs Immat Gran (auto) 0.02 (0.00-0.03) X10*3/uL Absolute Neuts (auto) 4.6 (2.0-8.3) x10*3/uL Absolute Nucleated RBC 0.000 (0.0-0.012) X10*3/uL Nucleated RBC % (auto) 0.0 (0.0-0.2) /100WBC PT 12.2 (10.9-12.4) SEC INR 1.0 (0.9-1.1) Sodium 140 (135-145) mmol/L Potassium 3.5 (3.3-5.1) mmol/L Chloride 105 (96-108) mmol/L Carbon Dioxide 30 H (22-29) mmol/L Anion Gap 9 L (12-20) BUN 9 (9-16) mg/dL Creatinine 0.76 (0.5-1.4) mg/dL Estim Creat Clear Calc 94.0 Estimated GFR > 60 Random Glucose 123 H (60-115) mg/dL Calcium 9.4 (8.4-10.2) mg/dL Total Bilirubin 0.2 (0.0-1.0) mg/dL AST 26 (5-31) U/L ALT 17 (0-31) U/L Alkaline Phosphatase 64 (39-117) U/L Troponin I High Sens < 2.7 (<3.5-17.0) ng/L Total Protein 7.9 (6.5-8.0) g/dL Albumin 4.2 (3.5-5.0) g/dL Lipase 33 (8-78) U/L Influenza Type A (PCR) NEGATIVE (Negative) Influenza Type B (PCR) NEGATIVE (Negative) RSV RNA Qual (PCR) NEGATIVE (Negative) SARS-CoV-2 RNA (RT-PCR) NEGATIVE (Negative) Independent Interpretation I performed an independent interpretation of an: EKG and Plain X-Ray Interpretation: The cardiac, hilar, and mediastinal contours are normal. The lungs are clear bilaterally. There is no pneumothorax or pleural effusion. There is no focal osseous or soft tissue abnormality. also, it was noted that patient takes esomeprazole in the morning and famotidine at night. I discussed with the patient that she should only be taking 1. Patient will continue only taking esomeprazole. Patient states that since she started taking famotidine at night on top of her esomeprazole, she has been having more chest pain. Patient denies burning sensation. Patient states the symptoms have been going on for over 2 months now Independent Historian Clinical information obtained from an independent historian. History obtained from or confirmed by: Spouse Critical Care Time Critical Care Time Critical Care Time: Yes Total Critical Care Time: 45 Attestation: I have personally provided critical care time. Time includes review of lab data, radiology results, discussion with consultants, and monitoring for potential decompensation. Intervention performed as documented. Discharge Plan Discharge Clinical Impression: Atypical chest pain Patient Disposition: Home, Self-Care Instructions: Chest Pain (ED) Additional Instructions: Please discuss with your PCP getting referred to cardiology for a stress test since you have been having multiple episodes of chest pain. All your workups have been negative so far. Also, please stop taking famotidine, only take esomeprazole once a day. Please follow-up with your primary care physician tomorrow. If you have any worsening or new symptoms, please return to the emergency room or call 911 Prescriptions: No Action famotidine 40 mg tablet 40 mg PO BEDTIME Qty: 90 0RF acetaminophen 500 mg tablet 500 mg PO Q6H PRN (Reason: fever or pain) Qty: 30 0RF albuterol sulfate [ProAir HFA] 90 mcg/actuation HFA aerosol inhaler 2 puff inhalation Q4-6H PRN (Reason: shortness of breath or wheezing) Qty: 8.5 0RF acetaminophen 500 mg tablet 1,000 mg PO Q6H PRN (Reason: fever) Qty: 30 0RF cholecalciferol (vitamin D3) 50 mcg (2,000 unit) capsule 50 mcg PO DAILY 90 Days Qty: 90 3RF doxycycline hyclate 100 mg capsule 100 mg PO BID 14 Days Qty: 28 0RF metronidazole 500 mg tablet 500 mg PO QID 14 Days Qty: 56 0RF esomeprazole magnesium 40 mg capsule,delayed release(DR/EC) 40 mg PO BID 14 Days Qty: 28 0RF bismuth subsalicylate 525 mg tablet 525 mg PO QID 14 Days Qty: 56 0RF Rx Instructions: do not exceed 8 doses in a 24 hour period epinephrine 0.3 mg/0.3 mL auto-injector IM DAILY esomeprazole magnesium [Nexium] 40 mg capsule,delayed release(DR/EC) 40 mg PO DAILY Qty: 30 5RF Referrals: Eliseo Gunderson MD [Physician] - 10/14/24 Print Language: Azerbaijani
[2024-10-09 16:44] LABS: MANUAL DIFF FLAG NO
[2024-10-09 16:47] LABS: Basophils Percent Auto 0.3 % (0-2); Eosinophils Absolute Auto 0.2 X10*3/uL (0.0-0.4); Eosinophils Percent Auto 2.6 % (0-4); Hematocrit 35.1 % (37.0-47.0); Hemoglobin 11.7 g/dl (12.0-16.0); Imm Gran Abs Auto 0.02 X10*3/uL (0.00-0.03); Imm Gran Pct Auto 0.3 % (0.0-0.4); Mean Corpuscular HGB Conc 33.3 g/dl (31.0-35.0); Mean Corpuscular Hemoglobin 30.8 pg (27.0-33.0); Mean Corpuscular Volume 92.4 fL (80.0-98.0); Mean Platelet Volume 9.3 fL (9.4-12.3); Monocytes Absolute Auto 0.4 X10*3/uL (0.1-1.2); Monocytes Percent Auto 5.4 % (2-11); Neutrophils Absolute Auto 4.6 x10*3/uL (2.0-8.3); Neutrophils Percent Auto 63.4 % (45-73); Platelet Count 287 X10*3/uL (160-400); Red Cell Distribution Width 13.4 % (11.0-16.0); White Blood Count 7.3 X10*3/uL (4.8-10.8)
[2024-10-09 16:51] LABS: Prothrombin Time 12.2 SEC (10.9-12.4)
[2024-10-09 17:02] LABS: Alanine Aminotransferase 17 U/L (0-31); Albumin Level 4.2 g/dL (3.5-5.0); Alkaline Phosphatase 64 U/L (39-117); Anion Gap 9 (12-20); Aspartate Amino Transferase 26 U/L (5-31); Bilirubin Total 0.2 mg/dL (0.0-1.0); Blood Urea Nitrogen 9 mg/dL (9-16); Calcium 9.4 mg/dL (8.4-10.2); Carbon Dioxide 30 mmol/L (22-29); Chloride 105 mmol/L (96-108); Estimated Glomerular Filt Rate > 60; Glucose Random 123 mg/dL (60-115); Lipase 33 U/L (8-78); Potassium 3.5 mmol/L (3.3-5.1); Sodium 140 mmol/L (135-145); Total Protein 7.9 g/dL (6.5-8.0)
[2024-10-09 17:11] LABS: Troponin-I High Sensitivity < 2.7 ng/L (<3.5-17.0)
[2024-10-09 17:27] LABS: Influenza A PCR NEGATIVE (Negative); Influenza B PCR NEGATIVE (Negative); Resp Syncy Virus RNA Qual PCR NEGATIVE (Negative); SARS COV2 PCR INHOUSE NEGATIVE (Negative)
[2024-10-09 22:36] VITALS: BP 128/72; PULSE 58; RESP 16; TEMP 36.6; O2SAT 100
[2024-10-09 23:22] VITALS: BP 128/72; PULSE 58; RESP 16; TEMP 36.6; O2SAT 100
== END 2024-10-09 23:23 | disposition home or self-care (01) ==
PROVIDERS: Physician Assistant; Emergency Provider Emergency Medicine; PCP Internal Medicine
DX: R07.89 Other chest pain (principal); R06.02 Shortness of breath; Z03.818 Encounter for observation for suspected exposure to other biological agents ruled out
CPT/HCPCS: 0241U; 71046; 80053; 83690; 84484; 85025; 85610; 93005; 99283; 99284

== ENCOUNTER → 2024-10-09 16:15 | Outpatient (BNV) | payer BC, SELFPAY | PROVIDERS: Emergency Provider Emergency Medicine; PCP Internal Medicine; Visit Provider Internal Medicine Cardiovascular Disease | DX: R07.9 Chest pain, unspecified (principal); R94.31 Abnormal electrocardiogram [ECG] [EKG] | CPT/HCPCS: 93010 ==

== ENCOUNTER → 2024-10-09 16:23 | Outpatient (BNV) | payer BC, SELFPAY | PROVIDERS: PCP Internal Medicine; Visit Provider Radiology Diagnostic Radiology | DX: R07.9 Chest pain, unspecified (principal); R06.02 Shortness of breath | CPT/HCPCS: 71046 ==

== ENCOUNTER 2024-10-15 09:21 | Outpatient (AMB) | payer BC, SELFPAY ==
[2024-10-15 09:28] VITALS: BP 112/70; TEMP 36.3; BMI 31.2
--- NOTE | 2024-10-15 09:28 | A.OFFPC_ITS ---
Vital Signs 10/15/24 09:28 Height 5 ft 3 in Weight 176 lb 2 oz BMI 31.2 BP 112/70 Blood Pressure Location Lt brachial Position Sitting Temp 97.3 F Temp Source Temporal Artery Scan Intake Visit Reasons: [facility] 10/09 Chest pain, SOB Intake Note: Patient is here to follow-up after a visit the emergency department at [facility] on 09/27 and 10/09 Dough Machine Operator Required: Yes Dough Machine Operator Language: Cmm Operator Name: Havery (spouise) Information Interpreted: non-clinical & clinical (pt decline gum dipper service, prefer spouse to translate.) Zinc Plater: Present Accompanied by: Spouse Allergies latex Allergy (Mild, Verified 10/15/24 10:12) Rash Iodinated Contrast Media [IV CONTRAST] Allergy (Unknown, Verified 10/15/24 10:12) HIVES Milk Containing Products (Dairy) Allergy (Verified 10/15/24 10:12) Unknown peanut Allergy (Verified 10/15/24 10:12) Anaphylaxis shellfish derived Allergy (Verified 10/15/24 10:12) Unknown diphenhydramine [From BENADRYL] Adverse Reaction (Unknown, Verified 10/15/24 10:12) Chest Pain IV contrast dye Allergy (Unknown, Uncoded 10/15/24 10:12) facial rash Medication List - Last Reconciled 10/15/24 by TRINY Castellanos acetaminophen 500 mg PO Q6H PRN albuterol sulfate 90 mcg/actuation 2 puffs inhalation Q4-6H PRN epinephrine IM DAILY Tobacco use date assessed: 09/20/24 Dental Screening Dental Screen Date: 09/20/24 HPI [facility] 10/09 Chest pain, SOB HPI Details The patient is a 43-year-old female presenting for post hospital visit follow up. Mongolian speaking, translating (declined ASL) The patient went to the emergency room on 10/09 complaining of chest pain EKG and chest x-ray were negative. Per ED note the patient had a proximally 5 visits complaining of chest pain and all of her workups have been negative. The patient also had a stress test in 2021: Cardiology note: Atypical symptoms but seem completely resolved. EKG is unremarkable and not showing any ischemic findings. In the exercise stress test, there was chest tightness and question of ischemia on the EKG. Did not reach target heart rate. Then repeated and this time she underwent pharmacological stress with Lexiscan. She also had perfusion imaging and that was completely normal. Hence EKG changes could be false positive. Overall, she has no risk factors apart from being bit overweight and atypical symptoms which are essentially resolved at this time. Per family, she stopped caffeine intake and that helped a lot. No further workup. Reassured. Today's visit: Reports getting the chest pain yesterday, but a dull pain only. Reports that the pain is in the mid-chest, reports that the pain feels like a pressure. Reports that she went to visit gastro and they increased her medication for heartburn and her pain has been getting worse since. Reports that the pain was severe at nights; she was having a burning sensation and stabbing sensation together. The patient reports that she went to the ER before for this. However, her last visit was more related to the chest pain because she was more worried about the chest pain. The patient reports that she stopped all the medications. She noticed that the medication during the daytime was still giving her abdominal pain as well. The patient has follow appt with GI 11/04/24-encouraged the patient to keep that appt. I will refer the back to Cardiology to evaluate and decide if it is necessary to repeat the stress test [facility] Medical History Erosive gastritis Vitamin D deficiency Obesity (BMI 30-39.9) Nocturnal leg cramps Surgical History History of tubal ligation Previous section Family History Mother No problems noted. 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 1. Little interest or pleasure in doing things: not at all 2. Feeling down, depressed, or hopeless: not at all 3. Trouble falling or staying asleep, or sleeping too much: not at all 4. Feeling tired or having little energy: not at all 5. Poor appetite or overeating: not at all 6. Feeling bad about yourself - or that you are a failure or have let yourself or your family down: not at all 7. Trouble concentrating on things, such as reading the newspaper or watching television: not at all 8. Moving or speaking so slowly that other people could have noticed. Or the opposite - being so fidgety or restless that you have been moving around a lot more than usual: not at all 9. Thoughts that you would be better off or of hurting yourself in some way: not at all Total score: 0 Depression Screening Interpretation: Negative Depression Screening Done: Yes Source: Developed by Drs. Bud Crystal, Thais Oliver, Rock Walter and colleagues, with an educational nguyen from [employer]. Thrive Questionnaire Date Thrive assessed: 10/15/24 I am a: Patient What is your living situation today?: I have a steady place to live Within the past 12 months, did the food you bought not last and you didn't have the money to get more?: Never true Within the past 12 months, did you worry whether your food would run out before you got money to buy more?: Never true Do you have trouble paying for medicines?: No Do you have trouble getting transportation to medical appointments?: No Do you have trouble paying your heating and electricity bill?: No Do you have trouble taking care of your child, family member or friend?: No Do you have trouble with day-to-day activities such as bathing, preparing meals, shopping, managing finances, etc.?: No Are you currently unemployed and looking for a job?: No Are you interested in more education?: No Please select the resources that you would like help with: None Currently or been in a relationship where the following occur: No concerns reported THRIVE Score: 0 AUDIT C Alcohol Use Questionnaire (AUDIT-C) 1. How often do you have a drink containing alcohol?: Never 3. How often do you have six or more drinks on one occasion?: Never Total Score: 0 Score Reviewed/Action Taken: Yes TANJA-7 AMB Questionnaire TANJA-7 Date TANJA - 7 assessed: 10/15/24 Feeling nervous, anxious, or on edge: 0 = Not at all Not being able to stop or control worryin = Not at all Worrying too much about different things: 0 = Not at all Trouble relaxin = Not at all Being so restless that it is hard to sit still: 0 = Not at all Becoming easily annoyed or irritable: 0 = Not at all Feeling afraid as if something awful might happen: 0 = Not at all Total TANJA-7 score (0-4 normal; 5-9 mild; 10-14 moderate; 15-21 severe): 0 Source: Developed by Drs. Bud Crystal, Thais Oliver, Rock Walter and colleagues, with an educational nguyen from [employer]. Review of Systems Const Details: Denies chills, Denies fatigue, Denies fever(s), Denies headache(s) and Denies weakness HEENT Denies change in vision, Denies dizziness, Denies headache(s), Denies hearing loss, Denies nasal congestion, Denies sinus pain, Denies sinus pressure and Denies sore throat Card +recurrent chest pains (reports that it has been duller since stopping PPI and H2 albert), Denies lightheadedness, Denies dyspnea and Denies other (palpitations) Resp Denies cough, Denies dyspnea and Denies wheezing GI + intermittent abdominal pain, Denies melena, Denies hematochezia, Denies change in bowel habits, +dyspepsia)( recurrent and Denies nausea Denies hematuria and Denies dysuria Physical exam (Primary Care) Tobacco/Smoking Status: Tobacco use Status Tobacco use date assessed 09/20/24 10/15/24 09:33 Patient Tobacco Use Status Never used Tobacco 10/15/24 09:33 e-Cigarette/Vaping Use Never Used 10/15/24 09:33 PHQ-9: PHQ-9 Score PHQ-9: Total score 0 10/15/24 10:00 Depression Screening Interpretation: Negative Thrive Assessment: Date of Thrive Assessment Date Thrive assessed 10/15/24 10/15/24 09:33 Currently or been in a relationship where the following occur: No concerns reported Const Other: General: no acute distress, well developed, alert and awake Nutritional Appearance: well nourished Orientation/consciousness: patient oriented x3 HENMT Head: Yes normocephalic and Yes atraumatic Eyes Pupils: Equal, round and reactive pupils present and Pupil accommodation reflex normal EOM: EOMs intact bilaterally Neck Neck: Yes normal visual inspection, Yes no lymphadenopathy and Yes trachea midline Thyroid: Thyroid normal Carotids: no bruits Lymphatic: no lymphadenopathy noted Resp Effort & Inspection: normal respiratory effort Auscultation: clear to auscultation bilaterally Cardio Rate: regular rate Rhythm: regular rhythm Heart sounds: S1 normal heart sound present, S2 normal heart sound present, no gallops, no murmurs and no rubs GI Palpation (GI): minimal epigastric pain with light palpation Auscultation: normal bowel sounds General: Yes no CVA tenderness Coding Level of Care Code Est Pt Level 4 (93780) Diagnoses Other chest pain R07.89 Chest pain type: other chest pain Epigastric pain R10.13 Time Spent (min) 38 Assessment & Plan Assessment & Plan (1) Chest pain: Code(s): R07.9 - Chest pain, unspecified Category: Medical Qualifiers: Chest pain type: other chest pain Qualified Code(s): R07.89 - Other chest pain Plan: The patient went to the ER for chest pain. EKG and chest xray was negative. The patient has visited the ER for about 5 times for similar complaints. The patient had a Stress test done in 07/05 with some atypical concerns, but was ruled to be stable. Will refer the patient back to cardiology to see if they think it is necessary to redo the stress test. (2) Epigastric pain: Code(s): R10.13 - Epigastric pain Category: Medical Plan: The patient is followed by GI, there was a concern of erosive gastritis. The patient was placed on PPI and H2 albert. The patient thinks that heR stomach pain as increased since staring the new treatments. She stopped all the medications and reports that the pain has decreased since. The patient has an appt 11/04/24 with GI-discussed with patient that she should keep this appt. In the meantime avoid the triggering foods and refrain from eating close to bedtime. Orders: Referrals Cardiology Referral R07.89 - Other chest pain Medications: Changed From albuterol sulfate 90 mcg/actuation (ProAir HFA) 2 puffs inhalation Q4-6H PRN 8.5 grams 0RF shortness of breath or wheezing To albuterol sulfate 90 mcg/actuation 2 puffs inhalation Q4-6H PRN 8.5 grams 0RF shortness of breath or wheezing
== END 2024-10-15 10:36 | disposition home or self-care (01) ==
PROVIDERS: PCP Internal Medicine
DX: R07.89 Other chest pain (principal); R10.13 Epigastric pain

== ENCOUNTER → 2024-10-15 09:21 | Outpatient (BNVA) | payer BC, SELFPAY | PROVIDERS: PCP Internal Medicine ==

== ENCOUNTER 2024-10-31 12:45 | Outpatient (REF) | payer BC, SELFPAY | END 2024-10-31 12:46 | disposition home or self-care (01) | LOC: HO.LAB 12:45 | PROVIDERS: PCP Internal Medicine; Visit Provider Nurse Practitioner Family | DX: Z13.89 Encounter for screening for other disorder (principal) ==

== ENCOUNTER 2024-11-01 10:38 | Outpatient (REF) | payer BC, SELFPAY | END 2024-11-01 10:39 | disposition home or self-care (01) | LOC: HO.LNP 10:38 | PROVIDERS: Visit Provider Nurse Practitioner Family | DX: K21.9 Gastro-esophageal reflux disease without esophagitis (principal) | CPT/HCPCS: 87338 ==

== ENCOUNTER 2024-11-04 09:14 | Outpatient (AMB) | payer BC, SELFPAY ==
[2024-11-04 09:21] VITALS: BP 122/60; PULSE 56; O2SAT 99; BMI 31.4
--- NOTE | 2024-11-04 09:21 | A.OFFVIS_ITS ---
Vital Signs 11/04/24 09:21 Height 5 ft 3 in Weight 177 lb BMI 31.4 BP 122/60 Blood Pressure Location Rt brachial Position Sitting Pulse 56 Pulse Source Pulse Oximeter Pulse Oximetry (%) 99 Oxygen Delivery Method Room Air Intake Visit Reasons: 2 monts f/u Intake Note: ESTABLISHED PATIENT - REMINDED OF OS LAB ORDER VIA [id number] 10/31. Mgmt of GERD + abd pain. Chief Complaint; Pt reports sx are well controlled currently despite not taking any medication. No concerns at this time. Truck Engine Technician Required: Yes Truck Engine Technician Services: Truck Engine Technician Offered & Declined Accompanied by: Significant Other Allergies latex Allergy (Mild, Verified 11/04/24 09:21) Rash Iodinated Contrast Media [IV CONTRAST] Allergy (Unknown, Verified 11/04/24 09:21) HIVES Milk Containing Products (Dairy) Allergy (Verified 11/04/24 09:21) Unknown peanut Allergy (Verified 11/04/24 09:21) Anaphylaxis shellfish derived Allergy (Verified 11/04/24 09:21) Unknown diphenhydramine [From BENADRYL] Adverse Reaction (Unknown, Verified 11/04/24 09:21) Chest Pain HPI HPI 2 monts f/u: Details: LAST VISIT: 09/03/2024 Colon cancer screening Epigastric pain Erosive gastritis GERD (gastroesophageal reflux disease) Plan Will check H pylori, transglutaminase, liver profile and lipase. Change PPI to Nexium. Famotidine at bedtime. Avoid dietary triggers and late night snacking. Staying upright for minimum 3 hours after meals discussed patient. Patient reports that bowels well without any issues. Patient will call us if she will continue to have symptoms. Return in 2 months to discuss going for colonoscopy and upper endoscopy. Message sent to surgical schedulers to book procedure. Will order prep next visit. Patient is agreeable to plan of care and verbalizes un derstanding of instructions. She was given the opportunity to ask questions and all questions answered. ? Thank you for allowing me to participate in her care Orders Orders Lipase Today R10.9 Liver Panel Today R74.01 H pylori Ag Stool Today K21.9 Transglutaminase IgA Today R10.9 Medications New esomeprazole magnesium (Nexium) 40 mg PO DAILY 30 caps 5RF K21.9 Changed Changed From famotidine 40 mg PO BID 30 days 60 tabs 2RF K29.60 Changed To famotidine 40 mg PO BEDTIME 30 days 30 tabs 2RF K29.60 Discontinued pantoprazole Discontinued Reason: Doctor's Order 40 mg PO DAILY 90 days 90 tabs 1RF K29.60 sucralfate Take TID with meals Discontinued Reason: Doctor's Order 1 g PO TID 30 days 90 tabs 2RF K29.60 TODAY'S VISIT Patient is here today for follow-up, discuss prep and follow-up after ED visit. Patient has some in August, H pylori testing ordered. Test came back negative, however patient reports that she was put on antibiotics for H pylori by her PCP. Patient started the antibiotics on September 20 and end up going to ED on September 22 with severe epigastric pain. Patient was taking the antibiotics, however she stopped as again her symptoms were getting worse. Patient reports to have epigastric pain and chest pain seen in the ER 2 more times after this in September. Her cardiac workup was completely negative, however patient was seen by midlevel provider in PCP's office and was referred to see Cardiology. Patient has appointment with them in December. Today patient reports that she is feeling fairly well now. Patient was placed on sucralfate which she took, however now she feels better stopped taking esomeprazole and famotidine and states that she is not having any symptoms. Patient reports that she is moving her bowels well without any issues. Patient is trying to avoid dietary triggers. Patient denies any dyspepsia, dysphagia or odynophagia. [facility] Medical History (Updated 11/04/24 @ 09:47 by Fidelina Gant BOTTOM SCRUBBER-) Erosive gastritis Vitamin D deficiency Obesity (BMI 30-39.9) Nocturnal leg cramps Surgical History History of tubal ligation Previous section Family History Mother No problems noted. 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 Cognitive needs: No Hearing needs: No Vision needs: No Review of Systems Const Denies weight gain and Denies weight loss ENT Reports no additional complaints, Denies dysphagia and Denies odynophagia Card Reports no additional complaints Resp Reports no additional complaints GI Denies abdominal pain, Denies belching, Denies melena, Denies bloating, Denies change in bowel habits, Denies dysphagia, Denies excessive flatus, Denies dyspepsia, Denies heartburn, Denies diarrhea, Denies loose stools, Denies nausea, Denies odynophagia and Denies vomiting Musc Reports no additional complaints Neuro Reports no additional complaints Psych Reports no additional complaints Endo Reports no additional complaints Physical Exam Vital Signs: Last Vital Signs Pulse 56 11/04/24 09:21 BP 122/60 11/04/24 09:21 Pulse Ox 99 11/04/24 09:21 Oxygen Delivery Method Room Air 11/04/24 09:21 BMI result Body Mass Index 31.4 Const General: healthy appearing, no acute distress and well developed Nutritional Appearance: well nourished Orientation/consciousness: patient oriented x3 Resp Effort & Inspection: normal respiratory effort, able to speak in complete sentences, no tracheal deviation and symmetric chest movement Auscultation: clear to auscultation bilaterally Cardio Rate: regular rate GI Inspection: Yes normal to inspection and No distended Palpation (GI): Soft to palpation, not firm, nontender and No hepatosplenomegaly present Auscultation: normal bowel sounds General: Yes no CVA tenderness Back/Spine/Pelvis Back: no CVA tenderness Skin General skin exam: elasticity normal, turgor normal and dry skin Neuro General: patient oriented x3 Psych Appearance: grossly normal Mental Status: mental status grossly normal Assessment & Plan Assessment & Plan (1) Colon cancer screening: Code(s): Z12.11 - Encounter for screening for malignant neoplasm of colon Category: Medical (2) Epigastric pain: Code(s): R10.13 - Epigastric pain Category: Medical (3) GERD (gastroesophageal reflux disease): Code(s): K21.9 - Gastro-esophageal reflux disease without esophagitis Qualifiers: Esophagitis presence: esophagitis presence not specified Qualified Code(s): K21.9 - Gastro-esophageal reflux disease without esophagitis Plan Patient will be booked for upper endoscopy and colonoscopy. She is seeing Cardiology on December 18. Will follow-up with me 2 weeks before her procedure to make sure that we will re-evaluate her symptoms and go over the prep. Patient was encouraged to call our office if she will have any GI concerning symptoms. Okay to take Pepcid as needed, however patient was encouraged to start taking her Nexium as soon as the reflux is back. Patient was encouraged to avoid dietary triggers and late night snacking. Staying upright for minimum 3 hours after meals discussed with patient. Both patient and her are agreeable to plan of care and verbalizes understanding of instructions. They were given the opportunity to ask questions and all questions answered. Thank you for allowing me to participate in her care Coding Level of Care Code Est Pt Level 4 (06941) Complex EM visit Add On G2211 Diagnoses Colon cancer screening Z12.11 Epigastric pain R10.13 Gastroesophageal reflux disease, unspecified whether esophagitis present K21.9 Esophagitis presence: esophagitis presence not specified Time Spent (min) 45 Comment 25 minutes spent with patient and additional 20 minutes spent reviewing her records
== END 2024-11-04 12:01 | disposition home or self-care (01) ==
PROVIDERS: PCP Internal Medicine; Visit Provider Nurse Practitioner Family
DX: R10.13 Epigastric pain (principal); K21.9 Gastro-esophageal reflux disease without esophagitis
CPT/HCPCS: 99214

== ENCOUNTER → 2024-11-04 09:14 | Outpatient (BNVA) | payer BC, SELFPAY | PROVIDERS: PCP Internal Medicine; Visit Provider Nurse Practitioner Family ==

== ENCOUNTER 2024-11-11 09:42 | Outpatient (REF) | payer BC, SELFPAY ==
[2024-11-12 11:12] LABS: H Pylori Breath Test Negative (Negative)
== END 2024-11-11 09:43 | disposition home or self-care (01) ==
LOC: HO.LNP 09:42
PROVIDERS: PCP Internal Medicine; Visit Provider Nurse Practitioner Family
DX: K21.9 Gastro-esophageal reflux disease without esophagitis (principal)
CPT/HCPCS: 83013

== ENCOUNTER 2024-11-28 10:18 | Outpatient (AMB) | payer BC, SELFPAY ==
[2024-11-28 10:24] VITALS: BP 114/76; BMI 31.0
--- NOTE | 2024-11-28 10:24 | A.OFFVIS_ITS ---
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 do not reschedule Intake Note: last pap 8 yrs ago normal hx per pt Doni Aviation Survival Technician Required: Yes Aviation Survival Technician Services: Aviation Survival Technician Present Aviation Survival Technician Name: Doni Spouse Information Interpreted: non-clinical & clinical Letter Carrier: Letter Carrier Present (Malena) Accompanied by: Spouse Allergies latex Allergy (Mild, Verified 11/28/24 10:24) Rash Iodinated Contrast Media [IV CONTRAST] Allergy (Unknown, Verified 11/28/24 10:24) HIVES Milk Containing Products (Dairy) Allergy (Verified 11/28/24 10:24) Unknown peanut Allergy (Verified 11/28/24 10:24) Anaphylaxis shellfish derived Allergy (Verified 11/28/24 10:24) Unknown diphenhydramine [From BENADRYL] Adverse Reaction (Unknown, Verified 11/28/24 10:24) Chest Pain Is last menstrual period known: Yes Last menstrual period: 11/17/24 HPI Comments Details: She is a premenopausal woman presenting for her new patient annual examination accompanied by her , Doni, she request to interpret for her, signed refusal for alterations expert services complete. Doing well with rehabilitation worker concerns: itching x 2 wks. Hx. of antibiotic use. Regular monthly menses, ending of cycle now. History of tubal ligation. Currently is sexually active. STI screening offered; she accepts. She tries to eat healthy, has food allergies, and stays active with exercise- walks. Denies family history of breast, ovarian or colon cancer. Last pap smear approximately 8 years ago, negative. Mammogram: Several years ago. [facility] Medical History Vaginal itching Erosive gastritis Vitamin D deficiency Obesity (BMI 30-39.9) Nocturnal leg cramps Surgical History History of tubal ligation Previous section Family History Mother No problems noted. 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 Cognitive needs: No Hearing needs: No Vision needs: No Female Reproductive History Menstrual Duration of menses: 3-5 days Date of last menstrual period: 11/17/24 control method: permanent sterilization Permanent Sterilization: BTL Total pregnancies: 3 Full term: 2 Number of Living Children: 2 Ab spontaneous: 1 Review of Systems Const All systems reviewed & are unremarkable except as noted in HPI and below Reports as per HPI Eyes Reports no additional complaints ENT Reports no additional complaints Card Reports no additional complaints Resp Reports no additional complaints GI Reports as per HPI and Reports no additional complaints Reports as per HPI Musc Reports no additional complaints Skin/Breast Reports as per HPI Neuro Reports no additional complaints Psych Reports no additional complaints Endo Reports no additional complaints Doni/Lymph Reports no additional complaints Aller/Immun Reports no additional complaints Physical Exam Vital Signs: Last Vital Signs BP 114/76 11/28/24 10:24 BMI result Body Mass Index 31.0 Const General: cooperative, healthy appearing, no acute distress, well developed and alert Orientation/consciousness: patient oriented x3 HEENT Head: Yes normal to inspection Eyes General: appearance normal, both eyes and all related structures Neck Neck: Yes normal visual inspection Thyroid: Thyroid normal Chest Chest palpation & inspection: normal inspection of the chest and other (no puckering, dimpling, peau de orange, retraction, discharge, masses) Breast/axilla inspection: normal inspection of the breasts Breast/axilla palpation: normal palpation of the breasts Resp Effort & Inspection: normal respiratory effort GI Inspection: Yes scar Palpation (GI): Soft to palpation Rectal Exam - Female: deferred General: Yes bladder normal to palpation External Female Exam: normal external appearance and normal appearance of the urethra Speculum Exam - Vagina: normal palpation and vaginal bleeding Speculum Exam - Cervix: normal appearance of the cervix and normal palpation Bimanual exam- vagina & uterus: normal bimanual exam, normal palpation, uterine size normal, bladder normal to palpation, normal palpation and non-tender Bimanual Exam- Adnexa, other: no masses OB/external & speculum: vaginal bleeding Skin General skin exam: no rashes or lesions noted Rashes: no rashes Neuro General: patient oriented x3 Cognition (Neuro): normal cognition Extrem General: Yes normal to inspection Psych Attitude: cooperative Thought process: Normal thought process present Assessment & Plan Assessment & Plan (1) Encounter for well woman exam with routine gynecological exam: Code(s): Z01.419 - Encounter for gynecological examination (general) (routine) without abnormal findings Category: Medical (2) Vaginal itching: Code(s): N89.8 - Other specified noninflammatory disorders of vagina Category: Medical Plan: BV panel and GC chlamydia obtained. Await results for plan of care. Discussed skin care. Rx for external itching sent to pharmacy. The patient expressed understanding and agreement with the plan of care. All of her questions and concerns were addressed to the best of my ability. Plan Discussed: Current recommendations for pap smears per ASCCP guidelines. Pap obtained. Breast awareness and periodic breast exams. Mammogram yearly. Mammogram ordered. Maintain a healthy lifestyle including a well balanced diet and routine exercise. Menopause verses perimenopause. Menopause is definitive of 1 year of no menses or 12 months in succession. Report any abnormal uterine bleeding in example prolonged episodes, or short intervals less than 24 days. Monitor menstrual cycles, report any unscheduled bleeding, bleeding episodes <24 days apart or heavy/prolonged menstrual bleeding. Call the office for a follow up for any concerns. Patient verbalizes understanding and agrees to the plan of care. She was given opportunity to ask questions and all questions were answered to the best of my ability. RTO in one year for annual rehabilitation worker examination. This note is constructed using voice recognition software. While every effort has been made to ensure accuracy, retail buyer errors may have been included. Orders: Orders Bacterial Vaginosis Panel Today N89.8 - Other specified noninflammatory disorders of vagina MM tomosynthesis screening BI Today Z12.31 - Encounter for screening mammogram for malignant neoplasm of breast CT NG by PCR Today N89.8 - Other specified noninflammatory disorders of vagina HPV High risk Today Z.419 - Encounter for gynecological examination (general) (routine) without abnormal findings Pap Smear Today Z419 - Encounter for gynecological examination (general) (routine) without abnormal findings Medications: New clotrimazole-betamethasone 1-0.05 % apply externally a thin coat to the area 1 appl topical BID 7 days 45 grams 0RF itching Coding Level of Care Code New Pt Prev Care 40-64y(56135) Diagnoses Encounter for well woman exam with routine gynecological exam Z01.419 Vaginal itching N89.8
== END 2024-11-28 11:30 | disposition home or self-care (01) ==
LOC: HO.HWSW 10:19
PROVIDERS: PCP Internal Medicine; Visit Provider Advanced Practice Midwife
DX: Z01.419 Encounter for gynecological examination (general) (routine) without abnormal findings (principal); N89.8 Other specified noninflammatory disorders of vagina
CPT/HCPCS: 99386; 99459

== ENCOUNTER 2024-11-28 10:18 | Outpatient (REF) | payer BC, SELFPAY | END 2024-11-28 10:19 | disposition home or self-care (01) | LOC: HO.LAB 10:18 | PROVIDERS: PCP Internal Medicine; Visit Provider Advanced Practice Midwife | DX: Z13.89 Encounter for screening for other disorder (principal) ==

== ENCOUNTER 2024-11-28 10:52 | Outpatient (REF) | payer BC, SELFPAY ==
[2024-11-29 13:55] LABS: CT PCR NOT DETECTED (Not Detect.); NG PCR NOT DETECTED (Not Detect.)
[2024-11-29 16:53] LABS: Bacterial Vaginosis PCR NEGATIVE (Negative); Candida Group PCR NOT DETECTED (Not Detect); Candida glab krusei PCR NOT DETECTED (Not Detect); Trichomonas vaginalis PCR NOT DETECTED (Not Detect)
[2024-12-05 14:05] LABS: HPV Genotype 16 Negative (Negative); HPV Genotype 18 Negative (Negative); HPV High Risk Negative (Negative)
== END 2024-11-28 10:53 | disposition home or self-care (01) ==
LOC: HO.LNP 10:52
PROVIDERS: Visit Provider Advanced Practice Midwife
DX: N89.8 Other specified noninflammatory disorders of vagina (principal); Z01.419 Encounter for gynecological examination (general) (routine) without abnormal findings
CPT/HCPCS: 81515; 87491; 87591; 87626; 88175

== ENCOUNTER 2024-12-18 13:47 | Outpatient (AMB) | payer BC, SELFPAY ==
--- NOTE | 2024-12-18 13:51 | MHC.OFFVIS ---
Vital Signs 12/18/24 13:52 Height 5 ft 3 in Weight 171 lb 15.369 oz BMI 30.5 BP 110/60 Blood Pressure Location Lt brachial Position Sitting Pulse 65 Pulse Source Pulse Oximeter Intake Visit Reasons: 06/23/22 f/u req dr. syed/aditya/svetlana [employer] Parts Data Writer Required: Yes Parts Data Writer Services: Parts Data Writer Offered & Declined Accompanied by: Spouse Allergies latex Allergy (Mild, Verified 11/28/24 10:24) Rash Iodinated Contrast Media [IV CONTRAST] Allergy (Unknown, Verified 11/28/24 10:24) HIVES Milk Containing Products (Dairy) Allergy (Verified 11/28/24 10:24) Unknown peanut Allergy (Verified 11/28/24 10:24) Anaphylaxis shellfish derived Allergy (Verified 11/28/24 10:24) Unknown diphenhydramine [From BENADRYL] Adverse Reaction (Unknown, Verified 11/28/24 10:24) Chest Pain Medication List - Last Reconciled 12/18/24 by Cecil Schuster MD acetaminophen 500 mg PO Q6H PRN albuterol sulfate 90 mcg/actuation 2 puffs inhalation Q4-6H PRN epinephrine IM DAILY HPI Comments Details: Tram is here for follow-up regarding chest pain. She was last seen in 2021. At that time, she underwent stress testing which had shown normal perfusion. She continues to have chest pains at different times. Lot of times, this can happen when she is resting. Sometimes during activity. Essentially any time. Feels like sharp pains extra. She does not have any known coronary disease, myocardial infarction or cardiomyopathy. It seems that she needs to go for EGD/colonoscopy. [facility] Medical History Vaginal itching Erosive gastritis Vitamin D deficiency Obesity (BMI 30-39.9) Nocturnal leg cramps Surgical History History of tubal ligation Previous section Family History Mother No problems noted. 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 Cognitive needs: No Hearing needs: No Vision needs: No Review of Systems Const Denies weakness ENT Denies dizziness Card Denies chest pain, Denies chest pain with activity, Denies syncope, Denies rapid heart rate, Denies pedal edema, Denies edema, Denies leg edema, Denies lightheadedness, Denies palpitations, Denies dyspnea, Denies dyspnea on exertion and Denies orthopnea Resp Denies cough, Denies dyspnea and Denies dyspnea on exertion GI Denies hematochezia and Denies change in stool character Musc Denies abnormal gait, Denies muscle cramps, Denies muscle weakness, Denies numbness, Denies radiating pain into limb and Denies tingling Neuro Denies abnormal gait, Denies dizziness, Denies syncope, Denies numbness, Denies tingling and Denies weakness Endo Denies palpitations Physical Exam Vital Signs: Last Vital Signs Pulse 65 12/18/24 13:52 BP 110/60 12/18/24 13:52 BMI result Body Mass Index 30.5 Const General: comfortable and no acute distress Orientation/consciousness: patient oriented x3 HEENT Other: Unremarkable Head: Yes normal to inspection Neck Neck: Yes normal visual inspection Chest Chest palpation & inspection: normal inspection of the chest Resp Auscultation: clear to auscultation bilaterally Cardio Palpation: normal PMI Heart sounds: S1 normal heart sound present, S2 normal heart sound present, no gallops, no murmurs and no rubs GI Palpation (GI): Soft to palpation Back/Spine/Pelvis Other: unremarkable Skin General skin exam: no rashes or lesions noted Neuro General: patient oriented x3 Extrem General: Yes normal to inspection Psych Mental Status: mental status grossly normal Assessment & Plan Assessment & Plan (1) Precordial chest pain: Code(s): R07.2 - Precordial pain Category: Medical (2) Preoperative cardiovascular examination: Code(s): Z01.810 - Encounter for preprocedural cardiovascular examination Category: Medical Plan EKGs reviewed. In the most recent EKG, underlying sinus rhythm with nonspecific ST-T changes in anterior leads. In the EKGs going back over almost 10 years, some of the EKGs show ST-depression but others are unremarkable. High sensitivity troponins have been done about 7 times in the last 2 years and they are all normal. Lexiscan Myocardial perfusion imaging study from 2021 was unremarkable. Prior to that, she had an exercise stress test where she had reported chest pain with EKG changes. Overall, atypical sounding chest pains, nonspecific findings on the EKG, negative enzymes. Not clear if she has any vasospasm type picture or endothelial dysfunction. Less likely that she has obstructive CAD. Noncardiac pain is also certainly possible and may very well be the case. We discussed about other modalities including coronary CTA. Listed to have hives but states that she had much more severe reaction during the actual test. Hence we will try to do an exercise stress echocardiogram for further evaluation. If this is unremarkable, then mainly reassurance. Potentially could try sublingual nitroglycerin as needed. Orders: Orders CA echo transthoracic complete Today R07.2 - Precordial pain CA echo stress exercise Today R07.2 - Precordial pain Coding Level of Care Code Est Pt Level 4 (73868) Complex EM visit Add On G2211 Diagnoses Precordial chest pain R07.2 Preoperative cardiovascular examination Z01.810
[2024-12-18 13:52] VITALS: BP 110/60; PULSE 65; BMI 30.5
== END 2024-12-18 14:18 | disposition home or self-care (01) ==
LOC: HO.HCS 13:47
PROVIDERS: PCP Internal Medicine; Visit Provider Internal Medicine
DX: R07.2 Precordial pain (principal); Z01.810 Encounter for preprocedural cardiovascular examination
CPT/HCPCS: 99214

== ENCOUNTER 2024-12-18 15:24 | Outpatient (AMB) | payer BC, SELFPAY ==
--- NOTE | 2024-12-18 15:25 | A.OFFVIS_ITS ---
Vital Signs 12/18/24 15:26 Height 5 ft 3 in Weight 171 lb BMI 30.3 BP 130/60 Blood Pressure Location Lt brachial Position Sitting Pulse 54 Pulse Source Pulse Oximeter Pulse Oximetry (%) 100 Oxygen Delivery Method Room Air Intake Visit Reasons: Pre op per Varsha Intake Note: ESTABLISHED PATIENT for GERD mgmt and pre op appt. Procedure scheduled for 01/01 Chief Complaint; Intermittent severity with GERD, no tx currently; pt never restarted PPI after completing H Pylori testing. Pt reports epigastric pain and burning. Pt denies dysphagia or any additional sx or concerns. Cost Accountant Required: Yes Cost Accountant Services: Cost Accountant Offered & Declined Information Interpreted: non-clinical & clinical Accompanied by: Significant Other Allergies latex Allergy (Mild, Verified 12/18/24 15:29) Rash Iodinated Contrast Media [IV CONTRAST] Allergy (Unknown, Verified 12/18/24 15:29) HIVES Milk Containing Products (Dairy) Allergy (Verified 12/18/24 15:29) Unknown peanut Allergy (Verified 12/18/24 15:29) Anaphylaxis shellfish derived Allergy (Verified 12/18/24 15:29) Unknown diphenhydramine [From BENADRYL] Adverse Reaction (Unknown, Verified 12/18/24 15:29) Chest Pain HPI HPI Pre op per Varsha: Details: LAST VISIT: Colon cancer screening Epigastric pain GERD (gastroesophageal reflux disease) Plan Patient will be booked for upper endoscopy and colonoscopy. She is seeing Cardiology on December 18. Will follow-up with me 2 weeks before her procedure to make sure that we will re-evaluate her symptoms and go over the prep. Patient was encouraged to call our office if she will have any GI concerning symptoms. Okay to take Pepcid as needed, however patient was encouraged to start taking her Nexium as soon as the reflux is back. Patient was encouraged to avoid dietary triggers and late night snacking. Staying upright for minimum 3 hours after meals discussed with patient. Both patient and her are agreeable to plan of care and verbalizes understanding of instructions. They were given the opportunity to ask questions and all questions answered. ? Thank you for allowing me to participate in her care TODAY'S VISIT Patient is here today for follow-up and to discuss going for colonoscopy and upper endoscopy. Patient had cardiology appointment today echo and stress echo was ordered before patient can be clear. Patient reports that she still has epigastric pain. Currently is not taking any PPI or H2 blockers. Patient states that she had pain when she was taking PPI tried couple different ones. H pylori retested and was negative. Patient denies melena, hematochezia, uninten tional weight loss or ribbon like stools. Patient reports occasional dyspepsia without dysphagia or odynophagia. Patient denies any issues with anesthesia in the past. No history of sleep apnea. She continues to have shortness of breath and chest pain. Patient reports that sometimes the chest pain was without exertion. Patient is not on any anticoagulation medication. Patient denies any infectious diseases in the past or present. [facility] Medical History Vaginal itching Erosive gastritis Vitamin D deficiency Obesity (BMI 30-39.9) Nocturnal leg cramps Surgical History History of tubal ligation Previous section Family History Mother No problems noted. 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 Cognitive needs: No Hearing needs: No Vision needs: No Review of Systems Const Denies weight gain and Denies weight loss ENT Reports no additional complaints, Denies dysphagia and Denies odynophagia Card Reports no additional complaints Resp Reports no additional complaints GI Denies abdominal pain, Denies belching, Denies melena, Denies bloating, Denies change in bowel habits, Denies dysphagia, Denies excessive flatus, Denies dyspepsia, Reports heartburn (Occasional), Denies diarrhea, Denies loose stools, Denies nausea, Denies odynophagia and Denies vomiting Musc Reports no additional complaints Neuro Reports no additional complaints Psych Reports no additional complaints Endo Reports no additional complaints Physical Exam Vital Signs: Last Vital Signs Pulse 54 12/18/24 15:26 BP 130/60 12/18/24 15:26 Pulse Ox 100 12/18/24 15:26 Oxygen Delivery Method Room Air 12/18/24 15:26 BMI result Body Mass Index 30.3 Const General: healthy appearing and no acute distress Nutritional Appearance: well nourished and obese Orientation/consciousness: patient oriented x3 Resp Effort & Inspection: normal respiratory effort, able to speak in complete sentences, no tracheal deviation and symmetric chest movement Auscultation: clear to auscultation bilaterally Cardio Rate: regular rate GI Inspection: Yes normal to inspection, No distended and Yes obesity Palpation (GI): Soft to palpation, not firm, nontender and No hepatosplenomegaly present Auscultation: normal bowel sounds General: Yes no CVA tenderness Back/Spine/Pelvis Back: no CVA tenderness Skin General skin exam: elasticity normal, turgor normal and dry skin Neuro General: patient oriented x3 Psych Appearance: grossly normal Mental Status: mental status grossly normal Assessment & Plan Assessment & Plan (1) Colon cancer screening: Code(s): Z12.11 - Encounter for screening for malignant neoplasm of colon Category: Medical (2) Epigastric pain: Code(s): R10.13 - Epigastric pain Category: Medical (3) GERD (gastroesophageal reflux disease): Code(s): K21.9 - Gastro-esophageal reflux disease without esophagitis Qualifiers: Esophagitis presence: esophagitis presence not specified Qualified Code(s): K21.9 - Gastro-esophageal reflux disease without esophagitis (4) History of Helicobacter pylori infection: Code(s): Z86.19 - Personal history of other infectious and parasitic diseases (5) Postprandial abdominal bloating: Code(s): R14.0 - Abdominal distension (gaseous) Plan Patient has seen her pairing machine operator today. Echo and stress echo was ordered for her. Patient reports that pairing machine operator will try to set up something within the next week so she can have results read before going for procedure. Her procedure scheduled for the 21st of this month. What to expect before during and after procedure discussed with patient. Stressed the importance of good bowel prep and clear liquid diet day before procedure. Patient can start taking famotidine daily. Continue avoiding dietary triggers and late night snacking. Increase fluid intake and activity to promote better bowel motility. I will see her after the procedure, sooner on as needed basis. She is agreeable to this plan and verbalizes understanding of instructions. She was given the opportunity to ask questions and all questions answered. Thank you for allowing me to participate in her care Medications: New famotidine (Pepcid) 20 mg PO DAILY 30 tabs 3RF K21.9 - Gastro-esophageal reflux disease without esophagitis bisacodyl (Dulcolax (bisacodyl)) take 4 tabs at noon the day before your colonoscopy 20 mg (4 x 5 mg) PO ONCE 4 tabs 0RF 1 day Z12.11 - Encounter for screening for malignant neoplasm of colon polyethylene glycol 3350 (Miralax) As directed by gastroenterology department at [facility] 238 grams PO ONCE 238 grams 0RF Z12.11 - Encounter for screening for malignant neoplasm of colon Coding Level of Care Code Est Pt Level 4 (46314) Complex EM visit Add On G2211 Diagnoses Colon cancer screening Z12.11 Epigastric pain R10.13 Gastroesophageal reflux disease, unspecified whether esophagitis present K21.9 Esophagitis presence: esophagitis presence not specified History of Helicobacter pylori infection Z86.19 Postprandial abdominal bloating R14.0 Time Spent (min) 35 Comment 25 minutes spent with patient and additional 10 minutes spent reviewing her records
[2024-12-18 15:26] VITALS: BP 130/60; PULSE 54; O2SAT 100; BMI 30.3
== END 2024-12-18 16:06 | disposition home or self-care (01) ==
LOC: HO.HGI 15:25
PROVIDERS: PCP Internal Medicine; Visit Provider Nurse Practitioner Family
DX: Z01.818 Encounter for other preprocedural examination (principal); Z12.11 Encounter for screening for malignant neoplasm of colon; K21.9 Gastro-esophageal reflux disease without esophagitis; Z86.19 Personal history of other infectious and parasitic diseases; R14.0 Abdominal distension (gaseous)
CPT/HCPCS: 99212

== ENCOUNTER → 2025-01-01 12:44 | Outpatient (REF) | payer BC, SELFPAY ==
--- NOTE | 2025-01-01 12:49 | CA_ITS ---
Transthoracic Echocardiogram Patient (Last, First, Middle): Tram Edge J Gender: Female Date of : 1980 Age: 44 Procedure Date: 01/01/2025 Procedure Type: Transthoracic Echocardiogram Location: OP Height: 160.02 cm Weight: 77.57 kg BSA: 1.81 m2 Heart Rate: 63 bpm BP: 110 / 80 mmHg Pediatric Genetic Counselor: SB/RC Referring MD: Cecil Schuster MD Hearing Aid Mechanic: Demond Dasilva MD Symptoms: R07.2 - Precordial pain Study Quality: Adequate ECG Rhythm: Sinus Conclusions: - Essentially normal study Findings Left Ventricle Normal left ventricular size, thickness, and systolic function. The visually estimated ejection fraction is between 65-70%. Spectral Doppler is indicative of a normal filling pattern. Right Ventricle Normal right ventricular cavity size and systolic function. Atria Both atria are normal in size. Interatrial shunt cannot be excluded. Aortic Valve Normal aortic valve structure and function. There is no aortic valve stenosis. There is no aortic valve regurgitation. Mitral Valve Normal mitral valve structure and function. There is no mitral valve regurgitation. There is no mitral valve stenosis. Pulmonic Valve The pulmonic valve is likely normal. There is trace pulmonic valve regurgitation. Tricuspid Valve Normal tricuspid valve structure. There is trace tricuspid valve regurgitation. The right ventricular systolic pressure is normal. The right ventricular systolic pressure is 29 mmHg. Normal right atrial pressure. There is no evidence of pulmonary hypertension. Great Vessels All visible segments of the aorta are normal in size. The pulmonary artery was not well visualized. Venous The inferior vena cava is normal in size and collapses greater than 50% with inspiration. Pericardium/Pleural There is no evidence of pericardial effusion. Prior Study Comparison No prior study available for comparison. Measurements 2D Linear Measurements IVSd: 0.85 0.6-0.9/0.6-1.0 cm LVIDd: 4.35 3.9-5.3/4.2-5.9 cm LVIDd Index: 2.40 2.4-3.2/2.2-3.1 cm/m2 LVIDs: 2.40 2.0-3.6 cm LVPWd: 0.66 0.7-1.1 cm LA Diam: 3.50 2.7-3.8/3.0-4.0 cm LAIDs Index: 1.93 1.5-2.3 cm/m2 LV Mass: 122.92 67-162/88-224 g LV Mass Index: 67.91 43-95/49-115 g/m2 LVOT Diam: 1.90 3.0+(-)1.3 cm 2D Systolic Function EF 4C: 61.90 >55% EF 2C: 70.50 >55% EF BiP: 66.90 >55% Mitral Valve MV Pk E: 1.00 MV PK A: 0.46 MV Decel Time: 199.00 E/A: 2.20 E'Lateral: 18.90 E'Medial: 11.70 E/E' Med: 8.50 E/E' Lat: 5.30 PHT: 58.00 MVA PHT: 3.79 Decel [place]: 5.04 Aortic Valve AoV Pk Presley: 1.37 AoV Pk Grad: 8.00 JANKI: 2.26 LVOT LVOT Pk Presely: 1.09 LVOT Mn Presley: 0.76 LVOT VTI: 0.22 LVOT Pk Grad: 5.00 LVOT Mn Grad: 3.00 LVOT Diam: 1.90 LVOT Area: 2.84 Diastolic Function MV Pk E: 1.00 MV Pk A: 0.46 E/A: 2.20 E'Medial: 11.70 E/E' Med: 8.50 E' Laterial: 18.90 E/E' Lat: 5.30 Right Ventricle TAPSE (mm): 29.30 Tricuspid Valve TR Pk Presley: 2.56 TR Pk Grad: 26.00 RA Press: 3.00 RVSP: 29.00 Great Vessels Aorta Sinus of Valsalva: 2.90 2.0-3.5 cm Ao Asc: 3.10 2.1-3.4 cm Pulmonary Veins Pulm Vein S/D 1.20 Pulmonary Valve PV Pk Presley: 1.06 Peak PV Grad: 4.00 Updated in Other Vendor System with Status of Final Demond Dasilva MD electronically signed on 01/02/2025 12:46:55 PM with status of Final
== END ==
LOC: HO.CARD 12:44
PROVIDERS: PCP Internal Medicine; Visit Provider Internal Medicine
DX: R07.2 Precordial pain (principal)
CPT/HCPCS: 93306

== ENCOUNTER → 2025-01-01 12:49 | Outpatient (BNV) | payer BC, SELFPAY | PROVIDERS: PCP Internal Medicine; Visit Provider Internal Medicine Cardiovascular Disease | DX: R07.2 Precordial pain (principal) | CPT/HCPCS: 93306 ==

== ENCOUNTER → 2025-01-13 12:43 | Outpatient (REF) | payer BC, SELFPAY ==
--- NOTE | 2025-01-13 13:00 | CA_ITS ---
Acquisition Time: 2025-01-13 13:00:40 Total Exercise Time: 00:08:02 Test Indications: CP,Pre-Op Evaluation Medications: ALBUTEROL INHALER Protocol: GINNY Max HR: 157 BPM 90% of Pred: 174 BPM Max BP: 132/80 mmHG Max Work Load: 10.1 METS Exercise stress test with exercise 8 mins 2 secs of Ginny Protocol, achieving 89% MPHR, with reports of SOB and 7/10 mid chest tightness, without any arrythmias, with normotensive repsonse to exercise. With ST segment changes inferiorly and anterolaterally during exercise, possibly meeting criteria for ischemia. In recovery, ST segment improved and symptoms resolved slowly. Echo images obtained by tech at rest and post peak exercise. Definity contrast utilized. Test reviewed with Dr. Schuster. Referred By: Cecil Schuster Electronically Signed By: Marshal Pablo
== END ==
LOC: HO.CARD 12:43
PROVIDERS: PCP Internal Medicine; Visit Provider Internal Medicine
DX: R07.2 Precordial pain (principal)
CPT/HCPCS: 93350; Q9957

== ENCOUNTER → 2025-01-13 13:00 | Outpatient (BNV) | payer BC, SELFPAY | PROVIDERS: PCP Internal Medicine | DX: R06.02 Shortness of breath (principal); R07.2 Precordial pain; R94.31 Abnormal electrocardiogram [ECG] [EKG] | CPT/HCPCS: 93016; 93018; 93350; 93352 ==

== ENCOUNTER 2025-01-20 11:18 | Outpatient (REF) | payer BC, SELFPAY | END 2025-01-20 11:19 | disposition home or self-care (01) | LOC: HO.MAMMO 11:18 | PROVIDERS: PCP Internal Medicine; Visit Provider Advanced Practice Midwife | DX: Z12.31 Encounter for screening mammogram for malignant neoplasm of breast (principal) | CPT/HCPCS: 77063; 77067 ==

== ENCOUNTER → 2025-01-20 11:30 | Outpatient (BNV) | payer BC, SELFPAY | PROVIDERS: PCP Internal Medicine; Visit Provider Internal Medicine | DX: Z12.31 Encounter for screening mammogram for malignant neoplasm of breast (principal) | CPT/HCPCS: 77063; 77067 ==

== ENCOUNTER 2025-01-23 13:49 | Outpatient (AMB) | payer BC, SELFPAY ==
--- NOTE | 2025-01-23 14:33 | A.OFFPC_ITS ---
Vital Signs 01/23/25 14:34 Height 5 ft 3 in Weight 176 lb BMI 31.2 BP 110/78 Blood Pressure Location Lt brachial Position Sitting Pulse 67 Pulse Source Pulse Oximeter Temp 97.3 F Temp Source Temporal Artery Scan Pulse Oximetry (%) 99 Oxygen Delivery Method Room Air Intake Visit Reasons: severe leg cramps Intake Note: Patient is here to follow up on Severe cramping in both legs and hands. As400 Administrator Required: Yes As400 Administrator Language: Botswanan Information Interpreted: non-clinical & clinical Occupational Medicine Physician: Not Required per policy Accompanied by: Self / Same As Patient Allergies latex Allergy (Mild, Verified 01/23/25 14:44) Rash Iodinated Contrast Media [IV CONTRAST] Allergy (Unknown, Verified 01/23/25 14:44) HIVES Milk Containing Products (Dairy) Allergy (Verified 01/23/25 14:44) Unknown peanut Allergy (Verified 01/23/25 14:44) Anaphylaxis shellfish derived Allergy (Verified 01/23/25 14:44) Unknown diphenhydramine [From BENADRYL] Adverse Reaction (Unknown, Verified 01/23/25 14:44) Chest Pain Medication List - Last Reconciled 01/23/25 by Mariela Riddle PA-C acetaminophen 500 mg PO Q6H PRN albuterol sulfate 90 mcg/actuation 2 puffs inhalation Q4-6H PRN bisacodyl (Dulcolax (bisacodyl)) 20 mg (4 x 5 mg) PO ONCE 1 day epinephrine IM DAILY famotidine (Pepcid) 20 mg PO DAILY polyethylene glycol 3350 (Miralax) 238 grams PO ONCE Tobacco use date assessed: 01/23/25 Dental Screening Dental Screen Date: 09/20/24 HPI severe leg cramps HPI Details The patient is a 44-year-old female presenting with bilateral hand numbness and lower back pain with radiculopathy. The bilateral hand numbness is primarily noted in the right middle fingers and is worse upon waking. She denies any history of carpal tunnel syndrome, diabetes, or neuropathy. She also denies any recent injury to the hands. The lower back pain radiates into the right lower extremity, specifically to the right lateral lower leg where her tendon overlies. She denies any calf tenderness, chest pain, shortness of breath, dizziness, weakness, confusion, drooling, or other neurological complaints. She has undergone negative carpal tunnel testing while in the office during the exam, including Prayers, Tinel's test, and phalen's test, and exhibits normal strength, sensation, and gait. The patient has been taking magnesium supplements, suspecting a deficiency, but otherwise denies any other complaints or concerns. [facility] Medical History Bilateral finger numbness Low back pain radiating to right lower extremity Numbness Vaginal itching Erosive gastritis Vitamin D deficiency Obesity (BMI 30-39.9) Nocturnal leg cramps Surgical History History of tubal ligation Previous section Family History Mother No problems noted. Father High blood pressure Sister Diabetes mellitus Social History Housing: Apartment Unable to assess alcohol history related to: Unknown Alcohol intake: never Patient Tobacco Use Status: Never used Tobacco e-Cigarette/Vaping Use: Never Used Second Hand Smoke Exposure: No service: No Current occupational status: employed Current occupation: [employer] Cognitive needs: No Hearing needs: No Vision needs: No Questionnaire PHQ-9 Over the last 2 weeks, how often have you been bothered by any of the following problems? 1. Little interest or pleasure in doing things: not at all 2. Feeling down, depressed, or hopeless: not at all 3. Trouble falling or staying asleep, or sleeping too much: not at all 4. Feeling tired or having little energy: not at all 5. Poor appetite or overeating: not at all 6. Feeling bad about yourself - or that you are a failure or have let yourself or your family down: not at all 7. Trouble concentrating on things, such as reading the newspaper or watching television: not at all 8. Moving or speaking so slowly that other people could have noticed. Or the opposite - being so fidgety or restless that you have been moving around a lot more than usual: not at all 9. Thoughts that you would be better off or of hurting yourself in some way: not at all Total score: 0 Depression Screening Interpretation: Negative Depression Screening Done: Yes 76254 - PHQ-9 Billing: Yes Source: Developed by Drs. Bud Crystal, Thais Oliver, Rock Walter and colleagues, with an educational nguyen from [employer]. Thrive Questionnaire Date Thrive assessed: 09/20/24 I am a: Patient What is your living situation today?: I choose not to answer this question Within the past 12 months, did the food you bought not last and you didn't have the money to get more?: I choose not to answer this question Within the past 12 months, did you worry whether your food would run out before you got money to buy more?: I choose not to answer this question Do you have trouble paying for medicines?: No Do you have trouble getting transportation to medical appointments?: No Do you have trouble paying your heating and electricity bill?: No Do you have trouble taking care of your child, family member or friend?: No Do you have trouble with day-to-day activities such as bathing, preparing meals, shopping, managing finances, etc.?: No Are you currently unemployed and looking for a job?: No Are you interested in more education?: No Please select the resources that you would like help with: None Currently or been in a relationship where the following occur: No concerns reported THRIVE Score: 0 AUDIT C Alcohol Use Questionnaire (AUDIT-C) 1. How often do you have a drink containing alcohol?: Never Total Score: 0 Score Reviewed/Action Taken: No TANJA-7 AMB Questionnaire TANJA-7 Date TANJA - 7 assessed: 10/15/24 Feeling nervous, anxious, or on edge: 0 = Not at all Not being able to stop or control worryin = Not at all Worrying too much about different things: 0 = Not at all Trouble relaxin = Not at all Being so restless that it is hard to sit still: 0 = Not at all Becoming easily annoyed or irritable: 0 = Not at all Feeling afraid as if something awful might happen: 0 = Not at all Total TANJA-7 score (0-4 normal; 5-9 mild; 10-14 moderate; 15-21 severe): 0 Source: Developed by Thais Saha Kurt Kroenke and colleagues, with an educational nguyen from [employer]. TANJA-7 Assessment Billing TANJA-7 Assessment Tool: TANJA-7 Assessment 04013 Review of Systems Const Details: - Neurological: Reports bilateral hand numbness, primarily in the right middle fingers, worse upon waking. Denies dizziness, weakness, confusion, or drooling. - Musculoskeletal: Reports lower back pain radiating to the right lower extremity. Denies calf tenderness. - Cardiovascular: Denies chest pain. - Respiratory: Denies shortness of breath. Physical exam (Primary Care) Vital Signs: Last Vital Signs Temp 97.3 F 01/23/25 14:34 Pulse 67 01/23/25 14:34 BP 110/78 01/23/25 14:34 Pulse Ox 99 01/23/25 14:34 Oxygen Delivery Method Room Air 01/23/25 14:34 BMI result Body Mass Index 31.2 Tobacco/Smoking Status: Tobacco use Status Tobacco use date assessed 01/23/25 01/23/25 14:40 Patient Tobacco Use Status Never used Tobacco 01/23/25 14:40 e-Cigarette/Vaping Use Never Used 01/23/25 14:40 PHQ-9: PHQ-9 Score PHQ-9: Total score 0 01/23/25 14:45 Depression Screening Interpretation: Negative Thrive Assessment: Date of Thrive Assessment Date Thrive assessed 09/20/24 01/23/25 14:40 Currently or been in a relationship where the following occur: No concerns reported Const Other: Appearance: Alert. Oriented X3. No acute distress. Head: Normal external exam. Normocephalic. Atraumatic. Eyes: Pupils are equal, round, and reactive to light. Extraocular movements intact. Conjunctiva and sclera normal. Eyelids normal. Ears: External auditory canal normal. Tympanic membranes normal. Throat: Pharynx normal. Uvula midline. Moist mucous membranes. Neck: Normal inspection. Neck supple. Full range of motion. No adenopathy. Thyroid Normal. No meningeal signs. No neck mass noted. Cardiovascular: Normal heart rate and rhythm. Heart sound normal. No murmurs noted. Pulses normal throughout. Respiratory: No respiratory distress. Painless inspiration. Breath sounds normal. No wheezes/rales/rhonchi noted. Chest nontender. No accessory muscle usage noted or decreased air movement noted. Abdomen: Soft and nontender. Bowel sounds normal in all 4 quadrants. No distention noted. No organomegaly noted. No visible injury noted. Back: No costovertebral angle tenderness. Full range of motion noted. Skin: Skin warm and dry. Normal skin color. Normal skin turgor. No rashes/lesions/lacerations noted. Extremities: No lower extremity edema. Extremities exhibit normal range of motio n. Extremities nontender. Normal strength throughout. Neuro: Oriented X 3. No motor deficit. No sensory deficit. Reflexes normal. Normal sensation throughout. Normal steady gait. Coding Level of Care Code Est Pt Level 4 (08679) Complex EM visit Add On G2211 Diagnoses Bilateral finger numbness R20.0 Low back pain radiating to right lower extremity M54.50; M79.604 Additional Codes TANJA-7 Assessment Billing - TANJA-7 Assessment Tool: TANJA-7 Assessment 10784 ([id number]) PHQ-9 - 81928 - PHQ-9 Billing: Yes ([id number]) Assessment & Plan Assessment & Plan (1) Bilateral finger numbness: Code(s): R20.0 - Anesthesia of skin Category: Medical Plan: The patient will undergo outpatient blood work to assess enzyme levels and rule out diabetes. Imaging studies including x-rays of bilateral hands and wrists will be conducted. She will be prescribed meloxicam, prednisone, and Flexeril for pain relief. A referral to physical therapy and orthopedics was offered, but the patient prefers to complete imaging and blood work first. (2) Low back pain radiating to right lower extremity: Code(s): M54.50 - Low back pain, unspecified; M79.604 - Pain in right leg Category: Medical Plan: The patient will have x-rays of the lumbar spine and right tibia/fibula. She will be prescribed meloxicam, prednisone, and Flexeril for pain relief. A referral to physical therapy and orthopedics was offered, but the patient prefers to complete imaging and blood work first. Plan Plan Patient was informed and verbally consented to the use of an ambient scribe for clinic note documentation during this visit. 1. Bilateral Hand Numbness The patient will undergo outpatient blood work to assess enzyme levels and rule out diabetes. Imaging studies including x-rays of bilateral hands and wrists will be conducted. She will be prescribed meloxicam, prednisone, and Flexeril for pain relief. A referral to physical therapy and orthopedics was offered, but the patient prefers to complete imaging and blood work first. 2. Lower Back Pain With Radiculopathy The patient will have x-rays of the lumbar spine and right tibia/fibula. She will be prescribed meloxicam, prednisone, and Flexeril for pain relief. A referral to physical therapy and orthopedics was offered, but the patient prefers to complete imaging and blood work first. I discussed with the patient the plan to conduct blood work to assess enzyme levels and rule out diabetes, as well as imaging studies for her hands, wrists, lumbar spine, and right tibia/fibula. We discussed the prescription of meloxicam, prednisone, and Flexeril for pain management. I offered referrals to physical therapy and orthopedics, but the patient expressed a preference to complete imaging and blood work first. We will follow up on the results of these tests to determine the next steps in her care. Orders: Orders Comprehensive Met. Panel Today Z00.00 - Encounter for general adult medical examination without abnormal findings Hemoglobin A1c Today Z00.00 - Encounter for general adult medical examination without abnormal findings XR lumbar spine 4V min Today M54.50 - Low back pain, unspecified, M79.604 - Pain in right leg C Reactive Protein Today Z00.00 - Encounter for general adult medical examination without abnormal findings Creatine Kinase Total Today Z00.00 - Encounter for general adult medical examination without abnormal findings Complete Blood Count no Diff Today R20.0 - Anesthesia of skin Magnesium Today Z00.00 - Encounter for general adult medical examination without abnormal findings XR Wrist Cedrick min 3V Today R20.0 - Anesthesia of skin XR tibia fibula RT 2V Today M54.50 - Low back pain, unspecified, M79.604 - Pain in right leg, R20.0 - Anesthesia of skin XR Hand Bilat min 3v Today R20.0 - Anesthesia of skin Medications: New cyclobenzaprine 10 mg PO Q8H 30 tabs 1RF prednisone 40 mg (2 x 20 mg) PO DAILY 5 days 10 tabs 0RF meloxicam 15 mg PO DAILY 30 tabs 1RF Patient Instructions: - Complete the prescribed blood work and imaging studies as scheduled. - Take meloxicam, prednisone, and Flexeril as directed for pain relief. - Follow up with the clinic after completing tests to discuss results and next steps.
[2025-01-23 14:34] VITALS: BP 110/78; PULSE 67; TEMP 36.3; O2SAT 99; BMI 31.2
== END 2025-01-23 15:03 | disposition home or self-care (01) ==
LOC: HO.HMCH 13:50
PROVIDERS: PCP Internal Medicine; Visit Provider Physician Assistant Medical
DX: R20.0 Anesthesia of skin (principal); M54.50 Low back pain, unspecified; M79.604 Pain in right leg

== ENCOUNTER → 2025-01-23 13:49 | Outpatient (BNVA) | payer BC, SELFPAY | PROVIDERS: PCP Internal Medicine; Visit Provider Physician Assistant Medical | DX: M54.16 Radiculopathy, lumbar region (principal); R20.0 Anesthesia of skin; M79.604 Pain in right leg | CPT/HCPCS: 96127 ==

== ENCOUNTER 2025-01-24 10:42 | Outpatient (REF) | payer BC, SELFPAY ==
--- NOTE | ~2025-01-24 | XR_ITS ---
Exam: 3 views bilateral hands. TECHNIQUE: AP, lateral, oblique view x-rays upper extremity, bilateral INDICATION: Anesthesia of the skin, pain Prior: None FINDINGS: Right hand: Joint spaces are preserved. There are no erosions. There are no osteophytes. Bone mineral density is within normal limits. No acute fracture. Left hand: Joint spaces are preserved. There are no erosions. There are no osteophytes. Bone mineral density is within normal limits. No acute fracture. XR/XR Hand Bilat min 3v Impression: Unremarkable bilateral hands. Electronically signed by: Nolberto Forrester MD 01/24/2025 12:04 PM EDT
--- NOTE | ~2025-01-24 | XR_ITS ---
Exam: 4 view bilateral wrist, upper extremity joints INDICATION: Anesthesia of the skin, pain TECHNIQUE: PA, oblique, lateral, and spot navicular view bilateral wrists Prior: None FINDINGS: Right wrist: Joint spaces are preserved. There is no joint diastases. There is no sclerotic or osteophytic changes. Ulnar variance: +1.5 mm Left wrist: Joint spaces are preserved. There is no joint diastases. There is no sclerotic or osteophytic changes. Ulnar variance: +2.5 mm XR/XR Wrist Cedrick min 3V IMPRESSION: No fracture is evident in the scaphoid bone. However, early fractures may be occult. If there is snuffbox tenderness or concern for scaphoid fracture, repeat x-ray in 7-10 days. Overall, unremarkable exam. Electronically signed by: Nolberto Forrester MD 01/24/2025 12:08 PM EDT
--- NOTE | ~2025-01-24 | XR_ITS ---
EXAMINATION: X-ray lumbar spine. CLINICAL INFORMATION: Low back pain. TECHNIQUE: AP oblique and lateral views. COMPARISON: None FINDINGS: No acute cortical disruption or malalignment. Marginal osteophyte formation, small and L4-5 and L3. No lytic or blastic lesions. No metallic or radiopaque foreign body. XR/XR lumbar spine 4V min IMPRESSION: Mild spondylosis without acute fracture or listhesis. Electronically signed by: Cole Gutierres MD 01/24/2025 11:51 AM EDT
--- NOTE | ~2025-01-24 | XR_ITS ---
EXAMINATION: XR TIBIA AND FIBULA, RIGHT CLINICAL INFORMATION: M54.50 - Low back pain, unspecified; pain right leg. COMPARISON: None available. TECHNIQUE: AP and lateral views of the right tibia and fibula were obtained. FINDINGS: The bones and soft tissues are normal. No fracture. No osseous lesions. XR/XR tibia fibula RT 2V IMPRESSION: Normal right tibia and fibula. Electronically signed by: Yousuf Saul MD 01/24/2025 11:59 AM EDT
[2025-01-24 12:22] LABS: Hematocrit 32.8 % (37.0-47.0); Hemoglobin 10.7 g/dl (12.0-16.0); Mean Corpuscular HGB Conc 32.6 g/dl (31.0-35.0); Mean Corpuscular Hemoglobin 30.8 pg (27.0-33.0); Mean Corpuscular Volume 94.5 fL (80.0-98.0); Mean Platelet Volume 9.2 fL (9.4-12.3); Platelet Count 297 X10*3/uL (160-400); Red Blood Count 3.47 X10*6/uL (4.20-5.50); Red Cell Distribution Width 12.8 % (11.0-16.0); White Blood Count 4.4 X10*3/uL (4.8-10.8)
[2025-01-24 12:29] LABS: Estimated Average Glucose 117 mg/dL; Hemoglobin A1c % 5.7 % (<6.0)
[2025-01-24 13:03] LABS: Alanine Aminotransferase 76 U/L (0-31); Albumin Level 4.4 g/dL (3.5-5.0); Alkaline Phosphatase 65 U/L (39-117); Anion Gap 8 (12-20); Aspartate Amino Transferase 40 U/L (5-31); Bilirubin Total 0.4 mg/dL (0.0-1.0); Blood Urea Nitrogen 12 mg/dL (9-16); C Reactive Protein 0.45 mg/dL (< or = 0.50); Calcium 9.1 mg/dL (8.4-10.2); Carbon Dioxide 30 mmol/L (22-29); Chloride 106 mmol/L (96-108); Estimated Glomerular Filt Rate > 60; Glucose Random 100 mg/dL (60-115); Potassium 4.2 mmol/L (3.3-5.1); Sodium 140 mmol/L (135-145); Total Protein 7.4 g/dL (6.5-8.0)
== END 2025-01-24 10:43 | disposition home or self-care (01) ==
LOC: HO.XRAY 10:42
PROVIDERS: PCP Internal Medicine; Visit Provider Physician Assistant Medical
DX: Z00.00 Encounter for general adult medical examination without abnormal findings (principal); R20.0 Anesthesia of skin; M79.604 Pain in right leg; M54.50 Low back pain, unspecified; Z13.1 Encounter for screening for diabetes mellitus
CPT/HCPCS: 36415; 72110; 73110; 73130; 73590; 80053; 82550; 83036; 83735; 85027; 86140

== ENCOUNTER → 2025-01-24 10:49 | Outpatient (BNV) | payer BC, SELFPAY | PROVIDERS: PCP Internal Medicine; Visit Provider Radiology Diagnostic Radiology | DX: M25.78 Osteophyte, vertebrae (principal); M25.539 Pain in unspecified wrist; M79.643 Pain in unspecified hand; M79.661 Pain in right lower leg | CPT/HCPCS: 72110; 73590 ==

== ENCOUNTER 2025-02-12 12:37 | Outpatient (AMB) | payer BC, SELFPAY ==
[2025-02-12 12:40] VITALS: BP 116/66; PULSE 67; O2SAT 99; BMI 30.6
--- NOTE | 2025-02-12 12:40 | MHC.PC.OV ---
Vital Signs 02/12/25 12:40 Height 5 ft 3 in Weight 172 lb 8 oz BMI 30.6 BP 116/66 Blood Pressure Location Lt brachial Position Sitting Pulse 67 Pulse Source Pulse Oximeter Pulse Oximetry (%) 99 Oxygen Delivery Method Room Air Intake Visit Reasons: gastritis, IFG, asthma Account General Manager Required: No Accompanied by: Self / Same As Patient Allergies latex Allergy (Mild, Verified 02/12/25 13:04) Rash Iodinated Contrast Media (IV CONTRAST) Allergy (Unknown, Verified 02/12/25 13:04) HIVES Milk Containing Products (Dairy) Allergy (Verified 02/12/25 13:04) Unknown peanut Allergy (Verified 02/12/25 13:04) Anaphylaxis shellfish derived Allergy (Verified 02/12/25 13:04) Unknown diphenhydramine (From BENADRYL) Adverse Reaction (Unknown, Verified 02/12/25 13:04) Chest Pain Medication List - Last Reconciled 02/12/25 by Jonas Lebron MD acetaminophen 500 mg PO Q6H PRN albuterol sulfate 90 mcg/actuation 2 puffs inhalation Q4-6H PRN bisacodyl (Dulcolax (bisacodyl)) 20 mg (4 x 5 mg) PO ONCE 1 day cyclobenzaprine 10 mg PO Q8H epinephrine IM DAILY famotidine (Pepcid) 20 mg PO DAILY meloxicam 15 mg PO DAILY polyethylene glycol 3350 (Miralax) 238 grams PO ONCE Tobacco use date assessed: 02/12/25 Dental Screening Dental Screen Date: 02/12/25 Did you have a dental visit in the last 12 months?: Yes Did you have a dental problem in the last 6 months where you did not have access to dental care?: No Was dental information given to patient?: Patient has dentist HPI gastritis, IFG, asthma HPI Details Patient comes in today for her follow up visit States that she feels okay She denies any recent headaches or dizziness Denies any chest pains, no SOB No nausea/vomiting, no abdominal pain No change in bowel habits noted States that she had some labs done a few weeks ago when she presented here to the office for SDV for symptoms of paresthesia, which she states have mostly resolved PFSH Medical History (Updated 02/12/25 @ 14:14 by Jonas Lebron MD) Asthma Lumbar spondylosis Spondylosis Bilateral finger numbness Low back pain radiating to right lower extremity Numbness Vaginal itching Erosive gastritis Vitamin D deficiency Obesity (BMI 30-39.9) Nocturnal leg cramps Surgical History History of tubal ligation Previous section Family History Mother No problems noted. 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 1. Little interest or pleasure in doing things: not at all 2. Feeling down, depressed, or hopeless: not at all 3. Trouble falling or staying asleep, or sleeping too much: not at all 4. Feeling tired or having little energy: not at all 5. Poor appetite or overeating: not at all 6. Feeling bad about yourself - or that you are a failure or have let yourself or your family down: not at all 7. Trouble concentrating on things, such as reading the newspaper or watching television: not at all 8. Moving or speaking so slowly that other people could have noticed. Or the opposite - being so fidgety or restless that you have been moving around a lot more than usual: not at all 9. Thoughts that you would be better off or of hurting yourself in some way: not at all Total score: 0 Depression Screening Interpretation: Negative Depression Screening Done: Yes 97567 - PHQ-9 Billing: Yes Source: Developed by Drs. Bud Crystal, Thais Oliver, Rock Walter and colleagues, with an educational nguyen from [employer]. Thrive Questionnaire Date Thrive assessed: 02/12/25 I am a: Patient What is your living situation today?: I choose not to answer this question Within the past 12 months, did the food you bought not last and you didn't have the money to get more?: I choose not to answer this question Within the past 12 months, did you worry whether your food would run out before you got money to buy more?: I choose not to answer this question Do you have trouble paying for medicines?: No Do you have trouble getting transportation to medical appointments?: No Do you have trouble paying your heating and electricity bill?: No Do you have trouble taking care of your child, family member or friend?: No Do you have trouble with day-to-day activities such as bathing, preparing meals, shopping, managing finances, etc.?: No Are you currently unemployed and looking for a job?: No Are you interested in more education?: No Please select the resources that you would like help with: None Currently or been in a relationship where the following occur: No concerns reported THRIVE Score: 0 AUDIT C Alcohol Use Questionnaire (AUDIT-C) 1. How often do you have a drink containing alcohol?: Never 3. How often do you have six or more drinks on one occasion?: Never Total Score: 0 Score Reviewed/Action Taken: No TANJA-7 AMB Questionnaire TANJA-7 Date TANJA - 7 assessed: 02/12/25 Feeling nervous, anxious, or on edge: 0 = Not at all Not being able to stop or control worryin = Not at all Worrying too much about different things: 0 = Not at all Trouble relaxin = Not at all Being so restless that it is hard to sit still: 0 = Not at all Becoming easily annoyed or irritable: 0 = Not at all Feeling afraid as if something awful might happen: 0 = Not at all Total TANJA-7 score (0-4 normal; 5-9 mild; 10-14 moderate; 15-21 severe): 0 Source: Developed by Drs. Bud Crystal, Thais Oliver, Rock Walter and colleagues, with an educational nguyen from [employer]. TANJA-7 Assessment Billing TANJA-7 Assessment Tool: TANJA-7 Assessment 68869 Review of Systems Const Denies chills, Denies fatigue, Denies fever(s) and Denies headache(s) ENT Denies dysphagia, Denies dizziness, Denies otalgia, Denies headache(s), Denies neck pain, Denies odynophagia and Denies sore throat Card Denies chest pain, Denies irregular heart rhythm, Denies palpitations and Denies dyspnea Resp Denies chest congestion, Denies cough and Denies dyspnea GI Reports abdominal pain (occasionally, over the epigastric area usually after she eats), Denies hematochezia, Denies constipation, Denies dysphagia, Denies heartburn, Denies diarrhea, Denies odynophagia and Denies vomiting Denies urinary frequency, Denies dysuria and Denies urinary urgency Musc Denies back pain, Denies arthralgias and Denies neck pain Skin/Breast Denies rash Neuro Denies dizziness, Denies headache(s) and Denies paresthesias Psych Denies anxiety and Denies depression Endo Denies fatigue and Denies palpitations Doni/Lymph Denies easy bruising Physical exam (Primary Care) Vital Signs: Last Vital Signs Pulse 67 02/12/25 12:40 BP 116/66 02/12/25 12:40 Pulse Ox 99 02/12/25 12:40 Oxygen Delivery Method Room Air 02/12/25 12:40 BMI result Body Mass Index 30.6 Tobacco/Smoking Status: Tobacco use Status Tobacco use date assessed 02/12/25 02/12/25 12:48 Patient Tobacco Use Status Never used Tobacco 02/12/25 12:48 e-Cigarette/Vaping Use Never Used 02/12/25 12:48 PHQ-9: PHQ-9 Score PHQ-9: Total score 0 02/12/25 12:48 Depression Screening Interpretation: Negative Thrive Assessment: Date of Thrive Assessment Date Thrive assessed 02/12/25 02/12/25 12:48 Currently or been in a relationship where the following occur: No concerns reported Const General: no acute distress and alert HENMT Ears: TM's normal bilaterally and EAC's normal Throat: Yes posterior oropharynx normal and Yes tonsils normal (no TP congestion) Neck Neck: Yes supple and No lymphadenopathy Thyroid: Thyroid normal Resp Auscultation: clear to auscultation bilaterally, no rales and no wheezes Cardio Rate: regular rate Rhythm: regular rhythm Heart sounds: no murmurs GI Palpation (GI): Soft to palpation and Tenderness to palpation present (GI) (minimally) in the epigastrum Auscultation: normal bowel sounds General: Yes no CVA tenderness Back/Spine/Pelvis Back: no CVA tenderness Thoracic/Lumbar Spine: No lumbar spinal tenderness Skin Rashes: no rashes Extrem General: Yes no clubbing, cyanosis or edema Results Reviewed Results Reviewed: Laboratory Tests 01/24/25 11:49 WBC 4.4 L Hgb 10.7 L Hct 32.8 L Plt Count 297 Sodium 140 Potassium 4.2 Creatinine 0.61 Estimated GFR > 60 Random Glucose 100 Hemoglobin A1c % 5.7 Calcium 9.1 AST 40 H ALT 76 H Coding Level of Care Code Est Pt Level 4 (63753) Diagnoses Erosive gastritis K29.60 Helicobacter pylori stool test positive A04.8 Mild intermittent asthma without complication J45.20 Asthma severity: mild Asthma persistence: intermittent Asthma complication type: uncomplicated Impaired fasting glucose R73.01 Vitamin D deficiency E55.9 Lumbar spondylosis M47.816 Obesity (BMI 30-39.9) E66.9 Additional Codes TANJA-7 Assessment Billing - TANJA-7 Assessment Tool: TANJA-7 Assessment 60762 ([id number]) PHQ-9 - 35204 - PHQ-9 Billing: Yes ([id number]) Assessment & Plan Assessment & Plan (1) Erosive gastritis: Code(s): K29.60 - Other gastritis without bleeding Category: Medical Plan: Upper GI series done a few months ago revealed (+) findings suggestive or erosive gastritis Reinforced dietary restrictions to minimize aggravating her symptoms Continue Esomeprazole 40 mg QD and Famotidine 40 mg Q HS - these were started / switched by GI from her previous Rx of Pantoproazole and Carafate Have reminded patient again to completely avoid all NSAIDs; she can take OTC Tylenol PRN for pain Patient also tested positive for H. pylori earlier this year and was treated for this appropriately Follow up with GI as scheduled (2) Helicobacter pylori stool test positive: Code(s): A04.8 - Other specified bacterial intestinal infections Category: Medical Plan: S/P Tx for H. pylori with Bismuth quadruple Tx - Tx includes Bismuth subsalicylate 525 mg QID, Esomeprazole 40 mg BID, Doxycycline 100 mg QID and Metronidazole 500 mg QID x 14 days Patient was able to complete at least 2/3 of her regimen before stopping her Rx due to side effects Follow up with GI as scheduled (3) Asthma: Code(s): J45.909 - Unspecified asthma, uncomplicated Category: Medical Qualifiers: Asthma severity: mild Asthma persistence: intermittent Asthma complication type: uncomplicated Qualified Code(s): J45.20 - Mild intermittent asthma, uncomplicated Plan: Controlled - continue Albuterol HFA 1 to 2 inhalations Q 6 hours PRN (4) Impaired fasting glucose: Code(s): R73.01 - Impaired fasting glucose Category: Medical Plan: Her fasting blood glucose was slightly elevated at 117 mg/dl but her HgbA1c was normal at 5.5% back in May 2024 Repeat labs done a couple of weeks ago revealed a normal RBS and HgbA1c (5.7%) Reinforced low calorie/low carb diet Will recheck her labs in a few months for follow up (5) Vitamin D deficiency: Code(s): E55.9 - Vitamin D deficiency, unspecified Category: Medical Plan: Continue Vitamin D3 2000 units QD (6) Lumbar spondylosis: Code(s): M47.816 - Spondylosis without myelopathy or radiculopathy, lumbar region Category: Medical Plan: Lumbar spine x-rays done a couple of weeks ago (January 2025) revealed (+) mild spondylosis without acute fracture or listhesis Reinforced activity and weight-lifting restrictions to avoid aggravating her low back pain (7) Obesity (BMI 30-39.9): Code(s): E66.9 - Obesity, unspecified Category: Medical Plan: Reinforced diet/exercise as tolerated/lose weight Plan To return as scheduled in May 2025 for her annual physical examination Orders: Orders Complete Blood Count Auto Diff 05/17/25 D64.9 - Anemia, unspecified, Z00.00 - Encounter for general adult medical examination without abnormal findings Comprehensive [place]. Panel Fast 05/17/25 E78.00 - Pure hypercholesterolemia, unspecified, R79.89 - Other specified abnormal findings of blood chemistry, Z00.00 - Encounter for general adult medical examination without abnormal findings Vitamin B12 and Folate 05/17/25 E53.8 - Deficiency of other specified B group vitamins, Z00.00 - Encounter for general adult medical examination without abnormal findings Lipid Panel 05/17/25 E78.00 - Pure hypercholesterolemia, unspecified, Z00.00 - Encounter for general adult medical examination without abnormal findings TSH reflex Free T4 05/17/25 E78.00 - Pure hypercholesterolemia, unspecified, Z00.00 - Encounter for general adult medical examination without abnormal findings UA CC w/rflx Micro + Cult 05/17/25 R30.0 - Dysuria, Z00.00 - Encounter for general adult medical examination without abnormal findings Vitamin D 25-OH Total 05/17/25 E55.9 - Vitamin D deficiency, unspecified, Z00.00 - Encounter for general adult medical examination without abnormal findings
== END 2025-02-12 13:12 | disposition home or self-care (01) ==
LOC: HO.HMCH 12:38
PROVIDERS: PCP Internal Medicine; Visit Provider Internal Medicine
DX: K29.60 Other gastritis without bleeding (principal); A04.8 Other specified bacterial intestinal infections; J45.20 Mild intermittent asthma, uncomplicated; Z68.30 Body mass index [BMI] 30.0-30.9, adult; E66.9 Obesity, unspecified; R73.01 Impaired fasting glucose; E55.9 Vitamin D deficiency, unspecified; M47.816 Spondylosis without myelopathy or radiculopathy, lumbar region

== ENCOUNTER → 2025-02-12 12:37 | Outpatient (BNVA) | payer BC, SELFPAY | PROVIDERS: PCP Internal Medicine; Visit Provider Internal Medicine | DX: J45.20 Mild intermittent asthma, uncomplicated (principal); K29.60 Other gastritis without bleeding; A04.8 Other specified bacterial intestinal infections; R73.01 Impaired fasting glucose; E55.9 Vitamin D deficiency, unspecified; M47.816 Spondylosis without myelopathy or radiculopathy, lumbar region; E66.9 Obesity, unspecified; Z68.30 Body mass index [BMI] 30.0-30.9, adult | CPT/HCPCS: 96127 ==

== ENCOUNTER 2025-03-17 13:19 | Outpatient (REF) | payer BC, SELFPAY ==
--- NOTE | ~2025-03-17 | US_ITS ---
EXAMINATIONS: 1. MM DIAGNOSTIC DIGITAL BREAST TOMOSYNTHESIS, RIGHT 2. Targeted ultrasound of the right breast CLINICAL INFORMATION: Callback from screening for the right breast focal asymmetry in the central/outer middle depth COMPARISON: Comparison made to multiple prior, most recent January 20, 2025, and most remote January 31, 2020. TECHNIQUE: Digital breast tomosynthesis is performed in both the craniocaudal and mediolateral oblique views along with computer-aided detection (CAD). Synthesized 2D images are generated from the tomosynthesis. Spot compression tomosynthesis images were also obtained. FINDINGS: BREAST COMPOSITION: There are scattered areas of fibroglandular density (ACR BI-RADS breast composition Category b). RIGHT BREAST: Previously suggested focal asymmetry in the lower outer quadrant measures approximately 0.5-0.6 cm and is located about 4-5 cm from the nipple (spot CC /, spot MLO ). There is a suggestion of an eccentric fatty hilum, which favors a lymph node. The appearance on today's images is not significantly changed from multiple prior studies as far back as 2019 when measured 0.5-0.4 cm. Targeted ultrasound of the right breast was performed at the location of the mammographic finding. This survey did not reveal suspicious sonographic findings. Incidental note is made of the 0.3 x 0.2 x 0.3 cm cyst at 7 o'clock position 3 cm from the nipple. US/US breast RT limited mamm only IMPRESSION: RIGHT BREAST: Probable lymph node correlates with the mammographic finding, minimally larger from 2020. Benign, no mammographic evidence of malignancy. Normal interval follow-up is recommended in 12 months. ASSESSMENT: BI-RADS 2 - Benign Findings RECOMMENDATION: 1 year F/U Results were provided to the patient at time of visit by the technologist. This patient's information was entered into a reminder system with a target due date for their next mammogram. Electronically signed by: Niurka Tapia MD 03/17/2025 03:49 PM EDT
== END 2025-03-17 13:20 | disposition home or self-care (01) ==
LOC: HO.MAMMO 13:19
PROVIDERS: PCP Internal Medicine; Visit Provider Advanced Practice Midwife
DX: N64.89 Other specified disorders of breast (principal)
CPT/HCPCS: 76642; 77061; 77065

== ENCOUNTER → 2025-03-17 13:30 | Outpatient (BNV) | payer BC, SELFPAY | PROVIDERS: PCP Internal Medicine; Visit Provider Radiology Body Imaging | DX: R92.8 Other abnormal and inconclusive findings on diagnostic imaging of breast (principal) | CPT/HCPCS: 76642; 77061; 77065 ==

== ENCOUNTER 2025-03-20 13:54 | Outpatient (AMB) | payer BC, SELFPAY ==
--- NOTE | 2025-03-20 13:54 | MHC.OFFVIS ---
Intake Visit Reasons: Mammo diagnostic results Supervisor Type Disk Quality Control Required: Yes Supervisor Type Disk Quality Control Language: Behavioral Geneticist Services: Supervisor Type Disk Quality Control Present (in person) Supervisor Type Disk Quality Control Name: Paris GrahamDENIS Information Interpreted: non-clinical & clinical Fruit Farmworker: Fruit Farmworker Present Allergies latex Allergy (Mild, Verified 02/12/25 13:04) Rash Iodinated Contrast Media (IV CONTRAST) Allergy (Unknown, Verified 02/12/25 13:04) HIVES Milk Containing Products (Dairy) Allergy (Verified 02/12/25 13:04) Unknown peanut Allergy (Verified 02/12/25 13:04) Anaphylaxis shellfish derived Allergy (Verified 02/12/25 13:04) Unknown diphenhydramine (From BENADRYL) Adverse Reaction (Unknown, Verified 02/12/25 13:04) Chest Pain HPI Comments Details: Tele Health Visit Total time I personally spent on visit and management today: 17 minutes. Time spent included review of pertinent office notes in the electronic health record; review of laboratory and imaging results; review of personal family medical history; discussing diagnosis and plan of care with the patient; documenting the encounter in the EMR. Patient presents to discuss: Mammogram and sonogram results. She denies any breast pain or other concerns. [facility] Medical History Asthma Lumbar spondylosis Spondylosis Bilateral finger numbness Low back pain radiating to right lower extremity Numbness Vaginal itching Erosive gastritis Vitamin D deficiency Obesity (BMI 30-39.9) Nocturnal leg cramps Surgical History History of tubal ligation Previous section Family History Mother No problems noted. 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 [address] Ultrasound Report Signed Patient: Tram Edge MR#: [id number] : 1980 Acct:[id number] Age/Sex: 44 / F ADM Date: 03/17/25 Loc: HO.MAMMO Attending Dr: Sapphire Plunkett CNM Ordering Physician: Sapphire Plunkett CNM Date of Service: 03/17/25 Procedure(s): US breast RT limited mamm only Accession Number(s): [id number] cc: Jonas Lebron MD; Sapphire Plunkett CNM~ EXAMINATIONS: 1. MM DIAGNOSTIC DIGITAL BREAST TOMOSYNTHESIS, RIGHT 2. Targeted ultrasound of the right breast CLINICAL INFORMATION: Callback from screening for the right breast focal asymmetry in the central/outer middle depth COMPARISON: Comparison made to multiple prior, most recent January 20, 2025, and most remote January 31, 2020. TECHNIQUE: Digital breast tomosynthesis is performed in both the craniocaudal and mediolateral oblique views along with computer-aided detection (CAD). Synthesized 2D images are generated from the tomosynthesis. Spot compression tomosynthesis images were also obtained. FINDINGS: BREAST COMPOSITION: There are scattered areas of fibroglandular density (ACR BI-RADS breast composition Category b). RIGHT BREAST: Previously suggested focal asymmetry in the lower outer quadrant measures approximately 0.5-0.6 cm and is located about 4-5 cm from the nipple (spot CC /, spot MLO 13/). There is a suggestion of an eccentric fatty hilum, which favors a lymph node. The appearance on today's images is not significantly changed from multiple prior studies as far back as 2019 when measured 0.5-0.4 cm. Targeted ultrasound of the right breast was performed at the location of the mammographic finding. This survey did not reveal suspicious sonographic findings. Incidental note is made of the 0.3 x 0.2 x 0.3 cm cyst at 7 o'clock position 3 cm from the nipple. US/US breast RT limited mamm only IMPRESSION: RIGHT BREAST: Probable lymph node correlates with the mammographic finding, minimally larger from 2019. Benign, no mammographic evidence of malignancy. Normal interval follow-up is recommended in 12 months. ASSESSMENT: BI-RADS 2 - Benign Findings RECOMMENDATION: 1 year F/U Results were provided to the patient at time of visit by the technologist. This patient's information was entered into a reminder system with a target due date for their next mammogram. Electronically signed by: Niurka Tapia MD 03/17/2025 03:49 PM EDT RP Workstation: [email or web address] Dictated By: Niurka Tapia MD Signed By: <Electronically signed by Niurka Tapia MD in OV> 03/17/25 1549 DD/ 1400 TD/TT: 03/17/25 1416 Mortar Man: Assessment & Plan Assessment & Plan (1) Breast cyst: Code(s): N60.09 - Solitary cyst of unspecified breast Qualifiers: Laterality: right Qualified Code(s): N60.01 - Solitary cyst of right breast Plan: Discussed breast evaluation findings as noted per report. Plan RIGHT BREAST: Probable lymph node correlates with the mammographic finding, minimally larger from 2019. Benign, no mammographic evidence of malignancy. Normal interval follow-up is recommended in 12 months. Advised to call if there is any right-sided breast pain or breast changes in concerns. Follow up radiology recommendations. The patient expressed understanding and agreement with the plan of care. All of her questions and concerns were addressed to the best of my ability. This note is constructed using voice recognition software. While every effort has been made to ensure accuracy, jewelry cutter errors may have been included. Coding Level of Care Code Tele Est Pt Level 3 (56325) Diagnoses Cyst of right breast N60.01 Laterality: right
== END 2025-03-20 15:04 | disposition home or self-care (01) ==
LOC: HO.HWS 13:54
PROVIDERS: PCP Internal Medicine; Visit Provider Advanced Practice Midwife
DX: N60.01 Solitary cyst of right breast (principal)
CPT/HCPCS: 99213

== ENCOUNTER 2025-03-21 09:15 | Outpatient (AMB) | payer BC, SELFPAY ==
[2025-03-21 09:30] VITALS: BP 116/68; PULSE 58; BMI 30.8
--- NOTE | 2025-03-21 09:30 | A.OFFVIS_ITS ---
Vital Signs 03/21/25 09:30 Height 5 ft 3 in Weight 174 lb 2.643 oz BMI 30.8 BP 116/68 Blood Pressure Location Rt brachial Position Sitting Pulse 58 Pulse Source Pulse Oximeter Intake Visit Reasons: 2 month f/up Intake Note: 2 month f/u Server Security Administrator Required: No Server Security Administrator Services: Server Security Administrator Offered & Declined Telephone Station Installer: Telephone Station Installer Present Accompanied by: Spouse Allergies latex Allergy (Mild, Verified 03/21/25 09:36) Rash Iodinated Contrast Media (IV CONTRAST) Allergy (Unknown, Verified 03/21/25 09:36) HIVES Milk Containing Products (Dairy) Allergy (Verified 03/21/25 09:36) Unknown peanut Allergy (Verified 03/21/25 09:36) Anaphylaxis shellfish derived Allergy (Verified 03/21/25 09:36) Unknown diphenhydramine (From BENADRYL) Adverse Reaction (Unknown, Verified 03/21/25 09:36) Chest Pain Medication List - Last Reconciled 03/21/25 by Sahra Piedra NP-C acetaminophen 500 mg PO Q6H PRN albuterol sulfate 90 mcg/actuation 2 puffs inhalation Q4-6H PRN epinephrine IM DAILY famotidine (Pepcid) 20 mg PO DAILY meloxicam 15 mg PO DAILY HPI HPI 2 month f/up: Details: Tram is a 44-year-old female with past medical history of asthma, impaired fasting glucose, obesity who recently reported chest discomfort and underwent a stress echocardiogram, now presenting for follow-up. Today she reports that she no longer gets chest discomfort. Her prior symptom has fully resolved. She reports good activity tolerance. She is unclear why she now feels well. No concerning shortness of breath, PND, orthopnea or edema. No lightheadedness, palpitations. Compliant with her medications. is present and assisting with Welsh translation. [facility] Medical History Asthma Lumbar spondylosis Spondylosis Bilateral finger numbness Low back pain radiating to right lower extremity Numbness Vaginal itching Erosive gastritis Vitamin D deficiency Obesity (BMI 30-39.9) Nocturnal leg cramps Surgical History History of tubal ligation Previous section Family History Mother No problems noted. 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 Cognitive needs: No Hearing needs: No Vision needs: No Review of Systems Const All systems reviewed & are unremarkable except as noted in HPI and below Card Denies chest pain, Denies chest pain at rest, Denies chest pain with activity, Denies syncope, Denies rapid heart rate, Denies palpitations, Denies dyspnea, Denies dyspnea on exertion and Denies orthopnea Resp Denies dyspnea and Denies dyspnea on exertion GI Denies no additional complaints Neuro Denies no additional complaints and Denies syncope Endo Denies palpitations Physical Exam Vital Signs: Last Vital Signs Pulse 58 03/21/25 09:30 BP 116/68 03/21/25 09:30 BMI result Body Mass Index 30.8 Const General: cooperative, healthy appearing, comfortable and no acute distress Orientation/consciousness: patient oriented x3 Neck Neck: Yes normal visual inspection Resp Effort & Inspection: normal respiratory effort Auscultation: clear to auscultation bilaterally, no rales, no rhonchi and no wheezes Cardio Rate: regular rate Rhythm: regular rhythm Heart sounds: S1 normal heart sound present, S2 normal heart sound present, no gallops, no murmurs and no rubs Neuro General: patient oriented x3 Extrem General: Yes normal to inspection Psych Appearance: grossly normal Mental Status: mental status grossly normal Speech and movement: Normal speech and movement present Assessment & Plan Assessment & Plan (1) Precordial chest pain: Code(s): R07.2 - Precordial pain Category: Medical Plan: Reports of chest tightness with activity. Nuclear stress test done 03/14/2022 for chest discomfort showed likely normal myocardial perfusion imaging. EKGs reviewed and do show nonspecific ST and T-wave abnormalities at times.High sensitivity troponins have been done about 7 times in the last 2 years and they are all normal. Stress echocardiogram done 01/13/2025 with exercise 8 minutes with report of shortness of breath and chest tightness with the EKG changes however normal echo images indicating no ischemia, diastolic dysfunction or pulmonary hypertension. Test results reviewed with her in detail. Currently reports resolution of her chest symptoms. No further testing needed at this time. Signs and symptoms of angina reviewed. Continue with risk factor modification. Cardiology follow-up PRN. (2) Abnormal finding on EKG: Code(s): R94.31 - Abnormal electrocardiogram [ECG] [EKG] Category: Medical Plan: Nonspecific EKG abnormalities. Plan Time spent on chart review, documentation, interview and assessment Coding Level of Care Code Est Pt Level 3 (74966) Complex EM visit Add On G2211 Diagnoses Precordial chest pain R07.2 Abnormal finding on EKG R94.31 Time Spent (min) 22
== END 2025-03-21 09:56 | disposition home or self-care (01) ==
LOC: HO.HCS 09:16
PROVIDERS: PCP Internal Medicine; Visit Provider Nurse Practitioner Family
DX: R07.2 Precordial pain (principal); R94.31 Abnormal electrocardiogram [ECG] [EKG]
CPT/HCPCS: 99213

== ENCOUNTER 2025-05-23 08:40 | Outpatient (AMB) | payer BC, SELFPAY ==
[2025-05-23 08:41] VITALS: BP 118/76; PULSE 55; O2SAT 99; BMI 31.1
--- NOTE | 2025-05-23 08:41 | MHC.PC.OV ---
Vital Signs 05/23/25 08:41 Height 5 ft 3 in Weight 175 lb 8 oz BMI 31.1 BP 118/76 Blood Pressure Location Lt brachial Position Sitting Pulse 55 Pulse Source Pulse Oximeter Pulse Oximetry (%) 99 Oxygen Delivery Method Room Air Intake Visit Reasons: Annual Exam Kelp Cutter Required: No Accompanied by: Self / Same As Patient Allergies latex Allergy (Mild, Verified 05/23/25 09:15) Rash Iodinated Contrast Media (IV CONTRAST) Allergy (Unknown, Verified 05/23/25 09:15) HIVES Milk Containing Products (Dairy) Allergy (Verified 05/23/25 09:15) Unknown peanut Allergy (Verified 05/23/25 09:15) Anaphylaxis shellfish derived Allergy (Verified 05/23/25 09:15) Unknown diphenhydramine (From BENADRYL) Adverse Reaction (Unknown, Verified 05/23/25 09:15) Chest Pain Medication List - Last Reconciled 05/23/25 by Jonas Lebron MD acetaminophen 500 mg PO Q6H PRN albuterol sulfate 90 mcg/actuation 2 puffs inhalation Q4-6H PRN epinephrine IM DAILY famotidine (Pepcid) 20 mg PO DAILY meloxicam 15 mg PO DAILY Tobacco use date assessed: 05/23/25 Dental Screening Dental Screen Date: 05/23/25 Did you have a dental visit in the last 12 months?: Yes Did you have a dental problem in the last 6 months where you did not have access to dental care?: No Was dental information given to patient?: Patient has dentist HPI Annual Exam HPI Details Patient comes in today for her annual physical examination States that she feels okay She denies any headaches or dizziness Denies any chest pains, no SOB No nausea/vomiting, no abdominal pain No change in bowel habits noted Denies any acute urinary symptoms Needs a couple of her Rx refilled She was not able to get her follow up labs done prior to coming in for her appointment today She had her yearly gynecology exam and pap smear done back in November 2024 She was seen for her precolonoscopy visit back in December 2024 and is currently just waiting for her screening colonoscopy to be scheduled She had her annual mammogram done a couple of months ago in March 2025 [facility] Medical History Asthma Lumbar spondylosis Spondylosis Bilateral finger numbness Low back pain radiating to right lower extremity Numbness Vaginal itching Erosive gastritis Vitamin D deficiency Obesity (BMI 30-39.9) Nocturnal leg cramps Surgical History History of tubal ligation Previous section Family History Mother No problems noted. 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 Cognitive needs: No Hearing needs: No Vision needs: No Questionnaire Thrive Questionnaire Date Thrive assessed: 01/23/25 I am a: Patient What is your living situation today?: I choose not to answer this question Within the past 12 months, did the food you bought not last and you didn't have the money to get more?: I choose not to answer this question Within the past 12 months, did you worry whether your food would run out before you got money to buy more?: I choose not to answer this question Do you have trouble paying for medicines?: No Do you have trouble getting transportation to medical appointments?: No Do you have trouble paying your heating and electricity bill?: No Do you have trouble taking care of your child, family member or friend?: No Do you have trouble with day-to-day activities such as bathing, preparing meals, shopping, managing finances, etc.?: No Are you currently unemployed and looking for a job?: No Are you interested in more education?: No Please select the resources that you would like help with: None Currently or been in a relationship where the following occur: No concerns reported THRIVE Score: 0 AUDIT C Alcohol Use Questionnaire (AUDIT-C) 1. How often do you have a drink containing alcohol?: Never 3. How often do you have six or more drinks on one occasion?: Never Total Score: 0 Score Reviewed/Action Taken: No TANJA-7 AMB Questionnaire TANJA-7 Date TANJA - 7 assessed: 02/12/25 Source: Developed by Drs. Bud Crystal, Thais Oliver, Rock Walter and colleagues, with an educational nguyen from [employer]. Review of Systems Const Denies chills, Denies fatigue, Denies fever(s), Denies headache(s) and Denies malaise Eyes Denies blurry vision, Denies change in vision, Denies irritation and Denies itchy eyes ENT Denies dysphagia, Denies dizziness, Denies otalgia, Denies headache(s), Denies nasal congestion, Denies neck pain, Denies odynophagia, Denies sinus pain and Denies sore throat Card Denies chest pain, Denies rapid heart rate, Denies irregular heart rhythm, Denies palpitations and Denies dyspnea Resp Denies chest congestion, Denies cough, Denies dyspnea and Denies wheezing GI Denies abdominal pain, Denies bloating, Denies constipation, Denies dysphagia, Denies heartburn, Denies diarrhea, Denies nausea, Denies odynophagia and Denies vomiting Denies hematuria, Denies urinary frequency, Denies dysuria, Denies urinary incontinence and Denies urinary urgency Musc Denies back pain, Denies arthralgias, Denies joint swelling, Denies muscle weakness and Denies neck pain Skin/Breast Denies breast pain, Denies breast mass, Denies change in pigmentation, Denies lesions, Denies rash and Denies unusual bruising Neuro Denies dizziness, Denies headache(s) and Denies paresthesias Psych Denies anxiety and Denies depression Endo Denies fatigue and Denies palpitations Doni/Lymph Denies easy bruising Aller/Immun Denies itchy eyes and Denies wheezing Physical exam (Primary Care) Vital Signs: Last Vital Signs Pulse 55 05/23/25 08:41 BP 118/76 05/23/25 08:41 Pulse Ox 99 05/23/25 08:41 Oxygen Delivery Method Room Air 05/23/25 08:41 BMI result Body Mass Index 31.1 Tobacco/Smoking Status: Tobacco use Status Tobacco use date assessed 05/23/25 05/23/25 08:47 Patient Tobacco Use Status Never used Tobacco 05/23/25 08:47 e-Cigarette/Vaping Use Never Used 05/23/25 08:47 Thrive Assessment: Date of Thrive Assessment Date Thrive assessed 01/23/25 05/23/25 08:47 Currently or been in a relationship where the following occur: No concerns reported Const General: no acute distress, alert and awake Orientation/consciousness: patient oriented x3 HENMT Head: Yes normocephalic and Yes atraumatic Ears: external ears normal, TM's normal bilaterally and EAC's normal General nose exam: No nasal discharge present Face and sinus: Yes normal facial exam and Yes sinuses nontender Teeth and gingiva: dentition normal Throat: Yes posterior oropharynx normal and Yes tonsils normal (no TP congestion) Eyes Eyelids: Yes eyelids normal Conjunctivae: conjunctivae normal Pupils: Equal, round and reactive pupils present EOM: EOMs intact bilaterally Neck Neck: Yes no lymphadenopathy and Yes supple Thyroid: Thyroid normal Resp Auscultation: clear to auscultation bilaterally, no rales and no wheezes Cardio Rate: regular rate Rhythm: regular rhythm Heart sounds: no murmurs GI Palpation (GI): Soft to palpation, nontender and No hepatosplenomegaly present Auscultation: normal bowel sounds General: Yes no CVA tenderness Back/Spine/Pelvis Back: no CVA tenderness Thoracic/Lumbar Spine: thoracic and lumbar spine normal to inspection Skin Lesions: no lesions Rashes: no rashes Neuro General: patient oriented x3, moves all extremities, no focal motor deficits and CN's II-XI intact bilaterally Cranial nerves: Yes Equal, round and reactive pupils present Cognition (Neuro): normal cognition Gait exam (Neuro): Normal gait present Extrem General: Yes no clubbing, cyanosis or edema Coding Level of Care Code Est Pt Prev Care 40-64y(27992) Diagnoses Annual physical exam Z00.00 Mild intermittent asthma without complication J45.20 Asthma severity: mild Asthma persistence: intermittent Asthma complication type: uncomplicated Erosive gastritis K29.60 Helicobacter pylori stool test positive A04.8 Impaired fasting glucose R73.01 Vitamin D deficiency E55.9 Lumbar spondylosis M47.816 Obesity (BMI 30-39.9) E66.9 Assessment & Plan Assessment & Plan (1) Annual physical exam: Code(s): Z00.00 - Encounter for general adult medical examination without abnormal findings Category: Medical Plan: She was not able to get her follow up labs done prior to coming in for her appointment today - is instructed to go and get her labs done MICHELLE to complete her annual exam She is up-to-date on all of her cancer screenings - she had her yearly gynecology exam and pap smear done back in November 2024 She was seen for her precolonoscopy visit back in December 2024 and is currently just waiting for her screening colonoscopy to be scheduled She had her annual mammogram done a couple of months ago in March 2025 (2) Asthma: Code(s): J45.909 - Unspecified asthma, uncomplicated Category: Medical Qualifiers: Asthma severity: mild Asthma persistence: intermittent Asthma complication type: uncomplicated Qualified Code(s): J45.20 - Mild intermittent asthma, uncomplicated Plan: Controlled - continue Albuterol HFA 1 to 2 inhalations Q 6 hours PRN (3) Erosive gastritis: Code(s): K29.60 - Other gastritis without bleeding Category: Medical Plan: Her upper GI series done last year (March 2024) revealed (+) findings suggestive or erosive gastritis Reinforced again dietary restrictions to minimize aggravating her symptoms Continue Esomeprazole 40 mg QD and Famotidine 40 mg Q HS Have reminded patient again to completely avoid all NSAIDs; can take OTC Tylenol PRN for pain Patient also tested positive for H. pylori earlier this year and was treated for this appropriately She will likely have EGD done as well for follow up of her gastritis when she is finally scheduled for her screening colonoscopy, which they are still waiting on Follow up with GI as scheduled (4) Helicobacter pylori stool test positive: Code(s): A04.8 - Other specified bacterial intestinal infections Category: Medical Plan: S/P Tx for H. pylori with Bismuth quadruple Tx - Tx includes Bismuth subsalicylate 525 mg QID, Esomeprazole 40 mg BID, Doxycycline 100 mg QID and Metronidazole 500 mg QID x 14 days Patient was able to complete at least 2/3 of her regimen before stopping her Rx due to side effects Follow up with GI as scheduled (5) Impaired fasting glucose: Code(s): R73.01 - Impaired fasting glucose Category: Medical Plan: Her fasting blood glucose was at 100 mg/dl and her HgbA1c was normal at 5.7% when last checked in January 2025 Reinforced low calorie/low carb diet Will recheck her labs again in 4 months for follow up (6) Vitamin D deficiency: Code(s): E55.9 - Vitamin D deficiency, unspecified Category: Medical Plan: Continue Vitamin D3 2000 units QD (7) Lumbar spondylosis: Code(s): M47.816 - Spondylosis without myelopathy or radiculopathy, lumbar region Category: Medical Plan: Lumbar spine x-rays done back in January 2025 revealed (+) mild spondylosis without acute fracture or listhesis Reinforced activity and weight-lifting restrictions to avoid aggravating her low back pain (8) Obesity (BMI 30-39.9): Code(s): E66.9 - Obesity, unspecified Category: Medical Plan: Reinforced diet/exercise as tolerated/lose weight Plan Follow up in 4 months Medications: Changed From esomeprazole magnesium (Nexium) 40 mg PO DAILY 30 caps 5RF K21.9 - Gastro-esophageal reflux disease without esophagitis, K29.60 - Other gastritis without bleeding To esomeprazole magnesium (Nexium) 40 mg PO DAILY 90 caps 3RF 90 days K21.9 - Gastro-esophageal reflux disease without esophagitis, K29.60 - Other gastritis without bleeding From famotidine (Pepcid) 20 mg PO DAILY 30 tabs 3RF K21.9 - Gastro-esophageal reflux disease without esophagitis, K29.60 - Other gastritis without bleeding To famotidine (Pepcid) 20 mg PO DAILY 90 tabs 3RF 90 days K21.9 - Gastro-esophageal reflux disease without esophagitis, K29.60 - Other gastritis without bleeding Refilled albuterol sulfate 90 mcg/actuation 2 puffs inhalation Q4-6H PRN 8.5 grams 5RF shortness of breath or wheezing
== END 2025-05-23 09:37 | disposition home or self-care (01) ==
LOC: HO.HMCH 08:41
PROVIDERS: PCP Internal Medicine; Visit Provider Internal Medicine
DX: Z00.00 Encounter for general adult medical examination without abnormal findings (principal); J45.20 Mild intermittent asthma, uncomplicated; E66.9 Obesity, unspecified; Z68.31 Body mass index [BMI] 31.0-31.9, adult; K29.60 Other gastritis without bleeding; A04.8 Other specified bacterial intestinal infections; R73.01 Impaired fasting glucose; E55.9 Vitamin D deficiency, unspecified; M47.816 Spondylosis without myelopathy or radiculopathy, lumbar region

== ENCOUNTER 2025-05-23 08:40 | Outpatient (REF) | payer BC, SELFPAY ==
[2025-05-23 10:03] LABS: MANUAL DIFF FLAG NO
[2025-05-23 10:26] LABS: Hematocrit 39.2 % (37.0-47.0); Hemoglobin 12.8 g/dl (12.0-16.0); Imm Gran Abs Auto 0.02 X10*3/uL (0.00-0.03); Imm Gran Pct Auto 0.3 % (0.0-0.4); Lymphocytes Absolute Auto 1.9 X10*3/uL (1.2-4.9); Mean Corpuscular HGB Conc 32.7 g/dl (31.0-35.0); Mean Corpuscular Hemoglobin 31.0 pg (27.0-33.0); Mean Corpuscular Volume 94.9 fL (80.0-98.0); NRBC Abs Auto 0.000 X10*3/uL (0.0-0.012); NRBC Pct Auto 0.0 /100WBC (0.0-0.2); Platelet Count 253 X10*3/uL (160-400); Red Blood Count 4.13 X10*6/uL (4.20-5.50); White Blood Count 6.0 X10*3/uL (4.8-10.8)
[2025-05-23 11:09] LABS: Appearance Urine Clear; Glucose Urine UA Negative (Negative); PH 5.5 (5.0-9.0); Specific Gravity - Urine 1.015 (1.005-1.025); UMIC TRIGGER UACC YES
[2025-05-23 11:14] LABS: Alanine Aminotransferase 15 U/L (0-31); Albumin Level 4.7 g/dL (3.5-5.0); Alkaline Phosphatase 77 U/L (39-117); Anion Gap 11 (12-20); Aspartate Amino Transferase 23 U/L (5-31); Blood Urea Nitrogen 11 mg/dL (9-16); Calcium 9.4 mg/dL (8.4-10.2); Carbon Dioxide 28 mmol/L (22-29); Chloride 107 mmol/L (96-108); Cholesterol 176 mg/dL (<200); Estimated Glomerular Filt Rate > 60; HDL Cholesterol 52 mg/dL (>40); Potassium 4.5 mmol/L (3.3-5.1); Sodium 141 mmol/L (135-145); Total Protein 7.7 g/dL (6.5-8.0); Triglycerides 75 mg/dL (<150)
[2025-05-23 11:31] LABS: Folate 11.4 ng/mL (> or = 4.0); Vitamin B12 359 pg/mL (200-900)
== END 2025-05-23 08:41 | disposition home or self-care (01) ==
LOC: HO.LAB 08:40
PROVIDERS: PCP Internal Medicine; Visit Provider Internal Medicine
DX: Z00.00 Encounter for general adult medical examination without abnormal findings (principal); J45.20 Mild intermittent asthma, uncomplicated; K29.60 Other gastritis without bleeding; A04.8 Other specified bacterial intestinal infections; R73.01 Impaired fasting glucose; E55.9 Vitamin D deficiency, unspecified; M47.816 Spondylosis without myelopathy or radiculopathy, lumbar region; E66.9 Obesity, unspecified; E53.8 Deficiency of other specified B group vitamins; E78.00 Pure hypercholesterolemia, unspecified; R30.0 Dysuria; D64.9 Anemia, unspecified; R79.89 Other specified abnormal findings of blood chemistry; Z68.31 Body mass index [BMI] 31.0-31.9, adult
CPT/HCPCS: 36415; 80053; 80061; 81001; 81003; 82306; 82607; 82746; 84443; 85025